=== PATIENT | female | born 1940 | race Caucasian/White ===

== ENCOUNTER 2020-01-18 08:50 | Outpatient (CLI) | payer MEDICARE, SELFPAY ==
--- NOTE | ~2020-01-18 | US_ITS ---
US arterial ankle brachial ind INDICATION: Hypertension. Atherosclerosis. TECHNIQUE: Segmental pressures and plethysmographic and Doppler waveforms of the brachial and lower e xtremity arteries were obtained. COMPARISON: None. FINDINGS: Right and left brachial artery pressures of 191 mm Hg and 184 mm Hg, respectively, are concordant (no rmal difference <= 30 mmHg). The right ankle-brachial index (MIGDALIA) is 1.1 (normal >= 0.9-1.0). The right great toe-brachial index ( TBI) is 0.61 (normal >= 0.60). The left MIGDALIA is 1.08. The left TBI is 0.6. IMPRESSION: 1. Normal bilateral ankle-brachial indices. Reviewed, dictated and finalized at location A.
== END 2020-01-18 08:51 | disposition home or self-care (01) ==
LOC: CHSIMG 08:53
PROVIDERS: PCP Internal Medicine; Visit Provider Internal Medicine
DX: I70.213 Atherosclerosis of native arteries of extremities with intermittent claudication, bilateral legs (principal)
CPT/HCPCS: 93922

== ENCOUNTER 2020-04-08 07:35 | Outpatient (CLI) | payer MEDICARE, SELFPAY ==
--- NOTE | ~2020-04-08 | MR_ITS ---
EXAMINATION: MR lumbar spine wo con DATE: 04/08/2020 08:26 INDICATION: Chronic low back pain TECHNIQUE: Magnetic resonance imaging (MRI) of the lumbar spine was performed without intravenous con trast. Sequences included sagittal T2-weighted FSE, sagittal T2-weighted FS FSE, sagittal T1-weighted FSE, and axial T2-weighted FSE. COMPARISON: 09/16/2015 FINDINGS: Mild lumbar levocurvature and compensatory dextrocurvature centered at the thoracolumbar junction. 2 mm retrolisthesis L2 on L3, 2 mm anterolisthesis L3 on L4 and 4 mm anterolisthesis L4 on L5. There ar e Schmorl's nodes at several levels in the lumbar and lower thoracic spine. Vertebral body heights ar e normal. Moderate to severe disc height loss at L2-L3 and L3-L4, moderate disc height loss at L4-L5 and mild disc height loss at L5-S1. The conus medullaris terminates at L2. There is normal signal in the caudal spinal cord. [place] disease with degenerative changes along the articulating cephalad and caudal margin of the L1-L5 spinous processes. Paravertebral soft tissues are unremarkable. The follo wing disc levels are specifically discussed: T12-L1: The disc does not extend beyond the endplate margin. There is mild bilateral facet joint oste oarthritis. There is no neural foraminal stenosis. There is no central canal stenosis. L1-L2: Disc is mildly bulging. There is mild left and mild to moderate right facet joint osteoarthrit is. There is mild bilateral neural foraminal stenosis. There is minimal central canal stenosis. L2-L3: Disc is bulging with annular fissure. There is hypertrophy of the ligamentum flavum. There is moderate to severe bilateral facet joint osteoarthritis. There is moderate to severe bilateral neura l foraminal stenosis. There is moderate to severe central canal stenosis with minimal CSF signal surr ounding the centrally clustered nerve roots. L3-L4: Disc is bulging with annular fissure. There is hypertrophy of the ligamentum flavum. There is severe bilateral facet joint osteoarthritis. There is moderate bilateral neural foraminal stenosis. There is moderate to severe central canal stenosis with minimal CSF signal surrounding the centrally clustered nerve roots. L4-L5: Disc is bulging with annular fissure There is severe bilateral facet joint osteoarthritis. The re is moderate left and moderate to severe right neural foraminal stenosis. There is severe central c anal stenosis. L5-S1: Annular fissure and small left foraminal zone disc protrusion There is severe bilateral facet joint osteoarthritis. There is mild to moderate right and mild left neural foraminal stenosis. There is no central canal stenosis. IMPRESSION: 1. Severe lumbar spondylosis. Reviewed, dictated and finalized at location A.
== END 2020-04-08 07:36 | disposition home or self-care (01) ==
LOC: CHSIMG 07:37
PROVIDERS: PCP Internal Medicine; Visit Provider Internal Medicine
DX: M54.5 Low back pain (principal); M54.10 Radiculopathy, site unspecified
CPT/HCPCS: 72148

== ENCOUNTER 2020-05-08 09:00 | Outpatient (CLI) | payer MEDICARE, SELFPAY ==
--- NOTE | ~2020-05-08 | US_ITS ---
US arterial ankle brachial ind INDICATION: Claudication. Atherosclerosis. TECHNIQUE: Segmental pressures and plethysmographic and Doppler waveforms of the brachial and lower e xtremity arteries were obtained. COMPARISON: None. FINDINGS: Right and left brachial artery pressures of 187 mm Hg and 196 mm Hg, respectively, are concordant (no rmal difference <= 30 mmHg). The right ankle-brachial index (MIGDALIA) is 1.14 (normal >= 0.9-1.0). The right great toe-brachial index (TBI) is normal (normal >= 0.60). The left MIGDALIA is 1.04. The left TBI is normal. IMPRESSION: 1. Normal bilateral ankle-brachial indices. Reviewed, dictated and finalized at location A.
== END 2020-05-08 09:01 | disposition home or self-care (01) ==
LOC: CHSIMG 09:01
PROVIDERS: PCP Internal Medicine; Visit Provider Neurological Surgery
DX: I70.213 Atherosclerosis of native arteries of extremities with intermittent claudication, bilateral legs (principal)
CPT/HCPCS: 93922

== ENCOUNTER 2020-08-17 14:01 | Emergency (ER) | payer MEDICARE, SELFPAY ==
--- NOTE | ~2020-08-17 | XR_ITS ---
EXAMINATION: XR ankle LT min 3V DATE: 08/17/2020 14:35 INDICATION: Left ankle pain TECHNIQUE: Anteroposterior, lateral, mortise, and additional oblique view of the ankle were obtained. COMPARISON: None. FINDINGS: There is a linear heterotopic ossification projecting dorsal to the navicular on the latera l view. There is soft tissue swelling of the dorsal foot and ankle. Bone alignment is normal. Advance d osteoarthritis is noted at the tarsometatarsal joints. Calcified atherosclerosis is noted. IMPRESSION: 1. 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 Reviewed, dictated and finalized at location A. Y MANAGER IMPRESSION: 1. Linear heterotopic ossification projecting dorsal to the navicular on the la teral view which could reflect avulsion injury.
--- NOTE | ~2020-08-17 | XR_ITS ---
EXAMINATION: XR foot LT min 3V DATE: 08/17/2020 14:35 INDICATION: Left foot pain TECHNIQUE: Dorsoplantar, lateral, and 2 oblique views of the left foot were obtained. COMPARISON: None. FINDINGS: The bones are osteopenic which limits sensitivity for fracture. There is a linear heterotop ic ossification projecting dorsal to the navicular on the lateral view. There is dorsal soft tissue s welling of the foot. Moderate osteoarthritis is noted in multiple interphalangeal joints. There is al so moderate osteoarthritis at the first metatarsophalangeal joint. Severe osteoarthritis is noted at the second through fifth tarsometatarsal joints. Calcified atherosclerosis is noted. IMPRESSION: 1. 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 Reviewed, dictated and finalized at location A. STANT PROJECT MANAGER IMPRESSION: 1. Linear heterotopic ossification projecting dorsal to the navicular on the la teral view which could reflect avulsion injury.
--- NOTE | 2020-08-17 14:14 | ED.LOWEXIN ---
HPI - Extremity Injury (Lower) General Chief Complaint: Fall Stated Complaint: fell a week ago pain and bruising in l foot Time Seen by Provider: 08/17/20 14:03 Source: patient Mode of arrival: ambulatory Limitations: no limitations History of Present Illness HPI Narrative: 80-year-old woman comes in today complaining of left ankle and foot pain that started approximately 1 week ago. Patient states that her daughter's dog knocked her over and she fell forward on her knees, injuring her knees and feet. She states that she no longer has pain in her right ankle or foot but her left ankle and foot continued to her and show swelling and bruising. She denies any numbness or tingling. She denies head injury or other injuries. She takes warfarin for factor 5 Leivinicio LAMA complaint: ankle injury and foot injury Onset (ago): day(s) (9) Injury: Left: ankle, foot and toes Type of Injury: hyperflexion Place: home Severity: moderate Relieving factors: rest Exacerbating factors: weight bearing, movement and palpation Context: fall Associated symptoms: swelling and ambulatory Other symptoms: none Related Data Home Medications Medication Instructions Recorded Confirmed hydrocodone-acetaminophen 1 tablet PO Q4H PRN 08/17/20 08/17/20 losartan 100 mg PO DAILY 08/17/20 08/17/20 warfarin 4 mg PO DAILY 08/17/20 08/17/20 Allergies Allergy/AdvReac Type Severity Reaction Status Date / Time No Known Allergies Allergy Unverified 08/17/20 14:28 Review of Systems Constitutional: Constitutional: Denies chills and Denies fever(s) ENT: Denies dysphagia, Denies nasal congestion and Denies sore throat Cardiovascular: Cardiovascular: Denies chest pain and Denies radiating jaw, neck or arm pain Respiratory: Respiratory: Denies cough and Denies dyspnea Gastrointestinal: Gastrointestinal: Denies abdominal pain, Denies nausea and Denies vomiting Neurologic: Denies vertigo, Denies dizziness, Denies syncope and Denies focal weakness Hematologic/Lymphatic: Hematologic/Lymphatic: Reports easy bleeding and Reports easy bruising Allergic/Immunologic: Allergic/Immunologic: Denies lip swelling and Denies tongue swelling PMFSH Past Medical History Medical History (Updated 08/17/20 @ 15:03 by Jhonny Rios MD) Factor 5 Leiden mutation, heterozygous Hypertension Family History Family History (Updated 07/30/17 @ 09:22 by DOCTOR UNKNOWN) Father Family history of emphysema, Onset Age: 87 Other Cerebrovascular accident Family history of arthritis Family history of lung cancer Family history of malignant neoplasm of ovary Family history of pancreatic cancer Hypertension Social History Social History Smoking status: Never smoker Alcohol intake: never Gender identity (if verbalized by the patient): Female Exam Const: General: no acute distress and alert Nutritional Appearance: obese Orientation/consciousness: patient oriented x3 Limitations: no limitations Eyes: Conjunctivae: conjunctivae normal Pupils: Equal, round and reactive pupils present EOM: EOMs intact bilaterally Resp: Effort & Inspection: normal respiratory effort and not labored Auscultation: clear to auscultation bilaterally, no rales, no rhonchi and no wheezes Cardio: Rate: regular rate Rhythm: regular rhythm Heart sounds: no murmurs Skin: General skin exam: normal color, no jaundice and no pallor Rashes: no rashes Neuro: General: patient oriented x3, moves all extremities, no focal motor deficits and CN's II-XI intact bilaterally Speech: normal speech Gait exam (Neuro): Normal gait present Extrem: General: normal to inspection and no clubbing, cyanosis or edema Other: contusions of her both anterior knees. Will show normal range of motion. Right foot and ankle show no tenderness and has normal range of motion. There is mild edematous swelling and bruising over left foot pa
[2020-08-17 14:19] VITALS: BP 203/89; PULSE 73; RESP 20; TEMP 36.7; O2SAT 97
[2020-08-17 15:25] VITALS: BP 168/64; PULSE 60; RESP 20; O2SAT 99
== END 2020-08-17 15:28 | disposition home or self-care (01) ==
PROVIDERS: Emergency Provider Emergency Medicine; PCP Internal Medicine
DX: S92.255A Nondisplaced fracture of navicular [scaphoid] of left foot, initial encounter for closed fracture (principal); W19.XXXA Unspecified fall, initial encounter
CPT/HCPCS: 73610; 73630; 99283; 99284; L2112

== ENCOUNTER 2020-12-11 16:34 | Outpatient (CLI) | payer MEDICARE, SELFPAY ==
--- NOTE | ~2020-12-11 | US_ITS ---
EXAMINATION: US venous doppler LE RT DATE: 12/11/2020 17:25 INDICATION: Right lower limb swelling TECHNIQUE: Grayscale ultrasound images without and with compression and Doppler ultrasound images of the right lower extremity veins were obtained. COMPARISON: None. FINDINGS: The visualized portions of right common femoral vein, profunda (deep) femoral vein, femoral vein, pop liteal vein, peroneal trunk, posterior tibial veins, peroneal veins, gastrocnemius vein and greater s aphenous vein outflow are patent. IMPRESSION: 1. No deep venous thrombosis in the right lower limb. Reviewed, dictated and finalized at location A.
[2020-12-11 17:56] LABS: Basophils Absolute Auto 0.1 K/mm3 (0.0-0.1); Basophils Percent Auto 0.7 % (0.2-1.2); Eosinophils Absolute Auto 0.2 K/mm3 (0-0.3); Eosinophils Percent Auto 3.3 % (0-4.4); Hematocrit 40.6 % (37.0-47.0); Hemoglobin 12.7 g/dL (12.0-15.0); Immature Granulocyte Absolute 0.01 K/mm3 (0.00-0.031); Immature Granulocyte Percent A 0.1 % (0-0.5); Lymphocytes Absolute Auto 1.21 K/mm3 (0.9-3.2); Lymphocytes Percent Auto 17.3 % (18.3-44.2); Mean Corpuscular HGB Conc 31.3 g/dl (32-36); Mean Corpuscular Volume 92.7 fl (80-100); Mean Platelet Volume 10.7 fl (7.4-10.4); Monocytes Absolute Auto 0.6 K/mm3 (0.1-0.6); Monocytes Percent Auto 8.4 % (2.6-8.5); Neutrophils Absolute Auto 4.9 K/mm3 (1.3-6.7); Neutrophils Percent Auto 70.2 % (45.5-73.1); Platelet Count Result 228 k/mm3 (150-375); Red Blood Count 4.38 M/mm3 (4.2-5.4); Red Cell Distribution Width 14.4 % (11.5-14.5)
[2020-12-11 18:08] LABS: Anion Gap 4 mmol/L (8-16); Blood Urea Nitrogen 24 mg/dL (7-17); CRP 0.7 mg/dL (<1.0); Calcium 9.3 mg/dL (8.4-10.2); Carbon Dioxide 31 mmol/L (22-30); Chloride 105 mmol/L (98-107); Estimated Glomerular Filt Rate > 60; Glucose 106 mg/dL (65-105); Potassium 4.1 mmol/L (3.4-5.0); Sodium 140 mmol/L (137-145)
[2020-12-11 18:23] LABS: Erythrocyte Sedimentation Rate 28 mm/hr (0-20)
== END 2020-12-11 16:35 | disposition home or self-care (01) ==
PROVIDERS: PCP Internal Medicine; Visit Provider Orthopaedic Surgery
DX: R60.0 Localized edema (principal); M25.561 Pain in right knee
CPT/HCPCS: 36415; 80048; 85025; 85652; 86140; 93971

== ENCOUNTER 2020-12-25 17:40 | Outpatient (NON) | payer MEDICARE, SELFPAY ==
[2020-12-25 19:09] LABS: Appearance Synovial Fluid Hazy (Clear); Color Synovial Fluid Yellow (Colorless); Crystals Synovial Fluid None Seen (None Seen); Source Synovial Fluid Synovial fluid
[2020-12-25 19:10] LABS: Lymphocytes Synovial Fluid 93 %; Monocytes Synovial Fluid 3 %; Neutrophils Synovial Fluid 4 % (0-25); Nucleated Cell Synovial Fluid 33847 /uL (0-200); RBC Synovial Fluid 11543 /uL (0-0)
== END 2020-12-25 17:41 | disposition home or self-care (01) ==
PROVIDERS: PCP Internal Medicine; Visit Provider Orthopaedic Surgery
DX: M25.561 Pain in right knee (principal); Z96.651 Presence of right artificial knee joint
CPT/HCPCS: 87070; 87075; 87205; 89051; 89060

== ENCOUNTER 2021-01-09 12:20 | Outpatient (CLI) | payer MEDICARE, SELFPAY ==
--- NOTE | 2021-01-09 12:34 | ECHO_ITS ---
Patient Info Name: Reva Pan Age: 80 years : 1940 Gender: Female Ht: 65 in Wt: 199 lbs BSA: 2.07 m2 HR: 55 bpm BP: 154 / 56 mmHg Heart Rhythm: Sinus Rhythm Technical Quality: Good Exam Date: 01/09/2021 12:24 PM Exam Location: [facility] Patient Status: Outpatient Admit Date: 01/09/2021 Staff Ordering Physician: Katerina Saenz MD Store Team Member: Jessie Bryan RDCS Attending Provider: Katerina Saenz MD Referring Physician: Dany MUNIZ; Exam Type: CA echo doppler color flow Study Info Indications I10 - Essential (primary) hypertension I44.7 - Left bundle-branch block, unspecified Complete two-dimensional, color flow and Doppler transthoracic echocardiogram is performed. Strain analysis performed. History/Risk Factors Hypertension: Yes Dyslipidemia: No Peripheral Arterial Disease (PAD): No Myocardial Infarction (DC): No Obesity: Yes Renal Disease: No Congestive Heart Failure (CHF): No Diabetes Mellitus: No Tobacco Use: Never Cerebrovascular Disease: No DVT Treatment: Warfarin Deep Vein Thrombosis (DVT): Acute Dialysis: None Frailty Scale (CSHA): 4: Vulnerable Summary 1. Complete two-dimensional, color flow and Doppler transthoracic echocardiogram is performed. 2. Left ventricular chamber dimension is normal. 3. Left ventricular systolic function is normal, estimated at 55-60%. 4. There is mildly increased left ventricular wall thickness. 5. Left ventricular septal wall motion is abnormal with septal motion related to bundle branch block. 6. The left ventricular diastolic function is grade I diastolic dysfunction. 7. E/e' 23 is elevated. 8. Global longitudinal strain is normal at -17.7%. 9. Left atrial chamber dimension is mildly enlarged. 10. There is trace aortic valve regurgitation. 11. The mitral valve has moderately calcified annulus. 12. There is mild mitral valve regurgitation. 13. There is mild tricuspid valve regurgitation. 14. Mild pulmonary hypertension, estimated pulmonary arterial systolic pressure is 43 mmHg. 15. There is trace pulmonic regurgitation. Left Ventricle E/e' 23 is elevated. Global longitudinal strain is normal at -17.7%. Left ventricular chamber dimension is normal. Left ventricular systolic function is normal, estimated at 55-60%. There is mildly increased left ventricular wall thickness. Left ventricular septal wall motion is abnormal with septal motion related to bundle branch block. The left ventricular diastolic function is grade I diastolic dysfunction. Right Ventricle Right ventricular systolic function is normal with normal TAPSE 1.7 cm.. Right ventricular chamber dimension is normal. Left Atria Left atrial chamber dimension is mildly enlarged. Right Atria Right atrial chamber dimension is normal. Aortic Valve The aortic valve is trileaflet. There is no aortic valve stenosis. There is trace aortic valve regurgitation. Pulmonic Valve There is trace pulmonic regurgitation. Mitral Valve The mitral valve has moderately calcified annulus. There is no mitral valve stenosis. There is mild mitral valve regurgitation. Tricuspid Valve There is mild tricuspid valve regurgitation. Mild pulmonary hypertension, estimated pulmonary arterial systolic pressure is 43 mmHg. Pericardium/Pleural There is no pericardial effusion. Inferior Vena Cava Normal inferior vena cava with >50% collapse upon inspirat
[2021-01-09 12:45] LABS: INR 1.6; Prothrombin Time 16.3 Seconds (9.50-12.10)
[2021-01-09 14:01] LABS: Rheumatoid Factor Screen Negative (Negative)
[2021-01-12 20:49] LABS: Anti Cyclic Citrullinated Pept <16 Units (<20)
== END 2021-01-09 12:21 | disposition home or self-care (01) ==
LOC: CHSIMG 12:23
PROVIDERS: PCP Internal Medicine; Visit Provider Internal Medicine Cardiovascular Disease
DX: I44.7 Left bundle-branch block, unspecified (principal); Z96.651 Presence of right artificial knee joint; Z79.01 Long term (current) use of anticoagulants
CPT/HCPCS: 36415; 85610; 86038; 86200; 86430; 93306

== ENCOUNTER 2021-01-11 11:37 | Outpatient (CLI) | payer MEDICARE, SELFPAY ==
[2021-01-11 13:31] LABS: Albumin Level 4.3 g/dL (3.5-5.1)
[2021-01-11 13:33] LABS: Hemoglobin A1C 5.3 % (<5.7)
[2021-01-11 13:42] LABS: INR 1.4; Prothrombin Time 17.7 Seconds (11.1-14.7)
[2021-01-11 13:43] LABS: Partial Thromboplastin Time 31.3 SECONDS (22.3-36.8)
[2021-01-11 14:52] LABS: Urine Cotinine NEGATIVE
== END 2021-01-11 11:38 | disposition home or self-care (01) ==
LOC: ANHSURGERY 11:41
PROVIDERS: PCP Internal Medicine; Visit Provider Orthopaedic Surgery
DX: Z01.812 Encounter for preprocedural laboratory examination (principal); M17.11 Unilateral primary osteoarthritis, right knee; Z51.81 Encounter for therapeutic drug level monitoring; Z79.899 Other long term (current) drug therapy
CPT/HCPCS: 80307; 82040; 83036; 85610; 85730; 87070

== ENCOUNTER 2021-01-17 18:02 | Outpatient (CLI) | payer MEDICARE, SELFPAY ==
--- NOTE | ~2021-01-17 | XR_ITS ---
XR chest 2V DATE: 01/17/2021 18:33 INDICATION: Shortness of breath, wheezing, hypertension TECHNIQUE: PA and lateral views COMPARISON: 07/29/2017 two-view chest 08/04/2017 CT chest high resolution scan FINDINGS: There is cardiomegaly. Is aortic calcification, ectasia and unfolding. There is mild promin ence of superior mediastinum, likely due to tortuous great vessels. No hilar or mediastinal enlargement is noted otherwise. The lungs are moderately hyperinflated but clear of infiltrate or consolidation. Diffuse osteopenia. Degenerative changes of the thoracic and lumbar spine. Diffuse osteopenia. Degenerative spurring of the thoracic spine. IMPRESSION: Cardiomegaly, aortic atherosclerosis Bilateral hyperinflation; no active pulmonary disease or significant change since 07/29/2017 Reviewed, dictated and finalized at location A. IMPRESSION: Cardiomegaly, aortic atherosclerosis Bilateral hyperinflation; no active pulmonary disease or significant change sin 07/29/2017
[2021-01-17 18:42] LABS: Add Urine Microscopic? NO; Appearance Urine Clear (Clear); Bilirubin Urine Negative (Negative); Blood Urine Negative (Negative); Color Urine Yellow (Yellow); Glucose Urine UA Negative (Negative); Ketones Urine Negative (Negative); Leukocyte Esterase Ur Negative (Negative); Nitrate Urine Negative (Negative); Protein Urine Negative (Negative); Specific Grav Ur >= 1.030 (1.010-1.020)
[2021-01-17 18:43] LABS: Basophils Absolute Auto 0.05 K/mm3 (0.00-0.10); Basophils Percent Auto 0.9 % (0.0-1.0); Eosinophils Absolute Auto 0.57 K/mm3 (0.02-0.50); Eosinophils Percent Auto 9.8 % (1.0-6.0); Hematocrit 37.8 % (35.0-42.0); Hemoglobin 12.1 g/dL (11.7-13.8); Immature Granulocyte Absolute 0.02 K/mm3 (0.00-0.00); Immature Granulocyte Percent A 0.3 % (0.0-0.0); Lymphocytes Absolute Auto 1.26 K/mm3 (1.10-4.50); Lymphocytes Percent Auto 21.8 % (18.0-42.0); Mean Corpuscular Hemoglobin 29.4 pg (27.0-31.0); Mean Corpuscular Volume 91.7 fL (78.0-102.0); Mean Platelet Volume 11.3 fl (9.2-11.8); Monocytes Absolute Auto 0.49 K/mm3 (0.10-0.90); Monocytes Percent Auto 8.5 % (2.0-11.0); Neutrophils Absolute Auto 3.4 K/mm3 (1.7-7.2); Neutrophils Percent Auto 58.7 % (50.0-70.0); Platelet Count Result 223 K/mm3 (150-420); Red Blood Count 4.12 M/mm3 (4.20-5.40); Red Cell Distribution Width 14.1 % (11.6-14.4); White Blood Count 5.8 K/mm3 (4.8-10.8)
[2021-01-17 19:45] LABS: Alanine Aminotransferase 17 U/L (14-59); Albumin Level 3.4 g/dL (3.4-5.0); Alkaline Phosphatase 116 U/L (46-116); Anion Gap 9 mmol/L (8-16); Aspartate Amino Transferase 17 U/L (15-37); Bilirubin,Total 0.2 mg/dL (0.00-1.00); Blood Urea Nitrogen 19 mg/dL (7-18); Calcium 8.7 mg/dL (8.5-10.1); Carbon Dioxide 27 mmol/L (21-32); Chloride 106 mmol/L (98-108); Creatine Kinase 43 U/L (26-192); Estimated Glomerular Filt Rate > 60; Free T3 2.79 pg/mL (2.18-3.98); Free T4 Free Thyroxine 0.98 ng/dL (0.76-1.46); Glucose 103 mg/dL (70-99); NT Pro B Type Natriuretic Pept 525 pg/mL (0-450); Osmolality Calculated 296 mOsm/kg (285-295); Potassium 4.6 mmol/L (3.5-5.1); Sodium 142 mmol/L (136-145); Thyroid Stimulating Hormone 0.16 uIU/mL (0.36-3.74); Total Protein 6.9 g/dL (6.4-8.2); Vitamin B12 543 pg/mL (193-986)
== END 2021-01-17 18:03 | disposition home or self-care (01) ==
LOC: CHSLAB 18:03
PROVIDERS: PCP Internal Medicine; Visit Provider Internal Medicine
DX: R06.2 Wheezing (principal); I11.0 Hypertensive heart disease with heart failure; I50.42 Chronic combined systolic (congestive) and diastolic (congestive) heart failure; E78.5 Hyperlipidemia, unspecified; G60.3 Idiopathic progressive neuropathy; E05.90 Thyrotoxicosis, unspecified without thyrotoxic crisis or storm
CPT/HCPCS: 36415; 71046; 80053; 81003; 82550; 82607; 83880; 84439; 84443; 84481; 85025

== ENCOUNTER → 2021-01-26 03:27 | Outpatient (CLI) | payer MEDICARE, SELFPAY ==
[2021-01-26 19:50] LABS: SARS-CoV-2 RNA PCR Negative
== END ==
PROVIDERS: PCP Internal Medicine; Visit Provider Orthopaedic Surgery
DX: Z01.812 Encounter for preprocedural laboratory examination (principal); Z20.822 Contact with and (suspected) exposure to COVID-19
CPT/HCPCS: C9803; U0003; U0005

== ENCOUNTER 2021-01-30 08:41 | Observation (INO) | payer MEDICARE, SELFPAY ==
[2021-01-11 12:00] VITALS: BMI 34.2
[2021-01-11 13:01] VITALS: BP 172/66; PULSE 54; RESP 16; TEMP 36.6; O2SAT 97
--- NOTE | 2021-01-26 09:09 | WPDANESEPPF ---
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 Patient Data Age: 80 Gender: F Height: 1.65 m Weight: 93.5 kg Last Vital Signs Temp 36.6 C 01/11/21 13:01 Pulse 54 L 01/11/21 13:01 Resp 16 01/11/21 13:01 BP 172/66 H 01/11/21 13:01 Pulse Ox 97 01/11/21 13:01 Allergies Allergy/AdvReac Type Severity Reaction Status Date / Time cyclobenzaprine AdvReac Hallucinati Verified 01/29/21 06:27 ng Home Medications Medication Instructions Recorded Confirmed Type hydrocodone-acetaminophen 1 tablet PO Q4H PRN 08/17/20 01/29/21 History warfarin 4 mg PO DAILY 08/17/20 01/29/21 History calcium carbonate-vitamin D2 1 tablet PO DAILY 01/11/21 01/29/21 History [Calcium + Vitamin D] cholecalciferol (vitamin D3) 100 mcg PO DAILY 01/11/21 01/29/21 History magnesium 250 mg PO DAILY 01/11/21 01/29/21 History acetaminophen 500 mg PO Q6H PRN 01/29/21 01/29/21 History carvedilol 12.5 mg PO BID 01/29/21 01/29/21 History Other Studies: Admit Date: 01/09/2021 Exam Type: CA echo doppler color flow Summary 1. Complete two-dimensional, color flow and Doppler transthoracic echocardiogram is performed. 2. Left ventricular chamber dimension is normal. 3. Left ventricular systolic function is normal, estimated at 55-60%. 4. There is mildly increased left ventricular wall thickness. 5. Left ventricular septal wall motion is abnormal with septal motion related to bundle branch block. 6. The left ventricular diastolic function is grade I diastolic dysfunction. 7. E/e' 23 is elevated. 8. Global longitudinal strain is normal at -17.7%. 9. Left atrial chamber dimension is mildly enlarged. 10. There is trace aortic valve regurgitation. 11. The mitral valve has moderately calcified annulus. 12. There is mild mitral valve regurgitation. 13. There is mild tricuspid valve regurgitation. 14. Mild pulmonary hypertension, estimated pulmonary arterial systolic pressure is 43 mmHg. 15. There is trace pulmonic regurgitation. Patient hx anesthesia problems: none Family hx anesthesia problems: none [facility] Past Medical History Medical History Arthritis DVT (deep venous thrombosis) Factor 5 Leiden mutation, heterozygous Hypertension Obesity Family History Family History Father Family history of emphysema, Onset Age: 87 Other Cerebrovascular accident Family history of arthritis Family history of lung cancer Family history of malignant neoplasm of ovary Family history of pancreatic cancer Hypertension Social History Social History Smoking status: Never smoker Additional smoking assessment comments: DENIES ANY FORM OF TOBACCO USE Alcohol intake: never Living arrangements: with family Gender identity (if verbalized by the patient): Female Spiritual care concerns: No Anes - Eval Final PreProcedure Day of Procedure 01/26/21 09:09 Patient weight: obese Heart: regular rate and rhythm Lungs: clear to auscultation and normal air movement Airway: Mallampati scale class II Neurological: alert and oriented Last oral intake: >/= 8 hours ASA classification: III Emergent: no Anesthetic plan: proceed Anesthesia type and monitoring: general ETT Informed Consent: The patient's anesthetic plan and its attendant risks and benefits were discussed with the patient/family/POA. Questions were solicited and answers provided to the satisfaction of the patient/family/POA.
--- NOTE | 2021-01-26 11:38 | PM.IMHP ---
H&P: HPI History of Present Illness Date/Time: 01/26/21 11:38 80-year-old female who presents today for revision of her left partial knee replacement to a total knee replacement. She had her initial surgery for the partial knee replacement in July 2017 was doing very well up until July of 2020. That time she fell on her knees. She had immediate pain in the knees and since that time she has had continued symptoms of pain in the knee. She has had her left knee replaced with a total knee arthroplasty in 2018 this is doing very well for her. She was initially evaluated in late November of this year. X-rays at that time show that unfortunately she has had progression of the lateral compartment arthritis in the knee to the point where she is [id number] on the PA flexion view. Patient is fairly miserable on a daily basis with the symptoms in her knee. She has not have any fracturing or loosening of the component. The left knee was evaluated for infection which the cultures were all negative. She is on Coumadin chronically and therefore unable take anti-inflammatories. Patient feels that she is having enough pain on a daily basis that she would rather proceed with revision of the partial knee to total knee arthroplasty rather continue with nonsurgical treatment. 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 Review of Systems Review of Systems: All systems reviewed & are unremarkable except as noted in HPI and below PMFSH Past Medical History Medical History Arthritis DVT (deep venous thrombosis) Factor 5 Leiden mutation, heterozygous Hypertension Obesity Family History Family History Father Family history of emphysema, Onset Age: 87 Other Cerebrovascular accident Family history of arthritis Family history of lung cancer Family history of malignant neoplasm of ovary Family history of pancreatic cancer Hypertension Social History Social History Smoking status: Never smoker Additional smoking assessment comments: DENIES ANY FORM OF TOBACCO USE Alcohol intake: never Gender identity (if verbalized by the patient): Female Spiritual care concerns: No Meds Home Medications and Allergies Home Medications Medication Instructions Recorded Confirmed Type hydrocodone-acetaminophen 1 tablet PO Q4H PRN 08/17/20 01/11/21 History losartan 100 mg PO DAILY 08/17/20 01/11/21 History warfarin 4 mg PO DAILY 08/17/20 01/11/21 History calcium carbonate-vitamin D2 1 tablet PO DAILY 01/11/21 01/11/21 History [Calcium + Vitamin D] cholecalciferol (vitamin D3) 100 mcg PO DAILY 01/11/21 01/11/21 History magnesium 250 mg PO DAILY 01/11/21 01/11/21 History Allergies Allergy/AdvReac Type Severity Reaction Status Date / Time cyclobenzaprine AdvReac Hallucinati Verified 01/11/21 12:03 ng Exam Narrative: Exam Narrative: 80-year-old female very alert pleasant. She is 5 ft 4 204 lb. She is using a walker full-time in limping due to pain in the right knee. Right knee range of motion is from 0-135 degrees. She has moderately severe tenderness over the mid lateral and anterior lateral joint lines. No instability in the knee. No effusion. Hip range of motion is full without discomfort. Negative Stinchfield maneuver. 2+ dorsalis pedis pulse. She does have prominent dependent rubor in her forefeet and toes bilaterally and 2+ pedal edema on the right 1+ pedal edema on left. He has normal sensation below lower extremities. Normal quad strength. Resp: Auscultation: clear to auscultation bilaterally Cardio: Rate: regular rate Rhythm: regular rhythm Assessment and Plan Additional Plan Patient is 4 and half years out from her right partial knee replacement. Unfortunately she has developed severe lateral compartment arthritis in t
[2021-01-29] VITALS (17 sets, daily range): BP systolic 102–177; BP diastolic 46–71; PULSE 53–81; RESP 14–20; TEMP 36.3–37.1; O2SAT 93–100
[2021-01-29] MEDS: LACTATED RINGERS 1,000 ML 30 ML IV CONT ×2 (06:55→13:12)
--- NOTE | 2021-01-29 07:09 | WPDHPUPDATE1 ---
History and Physical Update Update Date/Time: 01/29/21 07:09 History and Physical has been reviewed, including an updated exam of the patient. There are NO changes in the patient's condition. Risks, benefits, and alternatives have been discussed and questions answered. Patient agrees to proceed with procedure.
[2021-01-29] MEDS: ceFAZolin 2 GM/D5W 50 ML 2 GM/50 ML BAG IVPB (07:21)
[2021-01-29 07:27] LABS: INR 1.2; Prothrombin Time 15.3 Seconds (11.1-14.7)
[2021-01-29] MEDS: TRANEXAMIC ACID 1,000MG/ISO100 1,000 MG/100 ML BAG 200 MG IVPB (07:30)
[2021-01-29] MEDS: ceFAZolin SODIUM 1 GM VIAL 3 GM IRRIGATION (08:20)
[2021-01-29] MEDS: GENTAMICIN BONE CEMENT REFOBACIN 1 EACH TOPICAL (08:37)
[2021-01-29] MEDS: TRANEXAMIC ACID 1,000 MG/10 ML AMPUL 1000 MG TOPICAL (08:40)
[2021-01-29] MEDS: ceFAZolin SODIUM 1 GM VIAL IV PUSH (12:12)
--- NOTE | 2021-01-29 14:54 | SUR.PHASEI ---
1442 DR TINAJERO AT BEDSIDE- AWARE PT NOT AWAKE AFTER ANESTHESIA.
--- NOTE | 2021-01-29 15:20 | ADMGEN ---
This patient, Reva Pan, was admitted to Medical Room 250-01. Patient/family oriented to hospital policies and general routines including ID bracelet, bed and alarms, visiting hours, pain management, procedures, bathroom and other care routines, personal items, smoking policy, room service/diet, and visiting hours. Information on how to activate the Rapid Response Team has been discussed. Patient/Family are encouraged to report perceived risks to care and to ask questions if they do not understand what they are told or what they should do.
[2021-01-29] MEDS: MORPHINE SULFATE (*CRX) 2 MG/ML INJ IV PUSH (15:41)
[2021-01-29 16:24] LABS: Mean Platelet Volume 10.7 fl (7.4-10.4); Platelet Count Result 156 k/mm3 (150-375)
[2021-01-29] MEDS: oxyCODONE HCL (*CRX) 2.5 MG TAB IR PO ×2 (17:17→20:39)
[2021-01-29] MEDS: ACETAMINOPHEN 500 MG TABLET 1000 MG PO ×2 (17:17→23:49)
--- NOTE | 2021-01-29 17:56 | W.PM.PROC2 ---
Procedure Note - Detailed Date of Procedure 01/29/21 Pre-op Diagnosis failed partial right knee replacement Post-op Diagnosis same Procedure Performed A revision right or into place with to right total knee arthroplasty Surgeon Josue Vaca MD Assistant Inventory Manager Bubba Anesthesia general Indications development of [id number] lateral compartment osteoarthritis Findings same Description of Procedure patient was brought to the operating room and general anesthesia was administered. The right knee was prepped and draped in usual fashion. She had mild medial laxity to valgus stress. She received 2 g of Ancef and weight based vancomycin preoperatively. Unfortunately she also received 1 g of tranexamic acid IV preoperatively as it was on the standing orders and the fact that we wanted to use intra-articular injection at the end of the case instead of intravenous at the beginning was not sufficiently communicated. Limb was exsanguinated and tourniquet elevated to 250 mm of mercury. We saw that her blood pressure went up a little bit with this and we increased her tourniquet pressure to 300 mm of mercury. She a 7 in longitudinal midline incision was used utilizing the previous partial knee replacement incision. A standard parapatellar arthrotomy was utilized. There were mild arthritic changes on the patella. Infrapatellar and suprapatellar fat pads were partially excised and quadriceps synovectomy carried out. The fluid in the joint was clear and she did not have any significant inflammatory synovium her. I had planned on sending cultures but her preoperative cultures were negative with a normal C-reactive protein and we had no clinical signs of infection so I elected to wait until we looked under the implants and there was no abnormal material to send. The anteromedial tibial plateau was exposed. A guide donna was inserted down the femoral canal after aspiration of canal contents in using the 5 degree valgus cutting portion, 10 mm of bone removed the distal femur. This was referenced off the partial knee replacement femoral component. This removed about 7 mm laterally. We could not complete the medial cut of course because the cut intersecting with the femoral component.We then carefully removed the femoral component by using a micro reciprocating saw to develop the bone cement interface is an osteotome around the perimeter and we used a slap hammer on a vice cytotechnologist and we carefully removed this without any removal of bone only methylmethacrylate and the implant which came out as 1 unit. We then removed the tibial component the same fashion. This was removed successfully without removal of bone. The bone underneath this was quite osteopenic but there was an intact rim. The tibia was cut and we were not quite down to the level of the tibial plateau deficiency with the 1st cut so we removed an additional 2 mm which left some posteromedial deficiency but would leave the tibial component supported with bone except for the posteromedial corner. Flexion gap was assessed. It measured 14 mm laterally. White sides line had been drawn earlier on the femur and we set the femoral sizing guide to 6? external rotation in line the vertical pole with white sides line posterior foot plate resting on the lateral femoral condyle and elevated about 5 mm off the medial femoral condyle consistent with the thickness of the implant. Posterior events in pin holes were placed. The femur was cut to a size 65 which was a nice fit without notching. This hung over about a mm laterally with the trial. A smaller implant would certainly have notch and I did not wish to flex the component because I anticipated that we would need to use a donna because of the soft bone in the medial femoral condyle. We trialed at this time with an 11 mm 5 and 1 trial plastic it was very loose medially to valgus stress. In flexion it was more lose to valgus stress. The MCL was palpably intact I believe it wa
[2021-01-29] MEDS: carvediloL 12.5 MG TABLET PO (20:39)
[2021-01-29] MEDS: FAMOTIDINE 20 MG TABLET PO (20:39)
[2021-01-29] MEDS: ENOXAPARIN 30 MG/0.3 ML SYRINGE SUB-Q (20:39)
[2021-01-29] MEDS: SENNA/DOCUSATE SODIUM TABLET 2 TAB PO (20:40)
--- NOTE | 2021-01-29 21:00 | WPDCN ---
Assessment and Plan Assessment and plan (1) Arthritis of right knee: Code(s): M17.11 - Unilateral primary osteoarthritis, right knee Status: Acute Assessment and Plan: Postoperative day 0, status post right total knee arthroplasty. Wound care and pain control will be deferred to Dr. Vaca as well as DVT prophylaxis. Agree with early ambulation and physical therapy. Check baseline labs in a.m. (2) Hypertension: Code(s): I10 - Essential (primary) hypertension Status: Acute Assessment and Plan: Blood pressures were reviewed and they are stable postoperatively. Continue antihypertensives and monitor daily. (3) Chronic anticoagulation: Code(s): Z79.01 - senior living (current) use of anticoagulants Status: Chronic Assessment and Plan: I would resume warfarin with Lovenox bridge as soon as possible but will leave that to the discretion of Dr. Vaca. Additional Plan Thank you for allowing us to participate in this patient's care. Please do not hesitate to contact us with any questions. Supervising physician for this medical consultation is Dr. Yana Pearl. HPI Data of Consult Date/Time: 01/29/21 21:00 Requesting Physician: Josue Vaca MD Primary Care Provider: Sabas Moreira MD Consult Narrative Narrative: This is an 80-year-old female with osteoarthritis, factor 5 Leiden with history of venous thromboembolisms on long-term warfarin, and hypertension whom the hospitalist service has been consulted for management of her medical conditions postoperatively. She had a right partial knee replacement in July 2017 and did well up until sustaining a fall in July 2020 at which time she landed on her knees. She has continued to have ongoing pain in that knee, not amenable to conservative outpatient treatment, and thus she elected for total knee replacement today. Her surgery was performed under general anesthesia with no immediate complications documented an estimated blood loss of 400 cc. She reports having a difficult time waking up in the PACU, and got to the floor a bit late thus she was not able to get up and about with physical therapy. She was able to tolerate dinner without any issues. At the time my evaluation she has just received a pain pill for intermittent stabbing pain along the side of her right knee. She denies paresthesias, skin color, and temperature changes distal to the surgical site. She also denies postoperative fever, chills, chest pain, shortness of breath, nausea, and vomiting. Review of Systems Review of Systems: Narrative: Twelve systems were reviewed with pertinent positives and negatives as per HPI. She wears corrective lenses. Has upper and lower dentures. No recent cold or flu symptoms. No known exposure to those positive for COVID-19. 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 [facility] Past Medical History Medical History Arthritis Chronic anticoagulation 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 Deep venous thrombosis Factor 5 Leiden mutation, heterozygous Hypertension Stress incontinence Surgical History Surgical History History of bilateral cataract extraction History of hysterectomy (1978) History of left mastoidectomy History of lumbar laminectomy (06/05/20) L3-L4, at [facility]. History of partial thyroidectomy (1980) Thyroid goiter removed. 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
[2021-01-30] VITALS (13 sets, daily range): BP systolic 131–156; BP diastolic 47–56; PULSE 63–81; RESP 18–20; TEMP 36–36.7; O2SAT 93–98
--- NOTE | ~2021-01-30 | XR_ITS ---
EXAMINATION: XR knee RT 2V DATE: 01/29/2021 13:46 CDT INDICATION: Right total knee arthroplasty TECHNIQUE: 2 views right knee FINDINGS: There is a right total knee arthroplasty in expected position. Subcutaneous gas with fluid and air in the joint are consistent with recent surgery. No evidence of periprosthetic fracture. IMPRESSION: 1. Recent right total knee arthroplasty. Reviewed, dictated and finalized at location A.
[2021-01-30] MEDS: oxyCODONE HCL (*CRX) 2.5 MG TAB IR PO ×6 (00:14→20:21)
[2021-01-30 05:51] LABS: Basophils Percent Auto 0.4 % (0.2-1.2); Eosinophils Absolute Auto 0.4 K/mm3 (0-0.3); Eosinophils Percent Auto 3.8 % (0-4.4); Hemoglobin 9.9 g/dL (12.0-15.0); Immature Granulocyte Absolute 0.03 K/mm3 (0.00-0.031); Immature Granulocyte Percent A 0.3 % (0-0.5); Lymphocytes Absolute Auto 0.79 K/mm3 (0.9-3.2); Mean Corpuscular HGB Conc 31.9 g/dl (32-36); Mean Corpuscular Hemoglobin 29.1 pg (26-34); Mean Corpuscular Volume 91.2 fl (80-100); Mean Platelet Volume 11.5 fl (7.4-10.4); Monocytes Absolute Auto 1.1 K/mm3 (0.1-0.6); Monocytes Percent Auto 10.9 % (2.6-8.5); Neutrophils Absolute Auto 7.6 K/mm3 (1.3-6.7); Neutrophils Percent Auto 76.6 % (45.5-73.1); Platelet Count Result 143 k/mm3 (150-375); Red Cell Distribution Width 13.8 % (11.5-14.5); White Blood Count 9.9 K/mm3 (4.5-10.0)
[2021-01-30 05:54] LABS: INR 1.3; Prothrombin Time 16.8 Seconds (11.1-14.7)
[2021-01-30 06:01] LABS: Anion Gap 3 mmol/L (8-16); Blood Urea Nitrogen 18 mg/dL (7-17); Calcium 8.4 mg/dL (8.4-10.2); Carbon Dioxide 28 mmol/L (22-30); Chloride 106 mmol/L (98-107); Estimated CRCL calculation 60 ml/min; Estimated Glomerular Filt Rate > 60; Glucose 104 mg/dL (65-105); Magnesium 1.7 mg/dL (1.6-2.3); Sodium 137 mmol/L (137-145)
[2021-01-30] MEDS: ACETAMINOPHEN 500 MG TABLET 1000 MG PO ×3 (06:02→17:09)
--- NOTE | 2021-01-30 06:16 | PM.PNORT ---
Progress Note: A&P Additional Plan POD 1 alert avss, pt had difficult time waking from anesthesia yesterday-was under for extended period of time due to complexity of surg. very alert this am, pain is controlled, moser is out, pt has not been out of bed yet, dressing is dry NVI mild swelling to knee, due to pts advanced age-will plan to keep her for additional night to monitor and to have pt work with PT, will plan to send home tomorrow Subjective Subjective Date/Time Seen: 01/30/21 06:16 Objective Data Vital Signs Vital Signs: Vital Signs - 24 hr 01/29/21 06:42 01/29/21 13:12 01/29/21 13:25 Temperature 36.3 C L 37.1 C Pulse Rate 67 65 56 L Respiratory Rate 20 18 18 Blood Pressure 177/71 H 124/49 L 139/52 L Pulse Oximetry 97 97 99 01/29/21 13:40 01/29/21 13:55 01/29/21 14:10 Temperature Pulse Rate 55 L 59 L 57 L Respiratory Rate 16 16 16 Blood Pressure 139/52 L 146/52 H 140/46 L Pulse Oximetry 100 100 100 01/29/21 14:25 01/29/21 14:40 01/29/21 14:55 Temperature Pulse Rate 53 L 56 L 63 Respiratory Rate 14 14 16 Blood Pressure 148/53 H 159/55 H 167/68 H Pulse Oximetry 100 100 100 01/29/21 15:05 01/29/21 15:45 01/29/21 16:00 Temperature 36.4 C 36.6 C Pulse Rate 62 60 63 Respiratory Rate 14 18 18 Blood Pressure 167/68 H 152/46 H 152/46 H Pulse Oximetry 100 95 93 01/29/21 16:30 01/29/21 17:53 01/29/21 20:00 Temperature 36.6 C 36.3 C L Pulse Rate 60 72 72 Respiratory Rate 18 18 Blood Pressure 173/48 H 130/47 L Pulse Oximetry 94 97 01/29/21 20:39 01/29/21 22:00 01/30/21 00:00 Temperature 36.4 C Pulse Rate 81 55 L 67 Respiratory Rate 20 Blood Pressure 102/57 L Pulse Oximetry 98 01/30/21 00:57 01/30/21 04:00 Temperature 36.4 C L Pulse Rate 72 67 Respiratory Rate 18 Blood Pressure 131/48 L Pulse Oximetry 96 Intake/Output Intake/Output: Intake & Output 01/27/21 01/28/21 01/29/21 01/30/21 23:59 23:59 23:59 23:59 Intake Total 1340 50 Output Total 90 Balance 1250 50 Meds/Results Medications: Active Medications Generic Name Dose Route Start Last Admin Trade Name Freq PRN Reason Stop Dose Admin Acetaminophen 1,000 mg 01/29/21 18:00 01/30/21 06:02 Acetaminophen 500 Mg Tablet PO 1,000 mg Q6HR EMILY Administration Bisacodyl 10 mg 01/29/21 15:12 Bisacodyl 10 Mg Suppository RECTAL DAILY PRN Constipation Carvedilol 12.5 mg 01/29/21 21:00 01/29/21 20:39 Carvedilol 12.5 Mg Tablet PO 12.5 mg Q12HR EMILY Administration Cephalexin HCl 500 mg 01/30/21 12:00 Cephalexin 500 Mg Capsule PO Q6HR EMILY Diphenhydramine HCl 25 mg 01/29/21 15:12 Diphenhydramine Hcl Inj 50 Mg/Ml Vial IV PUSH Q6H PRN Itching Enoxaparin Sodium 30 mg 01/29/21 21:00 01/29/21 20:39 Enoxaparin 30 Mg/0.3 Ml Syringe SUB-Q 30 mg Q12HR EMILY Administration Famotidine 20 mg 01/29/21 21:00 01/29/21 20:39 Famotidine 20 Mg Tablet PO 20 mg Q12HR EMILY Administration Vancomycin HCl 1,000 mg in 250 mls @ 250 mls/hr 01/29/21 19:00 01/30/21 06:03 Vancomycin 1,000 Mg/D5w 250 Ml IVPB 01/30/21 07:59 250 mls/hr Q12H EMILY Administration Cefazolin Sodium 1 gm in 50 mls @ 100 mls/hr 01/29/21 16:00 01/30/21 00:19 Ancef 1 Gm/D5w 50 Ml Pm IVPB 01/30/21 08:29 Infused Q8H EMILY Infusion Magnesium Oxide 200 mg 01/30/21 09:00 Magnesium Oxide 200 Mg Tablet PO 03/01/21 09:01 DAILY EMILY Morphine Sulfate 2 mg 01/29/21 15:12 01/29/21 15:41 Morphine Sulfate (*Crx) 2 Mg/Ml Inj IV PUSH 2 mg Q4H PRN Administration Pain Rated 7-10 Naloxone HCl 0.1 mg 01/29/21 15:12 Naloxone Hcl 0.4 Mg/Ml Vial IV PUSH Q2M PRN Opiate Reversal Ondansetron HCl 4 mg 01/29/21 15:12 Ondansetron Inj 4 Mg/2 Ml Vial IV PUSH Q4H PRN Nausea And Vomiting Oxycodone HCl 2.5 mg 01/29/21 15:12 Oxycodone Hcl (*Crx) 2.5 Mg Tab Ir PO Q4H PRN Pain Rated 1-3 Oxycodone HCl 2.5 m
--- NOTE | 2021-01-30 07:34 | WPDANESPN ---
Anes - Prog Note Post-Op Date/Time: 01/30/21 07:34 Cardiovascular status: normal Respiratory status: normal Airway patency: baseline Mental status: baseline Post-Op hydration status: normal Vital Signs: Last Vital Signs Temp 36.4 C L 01/30/21 00:57 Pulse 67 01/30/21 04:00 Resp 18 01/30/21 00:57 BP 131/48 L 01/30/21 00:57 Pulse Ox 96 01/30/21 00:57 Pain Score (VAS): 0/10. Patient resting in bed at time of assessment, appears comfortable. I/O: Intake & Output 01/29/21 01/29/21 01/30/21 15:59 23:59 07:59 Intake Total 700 540 50 Output Total 90 400 Balance 610 540 -350 Laboratory Tests 01/30/21 05:26 01/30/21 05:26 01/29/21 01/29/21 01/30/21 06:56 16:18 05:26 WBC 9.9 RBC 3.40 L Hgb 9.9 L Hct 31.0 L MCV 91.2 MCH 29.1 MCHC 31.9 L RDW 13.8 Plt Count 156 143 L MPV 10.7 H 11.5 H Immature Gran % (Auto) 0.3 Neut % (Auto) 76.6 H Lymph % (Auto) 8.0 L [place] % (Auto) 10.9 H Eos % (Auto) 3.8 Baso % (Auto) 0.4 Lymph # (Auto) 0.79 L [place] # (Auto) 1.1 H Eos # (Auto) 0.4 H Baso # (Auto) 0.0 Abs Immat Gran (auto) 0.03 Absolute Neuts (auto) 7.6 H Absolute Nucleated RBC 0.0 Nucleated RBC % 0.0 PT INR Sodium Potassium Chloride Carbon Dioxide Anion Gap BUN Creatinine Estim Creat Clear Calc Estimated GFR Glucose Calcium Magnesium Blood Type A Positive Antibody Screen Negative 01/30/21 01/30/21 05:26 05:27 WBC RBC Hgb Hct MCV MCH MCHC RDW Plt Count MPV Immature Gran % (Auto) Neut % (Auto) Lymph % (Auto) [place] % (Auto) Eos % (Auto) Baso % (Auto) Lymph # (Auto) [place] # (Auto) Eos # (Auto) Baso # (Auto) Abs Immat Gran (auto) Absolute Neuts (auto) Absolute Nucleated RBC Nucleated RBC % PT 16.8 H INR 1.3 Sodium 137 Potassium 4.0 Chloride 106 Carbon Dioxide 28 Anion Gap 3 L BUN 18 H Creatinine 0.70 Estim Creat Clear Calc 60 Estimated GFR > 60 Glucose 104 Calcium 8.4 Magnesium 1.7 Blood Type Antibody Screen Post-procedural complaints: none Patient Feedback: Patient satisfied with anesthetic care.
[2021-01-30] MEDS: ONDANSETRON INJ 4 MG/2 ML VIAL IV PUSH (08:22)
[2021-01-30 08:28] LABS: Glucose Point of Care 113 mg/dl (65-105)
--- NOTE | 2021-01-30 08:48 | PCPTNOTE ---
Attempted PT eval. RN stated to hold therapy due to orthostatic hypotension while sitting in chair. Will try again at later time.
[2021-01-30] MEDS: SODIUM CHLORIDE 0.9% IV 250 ML 100 ML IV CONT (09:00)
[2021-01-30] MEDS: ENOXAPARIN 30 MG/0.3 ML SYRINGE SUB-Q ×2 (09:02→20:17)
[2021-01-30] MEDS: CHOLECALCIFEROL 1,000 UNITS TABLET 1000 UNITS PO (10:41)
[2021-01-30] MEDS: FAMOTIDINE 20 MG TABLET PO ×2 (10:41→20:17)
[2021-01-30] MEDS: SENNA/DOCUSATE SODIUM TABLET 2 TAB PO ×2 (10:41→20:17)
[2021-01-30] MEDS: MAGNESIUM OXIDE 200 MG TABLET PO (10:41)
[2021-01-30] MEDS: polyethylene glycoL 3350 17 GM POWD.PACK PO (10:41)
--- NOTE | 2021-01-30 11:17 | PCOTNOTE ---
Attempted OT evaluation. RN stated to hold therapy due to orthostatic hypotension while sitting in chair. Will follow and attempt at later time.
[2021-01-30] MEDS: DEXTROSE 5%/0.9% SOD CHL 1,000 ML 80 ML IV CONT (12:48)
[2021-01-30] MEDS: DEXAMETHASONE SOD PHOS INJ 4 MG/ML VIAL 8 MG IV PUSH (12:49)
[2021-01-30] MEDS: CEPHALEXIN 500 MG CAPSULE PO ×2 (12:55→17:09)
--- NOTE | 2021-01-30 15:27 | PM.IMPN ---
Progress Note: A&P Assessment and Plan (1) Pre-syncope: Code(s): R55 - Syncope and collapse Status: Acute Assessment and Plan: Patietn with pre-syncopal symptoms when being up. Could be a transient drop in BP. Symptoms resolved with fluids and returning to bed. Monitor closely when she is up with therapy. (2) Rash: Code(s): R21 - Rash and other nonspecific skin eruption Status: Acute Assessment and Plan: Very faint rash now. Possibly a drug reaction. Decadron x1 given. Vanco completed. Follow for now. (3) Arthritis of right knee: Code(s): M17.11 - Unilateral primary osteoarthritis, right knee Status: Acute Assessment and Plan: Rt knee arthritis now postoperative day 1 from a right total knee arthroplasty. Continue wound care, pain control and DVT prophylaxis per orthopedics. Continue PT/OT. (4) Hypertension: Code(s): I10 - Essential (primary) hypertension Status: Acute Assessment and Plan: Patient's blood pressure was reviewed on 01/30. BP soft when up to the chair and may have be symtomatic from this. Treated with IV fluids. Coreg held this morning but will resume tonight. (5) Chronic anticoagulation: Code(s): Z79.01 - [facility] (current) use of anticoagulants Status: Chronic Assessment and Plan: Patient on prophylactic Lovenox bridging to Coumadin. Daily INR. (6) Factor 5 Leiden mutation, heterozygous: Code(s): D68.51 - Activated protein C resistance Status: Acute Assessment and Plan: On intermediate manager anticoagulation. 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 Patient up to the chair this morning and became tired, lightheaded and weak. No syncopal episode. No confusion. BP 108/42. She was put back to bed with repeat BP 134/42. Fluid bolus ordered. No CP or SOB. No n/v. Later, she was noted to have a rash in the pelvic region. She was given Decadron and started on scheduled fluids. She had received Vanco earlier. Exam Narrative: Exam Narrative: AF 97.9 156/56 74 18 93% ra Gen - NARD lying semi-recumbent in bed Chest - CTA bilaterally, nml RR CV - RRR S1/S2 with a 2/6 systolic murmur at the USB and apex; 2+ carotid upstrokes without bruits. Abd - Soft, NT/ND, Positive BS Ext - riht knee dressing dry and intact. 1+ bilateral R>L pedal edema Neuro - Alert and oriented. Nonfocal exam. Psych - Nml mood and affect Skin - Warm and dry; faint pink rash proximal thighs and lower back/buttock region Objective Data Vital Signs Vital Signs: Vital Signs - 24 hr 01/29/21 15:45 01/29/21 16:00 01/29/21 16:30 Temperature 97.6 F 97.8 F 97.8 F Pulse Rate 60 63 60 Respiratory Rate 18 18 18 Blood Pressure 152/46 H 152/46 H 173/48 H Pulse Oximetry 95 93 94 01/29/21 17:53 01/29/21 20:00 01/29/21 20:39 Temperature 97.3 F L Pulse Rate 72 72 81 Respiratory Rate 18 Blood Pressure 130/47 L Pulse Oximetry 97 01/29/21 22:00 01/30/21 00:00 01/30/21 00:57 Temperature 97.6 F 97.5 F L Pulse Rate 55 L 67 72 Respiratory Rate 20 18 Blood Pressure 102/57 L 131/48 L Pulse Oximetry 98 96 01/30/21 04:00 01/30/21 04:57 01/30/21 08:00 Temperature 97.1 F L Pulse Rate 67 71 65 Respiratory Rate 20 Blood Pressure 145/47 H Pulse Oximetry 98 01/30/21 10:00 01/30/21 14:00 Temperature 98.0 F 97.9 F Pulse Rate 63 74 Respiratory Rate 18 18 Blood Pressure 142/48 H 156/56 H Pulse Oximetry 97 93 Intake/Output Intake/Output: Intake & Output 01/27/21 01/28/21 01/29/21 01/30/21 23:59 23:59 23:59 23:59 Intake Total 1340 50 Output Total 90 800 Balance 1250 -750 Meds/Results Medications: Active Medications Generic Name Dose Route Start Last Admin
[2021-01-30] MEDS: WARFARIN (*PBKC) 3 MG TABLET 6 MG PO (17:10)
[2021-01-30 17:11] LABS: Hematocrit 34.5 % (37.0-47.0)
[2021-01-30] MEDS: CELECOXIB 100 MG CAPSULE PO (18:24)
[2021-01-30] MEDS: carvediloL 12.5 MG TABLET PO (20:17)
[2021-01-31] VITALS (13 sets, daily range): BP systolic 118–150; BP diastolic 48–57; PULSE 51–82; RESP 14–18; TEMP 35.9–36.5; O2SAT 96–100
[2021-01-31] MEDS: ACETAMINOPHEN 500 MG TABLET 1000 MG PO ×4 (00:25→17:26)
[2021-01-31] MEDS: CEPHALEXIN 500 MG CAPSULE PO ×4 (00:25→17:27)
[2021-01-31] MEDS: oxyCODONE HCL (*CRX) 2.5 MG TAB IR PO ×6 (00:26→21:00)
[2021-01-31] MEDS: DEXTROSE 5%/0.9% SOD CHL 1,000 ML 80 ML IV CONT (00:29)
[2021-01-31 06:27] LABS: Hematocrit 33.4 % (37.0-47.0); Hemoglobin 10.4 g/dL (12.0-15.0); Mean Corpuscular HGB Conc 31.1 g/dl (32-36); Mean Corpuscular Hemoglobin 29.4 pg (26-34); Mean Corpuscular Volume 94.4 fl (80-100); Mean Platelet Volume 11.6 fl (7.4-10.4); Platelet Count Result 141 k/mm3 (150-375); Red Blood Count 3.54 M/mm3 (4.2-5.4); White Blood Count 14.9 K/mm3 (4.5-10.0)
[2021-01-31 06:35] LABS: INR 1.2; Prothrombin Time 16.2 Seconds (11.1-14.7)
[2021-01-31 06:36] LABS: Alanine Aminotransferase 7 U/L (4-35); Albumin Level 3.2 g/dL (3.5-5.1); Alkaline Phosphatase 76 U/L (38-126); Anion Gap 6 mmol/L (8-16); Aspartate Amino Transferase 18 U/L (14-36); Bilirubin,Total 0.4 mg/dL (0.2-1.3); Blood Urea Nitrogen 18 mg/dL (7-17); Calcium 8.6 mg/dL (8.4-10.2); Carbon Dioxide 25 mmol/L (22-30); Chloride 109 mmol/L (98-107); Estimated CRCL calculation 69 ml/min; Estimated Glomerular Filt Rate > 60; Glucose 136 mg/dL (65-105); Potassium 4.3 mmol/L (3.4-5.0); Sodium 140 mmol/L (137-145)
--- NOTE | 2021-01-31 08:10 | PM.PNORT ---
Progress Note: A&P Additional Plan Up in chair. Feels great this am. Feels great today. Did not have PT yesterday due to malaise. Hg 11 yesterday afternoon. AM hb of 9.9 makes no sense. Pt had IV bolus and IVFs after and hg went UP to 11. Hg 10.4 this am. iNR 1,2 this am. On Coumadin and bridging lovenox. No calf swellling or tenderness today. Dressing dry. SM-I right foot/ankle. CR 0.6. Will mobilize today and if doing well, Home tomorrow with [facility]. Subjective Subjective Date/Time Seen: 01/31/21 08:10 Objective Data Vital Signs Vital Signs: Vital Signs - 24 hr 01/30/21 10:00 01/30/21 12:00 01/30/21 14:00 Temperature 36.7 C 36.6 C Pulse Rate 63 68 74 Respiratory Rate 18 18 Blood Pressure 142/48 H 156/56 H Pulse Oximetry 97 93 01/30/21 16:00 01/30/21 20:00 01/30/21 20:17 Temperature Pulse Rate 72 81 78 Respiratory Rate Blood Pressure Pulse Oximetry 01/30/21 20:35 01/30/21 20:38 01/31/21 00:00 Temperature 36.0 C L Pulse Rate 77 66 Respiratory Rate 18 Blood Pressure 133/51 L Pulse Oximetry 95 93 01/31/21 00:02 01/31/21 04:00 01/31/21 04:36 Temperature 35.9 C L 36.5 C Pulse Rate 66 51 L 63 Respiratory Rate 16 16 Blood Pressure 140/48 L 143/57 H Pulse Oximetry 96 97 Intake/Output Intake/Output: Intake & Output 01/28/21 01/29/21 01/30/21 01/31/21 23:59 23:59 23:59 23:59 Intake Total 0458 378 5523 Output Total 90 800 550 Balance 1250 -510 550 Meds/Results Medications: Active Medications Generic Name Dose Route Start Last Admin Trade Name Freq PRN Reason Stop Dose Admin Acetaminophen 1,000 mg 01/29/21 18:00 01/31/21 05:44 Acetaminophen 500 Mg Tablet PO 1,000 mg Q6HR EMILY Administration Bisacodyl 10 mg 01/29/21 15:12 Bisacodyl 10 Mg Suppository RECTAL DAILY PRN Constipation Carvedilol 12.5 mg 01/29/21 21:00 01/30/21 20:17 Carvedilol 12.5 Mg Tablet PO 12.5 mg Q12HR EMILY Administration Celecoxib 100 mg 01/30/21 17:22 01/30/21 18:24 Celecoxib 100 Mg Capsule PO 100 mg DAILY@0800 EMILY Administration Cephalexin HCl 500 mg 01/30/21 12:00 01/31/21 05:45 Cephalexin 500 Mg Capsule PO 500 mg Q6HR EMILY Administration Diphenhydramine HCl 25 mg 01/29/21 15:12 Diphenhydramine Hcl Inj 50 Mg/Ml Vial IV PUSH Q6H PRN Itching Enoxaparin Sodium 30 mg 01/29/21 21:00 01/30/21 20:17 Enoxaparin 30 Mg/0.3 Ml Syringe SUB-Q 30 mg Q12HR EMILY Administration Famotidine 20 mg 01/29/21 21:00 01/30/21 20:17 Famotidine 20 Mg Tablet PO 20 mg Q12HR EMILY Administration Dextrose/Sodium Chloride 1,000 mls @ 80 mls/hr 01/30/21 11:55 01/31/21 00:29 Dextrose 5% Sodium Chloride 0.9% IV CONT 80 mls/hr .[id number] EMILY Administration Magnesium Oxide 200 mg 01/30/21 09:00 01/30/21 10:41 Magnesium Oxide 200 Mg Tablet PO 03/01/21 09:01 200 mg DAILY EMILY Administration Naloxone HCl 0.1 mg 01/29/21 15:12 Naloxone Hcl 0.4 Mg/Ml Vial IV PUSH Q2M PRN Opiate Reversal Ondansetron HCl 4 mg 01/29/21 15:12 01/30/21 08:22 Ondansetron Inj 4 Mg/2 Ml Vial IV PUSH 4 mg Q4H PRN Administration Nausea And Vomiting Oxycodone HCl 2.5 mg 01/30/21 11:53 01/30/21 17:10 Oxycodone Hcl (*Crx) 2.5 Mg Tab Ir PO 2.5 mg Q4H PRN Administration Pain Oxycodone HCl 2.5 mg 01/30/21 17:25 01/31/21 05:44 Oxycodone Hcl (*Crx) 2.5 Mg Tab Ir PO 2.5 mg Q4HR EMILY Administration Polyethylene Glycol 17 gm 01/30/21 09:00 01/30/21 10:41 Polyethylene Glycol 3350 17 Gm Powd.Pack PO 17 gm QAM EMILY Administration Senna/Docusate Sodium 2 tab 01/29/21 21:00 01/30/21 20:17 Senna/Docusate Sodium Tablet PO 2 tab Q12HR EMILY Administration Vitamin D 1,000 units 01/30/21 09:00 01/30/21 10:41 Cholecalciferol 1,000 Units Tablet PO 1,000 units DAILY EMILY Administration Warfarin Sodium 6 mg 01/30/21 17:00 01/30/21 17:10 Warfarin (*Pbkc) 3 Mg Tablet PO
[2021-01-31] MEDS: ENOXAPARIN 30 MG/0.3 ML SYRINGE SUB-Q ×2 (08:29→21:00)
[2021-01-31] MEDS: FAMOTIDINE 20 MG TABLET PO ×2 (08:30→21:00)
[2021-01-31] MEDS: CHOLECALCIFEROL 1,000 UNITS TABLET 1000 UNITS PO (08:30)
[2021-01-31] MEDS: CELECOXIB 100 MG CAPSULE PO (08:30)
[2021-01-31] MEDS: carvediloL 12.5 MG TABLET PO ×2 (08:31→21:00)
[2021-01-31] MEDS: polyethylene glycoL 3350 17 GM POWD.PACK PO (08:40)
[2021-01-31] MEDS: MAGNESIUM OXIDE 200 MG TABLET PO (08:45)
[2021-01-31] MEDS: SENNA/DOCUSATE SODIUM TABLET 2 TAB PO ×2 (08:46→21:00)
--- NOTE | 2021-01-31 15:34 | PM.IMPN ---
Progress Note: A&P Assessment and Plan (1) Pre-syncope: Code(s): R55 - Syncope and collapse Status: Acute Assessment and Plan: Patietn with pre-syncopal symptoms when being up yesterday. Could be a transient drop in BP. Symptoms resolved with fluids and returning to bed. [place] related to narcotics/recent surgery/anaesthesia. Symptoms resolved. (2) Rash: Code(s): R21 - Rash and other nonspecific skin eruption Status: Acute Assessment and Plan: Rash essentially resolved. Possibly a drug reaction. Decadron x1 given 01/30. Vanco completed. WBC elevated today but felt related to steroids. Continue to follow (3) Arthritis of right knee: Code(s): M17.11 - Unilateral primary osteoarthritis, right knee Status: Acute Assessment and Plan: Rt knee arthritis now postoperative day 2 from a right total knee arthroplasty. Continue wound care, pain control and DVT prophylaxis per orthopedics. Continue PT/OT. (4) Hypertension: Code(s): I10 - Essential (primary) hypertension Status: Acute Assessment and Plan: Patient's blood pressure was reviewed on 01/31. BP stable. Continue Coreg. (5) Chronic anticoagulation: Code(s): Z79.01 - manager intermediate (current) use of anticoagulants Status: Chronic Assessment and Plan: Patient on prophylactic Lovenox bridging to Coumadin. INR 1.2. Continue daily INR. (6) Factor 5 Leiden mutation, heterozygous: Code(s): D68.51 - Activated protein C resistance Status: Acute Assessment and Plan: On half-way anticoagulation. 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 No further dizziness. No CP or SOB. She has been up walking in the halls with therapy. She is eating well without n/v. Pain better controlled and no higher than 01/25. Exam Narrative: Exam Narrative: AF 97.6 150/52 63 14 97% ra Gen - NARD lying semi-recumbent in bed Chest - CTA bilaterally, nml RR CV - RRR S1/S2. Tele showing no significant dysrhythmias Abd - Soft, NT/ND, Positive BS Ext - right knee dressing is clean, dry and intact. trace pedal edema Neuro - Alert and oriented. Nonfocal exam. Psych - Nml mood and affect Skin - Warm and dry, rash resolved Objective Data Vital Signs Vital Signs: Vital Signs - 24 hr 01/30/21 16:00 01/30/21 20:00 01/30/21 20:17 Temperature Pulse Rate 72 81 78 Respiratory Rate Blood Pressure Pulse Oximetry 01/30/21 20:35 01/30/21 20:38 01/31/21 00:00 Temperature 96.8 F L Pulse Rate 77 66 Respiratory Rate 18 Blood Pressure 133/51 L Pulse Oximetry 95 93 01/31/21 00:02 01/31/21 04:00 01/31/21 04:36 Temperature 96.7 F L 97.7 F Pulse Rate 66 51 L 63 Respiratory Rate 16 16 Blood Pressure 140/48 L 143/57 H Pulse Oximetry 96 97 01/31/21 08:00 01/31/21 08:31 01/31/21 14:00 Temperature 97.6 F Pulse Rate 64 62 63 Respiratory Rate 14 Blood Pressure 150/52 H Pulse Oximetry 97 Intake/Output Intake/Output: Intake & Output 01/28/21 01/29/21 01/30/21 01/31/21 23:59 23:59 23:59 23:59 Intake Total 8783 276 5525 Output Total 90 800 550 Balance 1250 40 2030 Meds/Results Medications: Active Medications Generic Name Dose Route Start Last Admin Trade Name Freq PRN Reason Stop Dose Admin Acetaminophen 1,000 mg 01/29/21 18:00 01/31/21 13:34 Acetaminophen 500 Mg Tablet PO 1,000 mg Q6HR EMILY Administration Bisacodyl 10 mg 01/29/21 15:12 Bisacodyl 10 Mg Suppository RECTAL DAILY PRN Constipation Carvedilol 12.5 mg 01/29/21 21:00 01/31/21 08:31 Carvedilol 12.5 Mg Tablet PO 12.5 mg Q12HR EMILY Administration Celecoxib 100 mg 01/30/21 17:22 01/31/21 08:30 Celecoxib 100 Mg Cap
[2021-01-31] MEDS: WARFARIN (*PBKC) 3 MG TABLET 6 MG PO (17:27)
[2021-02-01] VITALS: PULSE 56
[2021-02-01] MEDS: oxyCODONE HCL (*CRX) 2.5 MG TAB IR PO ×4 (00:30→13:58)
[2021-02-01] MEDS: CEPHALEXIN 500 MG CAPSULE PO ×3 (00:30→13:58)
[2021-02-01] MEDS: ACETAMINOPHEN 500 MG TABLET 1000 MG PO ×3 (00:30→13:58)
[2021-02-01 04:00] VITALS: PULSE 60
[2021-02-01 04:46] VITALS: BP 147/45; PULSE 68; RESP 18; TEMP 36.7; O2SAT 96
[2021-02-01 05:33] LABS: Hematocrit 27.2 % (37.0-47.0); Hemoglobin 8.8 g/dL (12.0-15.0); Mean Corpuscular HGB Conc 32.4 g/dl (32-36); Mean Corpuscular Hemoglobin 29.6 pg (26-34); Mean Corpuscular Volume 91.6 fl (80-100); Platelet Count Result 134 k/mm3 (150-375); Red Blood Count 2.97 M/mm3 (4.2-5.4); Red Cell Distribution Width 14.2 % (11.5-14.5); White Blood Count 8.7 K/mm3 (4.5-10.0)
[2021-02-01 05:59] LABS: INR 1.5
--- NOTE | 2021-02-01 06:59 | PM.PNORT ---
Progress Note: A&P Additional Plan Patient is postoperative day 3. After revision right total knee arthroplasty. Yesterday she walked the halls in morning and afternoon therapy and did very well. She feels well. She denies any lightheadedness. Her pain is very well controlled and she is weight-bearing as tolerated on the right knee and it feels trustworthy to her period she had had some redness on her lower back while she was getting the vancomycin 2 days ago. She has no sign of any rash anywhere in her body at this time. I suspect that was due to her lying on her back for long. The time possibly with a contribution of the vancomycin but there is no evidence that she has had any sort of allergic reaction to any antibiotics and she has no rash whatsoever at this time. We are using Keflex for 12 days for prophylaxis because she is a revision. Her hemoglobin today is 8.8. This represents acute blood loss anemia. This would be what I would expect her to be based on her intraoperative and expected postoperative blood loss. I think she is you euvolemic at this time. Her pressure this morning was 147 systolic heart rate 68. She denies feeling woozy or lightheaded. Her albumin is a little bit low and I have ordered protein supplement for her. Her INR is 1.5 insert is starting to go up and we will put her on the 4 mg nightly home dose that she is used to being on. She will continue to be on the Lovenox until her INR is 1.8 or above. She was subtherapeutic on the 4 mg preoperatively but now that she will be on the Tylenol around the clock, the 4 mg may be appropriate for a therapeutic dose. She is not really having any discomfort now so we will discontinue the Celebrex. She will have home health go out tomorrow and draw an INR in the will call that to us and we will obtain INRs as needed until she is therapeutic. And a couple of weeks we should be able to start outpatient physical therapy but will have home health therapy for now. She will also need a CBC checked to make sure she does not develop thrombocytopenia due to the Lovenox. This will also allow acid opportunity to make sure that her hemoglobin is stable. Subjective Subjective Date/Time Seen: 02/01/21 06:59 Objective Data Vital Signs Vital Signs: Vital Signs - 24 hr 01/31/21 08:00 06/16/21 08:31 01/31/21 12:00 Temperature Pulse Rate 64 62 63 Respiratory Rate Blood Pressure Pulse Oximetry 01/31/21 14:00 01/31/21 16:00 01/31/21 20:00 Temperature 36.4 C Pulse Rate 63 62 82 Respiratory Rate 14 Blood Pressure 150/52 H Pulse Oximetry 97 01/31/21 21:00 01/31/21 21:36 01/31/21 21:47 Temperature 36.4 C L Pulse Rate 66 61 Respiratory Rate 18 Blood Pressure 118/51 L Pulse Oximetry 100 96 02/01/21 00:00 02/01/21 04:00 02/01/21 04:46 Temperature 36.7 C Pulse Rate 56 L 60 68 Respiratory Rate 18 Blood Pressure 147/45 H Pulse Oximetry 96 Intake/Output Intake/Output: Intake & Output 01/29/21 01/30/21 01/31/21 02/01/21 23:59 23:59 23:59 23:59 Intake Total 1084 899 2538 150 Output Total 90 800 1350 250 Balance 1250 40 1970 -100 Meds/Results Medications: Active Medications Generic Name Dose Route Start Last Admin Trade Name Freq PRN Reason Stop Dose Admin Acetaminophen 1,000 mg 01/29/21 18:00 02/01/21 06:01 Acetaminophen 500 Mg Tablet PO 1,000 mg Q6HR EMILY Administration Bisacodyl 10 mg 01/29/21 15:12 Bisacodyl 10 Mg Suppository RECTAL DAILY PRN Constipation Carvedilol 12.5 mg 01/29/21 21:00 01/31/21 21:00 Carvedilol 12.5 Mg Tablet PO 12.5 mg Q12HR EMILY Administration Cephalexin HCl 500 mg 01/30/21 12:00 02/01/21 06:01 Cephalexin 500 Mg Capsule PO 500 mg Q6HR EMILY Administration Diphenhydramine HCl 25 mg 01/29/21 15:12 Diphenhydramine Hcl Inj 50 Mg/Ml Vial IV PUSH Q6H PRN Itching Enoxaparin Sodium 30 mg 01/29/21 21:00 01/31/21 21:00 Enoxa
--- NOTE | 2021-02-01 07:29 | PM.PNORT ---
Progress Note: A&P Additional Plan POD 3 alert pain is well controlled hgb-stable, pt is feeling much better, INR -1.5 today ,she is on home dose of coumadin,still on bridging lovenox, wd-dry NVI, doing well with PT, no issues with BP with standing or ambulation, plan to set up home health to monitor INRs , will have C also work with her PT. plan to send home today Subjective Subjective Date/Time Seen: 02/01/21 07:29 Objective Data Vital Signs Vital Signs: Vital Signs - 24 hr 01/31/21 08:00 01/31/21 08:31 01/31/21 12:00 Temperature Pulse Rate 64 62 63 Respiratory Rate Blood Pressure Pulse Oximetry 01/31/21 14:00 01/31/21 16:00 01/31/21 20:00 Temperature 36.4 C Pulse Rate 63 62 82 Respiratory Rate 14 Blood Pressure 150/52 H Pulse Oximetry 97 01/31/21 21:00 01/31/21 21:36 01/31/21 21:47 Temperature 36.4 C L Pulse Rate 66 61 Respiratory Rate 18 Blood Pressure 118/51 L Pulse Oximetry 100 96 02/01/21 00:00 02/01/21 04:00 02/01/21 04:46 Temperature 36.7 C Pulse Rate 56 L 60 68 Respiratory Rate 18 Blood Pressure 147/45 H Pulse Oximetry 96 Intake/Output Intake/Output: Intake & Output 01/29/21 01/30/21 01/31/21 02/01/21 23:59 23:59 23:59 23:59 Intake Total 4164 335 0440 150 Output Total 90 800 1350 250 Balance 1250 40 1970 -100 Meds/Results Medications: Active Medications Generic Name Dose Route Start Last Admin Trade Name Freq PRN Reason Stop Dose Admin Acetaminophen 1,000 mg 01/29/21 18:00 02/01/21 06:01 Acetaminophen 500 Mg Tablet PO 1,000 mg Q6HR EMILY Administration Bisacodyl 10 mg 01/29/21 15:12 Bisacodyl 10 Mg Suppository RECTAL DAILY PRN Constipation Carvedilol 12.5 mg 01/29/21 21:00 01/31/21 21:00 Carvedilol 12.5 Mg Tablet PO 12.5 mg Q12HR EMILY Administration Cephalexin HCl 500 mg 01/30/21 12:00 02/01/21 06:01 Cephalexin 500 Mg Capsule PO 500 mg Q6HR EMILY Administration Diphenhydramine HCl 25 mg 01/29/21 15:12 Diphenhydramine Hcl Inj 50 Mg/Ml Vial IV PUSH Q6H PRN Itching Enoxaparin Sodium 30 mg 01/29/21 21:00 01/31/21 21:00 Enoxaparin 30 Mg/0.3 Ml Syringe SUB-Q 30 mg Q12HR EMILY Administration Famotidine 20 mg 01/29/21 21:00 01/31/21 21:00 Famotidine 20 Mg Tablet PO 20 mg Q12HR EMILY Administration Magnesium Oxide 200 mg 01/30/21 09:00 01/31/21 08:45 Magnesium Oxide 200 Mg Tablet PO 03/01/21 09:01 200 mg DAILY EMILY Administration Naloxone HCl 0.1 mg 01/29/21 15:12 Naloxone Hcl 0.4 Mg/Ml Vial IV PUSH Q2M PRN Opiate Reversal Ondansetron HCl 4 mg 01/29/21 15:12 01/30/21 08:22 Ondansetron Inj 4 Mg/2 Ml Vial IV PUSH 4 mg Q4H PRN Administration Nausea And Vomiting Oxycodone HCl 2.5 mg 01/30/21 11:53 01/30/21 17:10 Oxycodone Hcl (*Crx) 2.5 Mg Tab Ir PO 2.5 mg Q4H PRN Administration Pain Oxycodone HCl 2.5 mg 01/30/21 17:25 02/01/21 06:01 Oxycodone Hcl (*Crx) 2.5 Mg Tab Ir PO 2.5 mg Q4HR EMILY Administration Polyethylene Glycol 17 gm 01/30/21 09:00 01/31/21 08:40 Polyethylene Glycol 3350 17 Gm Powd.Pack PO 17 gm QAM EMILY Administration Senna/Docusate Sodium 2 tab 01/29/21 21:00 01/31/21 21:00 Senna/Docusate Sodium Tablet PO 2 tab Q12HR EMILY Administration Vitamin D 1,000 units 01/30/21 09:00 01/31/21 08:30 Cholecalciferol 1,000 Units Tablet PO 1,000 units DAILY EMILY Administration Warfarin Sodium 4 mg 02/01/21 17:00 Warfarin (*Pbkc) 4 Mg Tablet PO DAILY@1700 [facility] Radiology Results: ITS Impressions Knee X-Ray 01/29/21 13:46 IMPRESSION: 1. Recent right total knee arthroplasty. Labs Labs: Laboratory Results - last 24 hr 02/01/21 02/01/21 05:15 05:15 WBC 8.7 RBC 2.97 L Hgb 8.8 L Hct 27.2 L MCV 91.6 MCH 29.6 MCHC 32.4 RDW 14.2 Plt Count 134 L MPV 12.0 H PT 19.0 H INR 1.5
--- NOTE | 2021-02-01 07:42 | PM.DS ---
DS: Admitting Diagnosis Admitting Diagnosis Admitting Diagnosis: right knee DJD DS: Summary Hospital Course Hospital Course: episode of orthosatic hypotension POD 1, otherwise stable, Time Spent with Patient Time attestation: Total time spent providing and/or coordinating discharge services: 80-year-old female who underwent total knee arthroplasty on 01/29/2021. Underwent the procedure without any complications postop day 1 patient was having some orthostatic hypotension. She was treated with a bolus of fluid. She did have some improvement. She also started developing an increased amount of pain on postop day 1 which was not well controlled therefore she was kept overnight. She was started Celebrex and continued on her pain regimen of scheduled Tylenol as well as oxycodone 2.5 mg pain slowly improved to the point where it is tolerable. Postop day 2 she was still very slow with physical therapy and was not getting around well. Therefore determined to provide more day. She has gradually improved where she is getting up around moving well with therapy. Her pain is well controlled. Celebrex was stopped. She is on Lovenox bridging to her Coumadin, on date of discharge which is 02/01, her INR is 1.5. We will set up home therapy as well as home nursing to check on her INRs daily until she is therapeutic. Once she is therapeutic. Lovenox. She is also on 10 day course of p.o. Keflex postoperatively as well. Pain is well controlled with scheduled Tylenol as well as oxycodone 5.5 mg. She is also on Senokot MiraLax. On date of discharge her hemoglobin was 8.8 which has been stable, she is also a symptomatic from the anemia. Platelets are 134. Will also set up home health care to do physical therapy for her at home for the 1st 2 weeks and then hopefully will be able to outpatient therapy at that point. Patient was advised to keep leg elevated at home to prevent swelling. She does have a Mepilex dressing over the incision. Patient was advised any questions or concerns when she goes home she should call the office otherwise will see her appointment date. DS: Data Data Completed and Pending Labs on day of discharge: Labs from last 24 hours 02/01/21 02/01/21 05:15 05:15 WBC 8.7 RBC 2.97 L Hgb 8.8 L Hct 27.2 L MCV 91.6 MCH 29.6 MCHC 32.4 RDW 14.2 Plt Count 134 L MPV 12.0 H PT 19.0 H INR 1.5 Discharge Plan Discharge Attending physician on discharge: Josue Vaca Consulting providers: Yana Pearl Discharging Clinician: David Mac Anticipated Discharge Date/Time: 02/01/21 07:33 Patient Disposition: Home, Self-Care Activity: may shower Diet: as tolerated Wound Care Instructions: follow printed instructions Discharge Instructions: Take a protein supplement with meals as your protein level interbody is a little bit low. You can choose any boost or Ensure product that has extra protein according to your taste. Remember to avoid sitting in the chair except to eat and go to the bathroom during the next 2 weeks. Sitting in the chair will can have her leg below her heart and will cause swelling in her leg which will be concerning for blood clot and if swelling occurs she will have to go to the emergency room for a venous duplex ultrasound to rule out blood clot. Make sure that if the home health nurse draws an INR level, that shoe obtained instructions on whether to take the Coumadin that night and what exact dose to take as adjustments will likely be necessary during these next 2 weeks. Do not assume or guess what Coumadin dose to take. Change the dressing on the knee wound on Friday. You may shower and water can run off the dressing. JOSUE VACA M.D [facility] [address] [place] [id number] POST-OPERATIVE DISCHARGE INSTRUCTIONS TOTAL KNEE ARTHROPLASTY 1. When resting, lie on back with leg elevated above hear
[2021-02-01 08:00] VITALS: PULSE 71
[2021-02-01] MEDS: CHOLECALCIFEROL 1,000 UNITS TABLET 1000 UNITS PO (08:52)
[2021-02-01] MEDS: polyethylene glycoL 3350 17 GM POWD.PACK PO (08:52)
[2021-02-01] MEDS: SENNA/DOCUSATE SODIUM TABLET 2 TAB PO (08:52)
[2021-02-01] MEDS: MAGNESIUM OXIDE 200 MG TABLET PO (08:52)
[2021-02-01] MEDS: FAMOTIDINE 20 MG TABLET PO (08:52)
[2021-02-01 08:53] VITALS: PULSE 74
[2021-02-01] MEDS: carvediloL 12.5 MG TABLET PO (08:53)
[2021-02-01] MEDS: ENOXAPARIN 30 MG/0.3 ML SYRINGE SUB-Q (08:53)
[2021-02-01 12:00] VITALS: PULSE 86
--- NOTE | 2021-02-01 12:24 | PM.IMPN ---
Progress Note: A&P Assessment and Plan (1) Pre-syncope: Code(s): R55 - Syncope and collapse Status: Acute Assessment and Plan: Patietn with pre-syncopal symptoms when getting her up on POD#1. Could be a transient drop in BP. Symptoms resolved with fluids and returning to bed. [place] related to narcotics/recent surgery/anaesthesia. Symptoms resolved. (2) Rash: Code(s): R21 - Rash and other nonspecific skin eruption Status: Acute Assessment and Plan: Rash essentially resolved. Possibly a drug reaction. Decadron x1 given 01/30. Vanco completed. WBC was elevated today related to steroids. WBC normal now. Continue to follow (3) Arthritis of right knee: Code(s): M17.11 - Unilateral primary osteoarthritis, right knee Status: Acute Assessment and Plan: Rt knee arthritis now postoperative day 3 from a right total knee arthroplasty. Patietn recovering well from the surgery. Continue wound care, pain control and DVT prophylaxis per orthopedics. Continue PT/OT. (4) Hypertension: Code(s): I10 - Essential (primary) hypertension Status: Acute Assessment and Plan: Patient's blood pressure was reviewed on 02/01. BP stable. Continue Coreg. (5) Chronic anticoagulation: Code(s): Z79.01 - regional intermodal truck driver (current) use of anticoagulants Status: Chronic Assessment and Plan: Patient on prophylactic Lovenox bridging to Coumadin. INR 1.5 today. Continue daily INR while hospitalized. (6) Factor 5 Leiden mutation, heterozygous: Code(s): D68.51 - Activated protein C resistance Status: Acute Assessment and Plan: On watermelon inspector anticoagulation. As above Subjective Date/time seen: 02/01/21 12:24 Interval history: 80yo female with HTN and hx of DVT/PE on watermelon inspector Coumadin therapy due to Factor V Lieden deficiency here for elective right TKA that was performed on 01/29. Feels well. Walking in he halls. ain at most is 4/10. No CP, SOB or significnat cough. No problems overnight. Eating sorin. No further dizziness. Exam Narrative: Exam Narrative: AF 98.1 147/45 86 18 96% ra Gen - NARD lying semi-recumbent in bed Chest - few left basilar rhonchi o/w clear CV - RRR S1/S2. Tele showing PVCs and one episode of 3b run NSVT Abd - Soft, NT/ND, Positive BS Ext - right knee dressing is clean, dry and intact Psych - Nml mood and affect Skin - Warm and dry Objective Data Vital Signs Vital Signs: Vital Signs - 24 hr 01/31/21 14:00 01/31/21 16:00 01/31/21 20:00 Temperature 97.6 F Pulse Rate 63 62 82 Respiratory Rate 14 Blood Pressure 150/52 H Pulse Oximetry 97 01/31/21 21:00 01/31/21 21:36 01/31/21 21:47 Temperature 97.5 F L Pulse Rate 66 61 Respiratory Rate 18 Blood Pressure 118/51 L Pulse Oximetry 100 96 02/01/21 00:00 02/01/21 04:00 02/01/21 04:46 Temperature 98.1 F Pulse Rate 56 L 60 68 Respiratory Rate 18 Blood Pressure 147/45 H Pulse Oximetry 96 02/01/21 08:00 02/01/21 08:53 02/01/21 12:00 Temperature Pulse Rate 71 74 86 Respiratory Rate Blood Pressure Pulse Oximetry Intake/Output Intake/Output: Intake & Output 01/29/21 01/30/21 01/31/21 02/01/21 23:59 23:59 23:59 23:59 Intake Total 1354 405 9032 390 Output Total 90 800 1350 250 Balance 1250 40 1970 140 Meds/Results Medications: Active Medications Generic Name Dose Route Start Last Admin Trade Name Freq PRN Reason Stop Dose Admin Acetaminophen 1,000 mg 01/29/21 18:00 02/01/21 06:01 Acetaminophen 500 Mg Tablet PO 1,000 mg Q6HR EMILY Administration Bisacodyl 10 mg 01/29/21 15:12 Bisacodyl 10 Mg Suppository RECTAL DAILY PRN Constipation Carvedilol 12.5 mg 01/29/21 21:00 02/01/21 08:53 Carvedilol 12.5 Mg Tablet PO 12.5 mg Q12HR EMILY Administration Cephalexin HCl 500 mg 01/30/21 12:00 02/01/21 06:01 Cephalexin 500 Mg Capsu
== END 2021-02-01 14:24 | disposition home or self-care (01) ==
LOC: ANHSURGERY 02-13 14:07
PROVIDERS: Anesthesiology; Internal Medicine; Physician Assistant Surgical; Admitting Provider Orthopaedic Surgery; PCP Internal Medicine; Visit Provider Orthopaedic Surgery
PROC: (CPT 27487; principal; 2021-01-29 07:30)
DX: M17.11 Unilateral primary osteoarthritis, right knee (principal); T84.092A Other mechanical complication of internal right knee prosthesis, initial encounter; Z96.653 Presence of artificial knee joint, bilateral; D68.2 Hereditary deficiency of other clotting factors; E78.5 Hyperlipidemia, unspecified; E66.9 Obesity, unspecified; I95.81 Postprocedural hypotension; I10 Essential (primary) hypertension; Z68.34 Body mass index [BMI] 34.0-34.9, adult; Z79.01 Long term (current) use of anticoagulants; Z86.718 Personal history of other venous thrombosis and embolism
CPT/HCPCS: 27487; 36415; 73560; 80048; 80053; 80307; 82040; 82948; 83036; 83735; 85014; 85018; 85025; 85027; 85049; 85610; 85730; 86850; 86900; 86901; 87070; 97110; 97116; 97161; 97165; 97530; A9270; C1713; C1776; C9803; G0378; J0171; J0690; J1100; J1170; J1650; J2270; J2405; J2704; J2795; J3010; J3370; J7042; J7050; J7120; U0003; U0005

== ENCOUNTER 2021-02-02 11:01 | Outpatient (RCR) | payer MEDICARE, SELFPAY ==
--- NOTE | 2021-02-02 12:45 | PTOPEVAL ---
Thank you for referring Reva Pan to [facility].? The patient is scheduled to be seen for therapy? ____x/week for ___ weeks. Please review, sign, date and return this plan of care JULIÁN. I agree with and certify that the following plan of care is medically necessary. Referring Physician Date Admitting Provider: Attending Provider: Josue Vaca MD Referring Provider: *PT Outpatient Evaluation Start: 02/02/21 11:05 Freq: Status: Active Protocol: Document 02/02/21 11:00 [facility] (Rec: 02/02/21 12:03 [facility] [id number]) Therapy Assessment Status Assessment Status Assessment Status Evaluation Outpatient Past Medical History Neurological History Hx Other Neurological Disorders Yes: BRAINSTEM DECOMPRESSION MANY YEARS AGO Cardiovascular History Hx Deep Vein Thrombosis Yes: DVT RT LOWER LEG X 2 2000 Hx Other Cardiac Disorders Yes: DR JAYASHREE KRUEGER DONE ON [employer]ART[employer] [employer] 3XWK AGE 1 Respiratory History Hx Respiratory Disorders No Significant History Gastrointestinal History Hx Gastrointestinal Disorders No Significant History Genitourinary History Hx Other Genitourinary Disorders Yes: URINARY STRESS INCONTINENCE Musculoskeletal History Hx Arthritis Yes: GENERALIZED Hx Crutches or Walker Use Yes: WALKER Query Text:If Yes, Enter Crutches, Walker, or Both in the Comment Hx Joint Replacement Yes: 11/17/17 [facility], RT PARTIAL KNEE REPLACED Hx Spinal Surgery Yes: LAMINECTOMY L3-L4 2019 [facility] Hx Other Musculoskeletal Disorders Yes: OA RT KNEE Hematological History Hx Other Hematological Disorders Yes: FACTOR 5 LEIDEN Endocrine History Hx Other Endocrine Disorders Yes: GOITER REMOVED HEENT History Hx Cataracts Yes: BILAT REMOVED Hx Tonsillectomy Yes: A CHILD Hx Dental Problems Yes: UPPER AND LOWER DENTURES Hx Other HEENT Disorders Yes: WEARS GLASSES Integumentary History Hx Skin Disorders No Significant History Reproductive History Hx Hysterectomy Yes Psychosocial History Hx Other Psychiatric Disorders Yes: SEVERE CLAUSTROPHOBIC Pain History Has Past Pain Affected Your Daily Life Yes: RT KNEE Anesthesia History Hx Anesthesia Reactions No Significant History Evaluation Information Problem Diagnosis R TKA revision Onset 01/29/21 Additional Evaluation Detail LEFS= 86% functional disability Subjective Information Reva Viviane is an 80 Query Text:As Reported By Patient/ year female who reports to the Family c
--- NOTE | 2021-02-07 10:30 | PCPTNOTE ---
Mrs. Pan has attended a total of 2 outpatient treatment sessions. Thus far treatment has consisted of: -quad sets x15 -SLR x 10 (requires assistance at LE to raise leg; ext lag noted -SAQ x 15 -heel slide -heel prop x 10 min -knee flex PROM x5min -ambulation x200ft using wheeled walker cga x 1 -Sit to stand transfer x3 min-mod A Treatment ends with vasopneumatic compression x 15 min post treatment. Patient presents with 2-114 degrees of AAROM right knee this date. Thank you for the referral of this patient and please contact me if there are any questions or concerns regarding the patient's rehab. Pamela Guerrier POSTPARTUM NURSE
--- NOTE | 2021-04-23 16:05 | PCPTNOTE ---
patient has not been to therapy in over 2 months. as of this date, she will be dc'd from skilled PT services and all progress towards goals will be taken from her most recent evaluation/note. YADIRA
== END 2021-02-14 09:02 | disposition home or self-care (01) ==
LOC: CHSPT 11:01
PROVIDERS: PCP Internal Medicine; Visit Provider Orthopaedic Surgery
DX: Z96.651 Presence of right artificial knee joint (principal)
CPT/HCPCS: 29581; 97016; 97110; 97161

== ENCOUNTER 2021-03-12 15:14 | Outpatient (CLI) | payer MEDICARE, SELFPAY ==
--- NOTE | ~2021-03-12 | US_ITS ---
EXAMINATION: US venous doppler LE RT DATE: 03/12/2021 16:14 INDICATION: Right lower limb swelling TECHNIQUE: Page scale images without and with compression and Doppler images of the right lower extre mity veins were obtained. COMPARISON: 12/11/2020 FINDINGS: The posterior tibial and peroneal veins are not well demonstrated. The right common femoral vein, profunda femoral vein, femoral vein, popliteal vein, and greater saphenous vein are patent. IMPRESSION: 1. Visualized lower extremity veins are patent. No evidence of deep venous thrombosis. Posterior tibi al and peroneal veins not well demonstrated. Reviewed, dictated and finalized at location A. IMPRESSION: 1. Visualized lower extremity veins are patent. No evidence of deep venous thro mbosis. Posterior tibial and peroneal veins not well demonstrated.
== END 2021-03-12 15:15 | disposition home or self-care (01) ==
PROVIDERS: PCP Internal Medicine; Visit Provider Orthopaedic Surgery
DX: M79.89 Other specified soft tissue disorders (principal)
CPT/HCPCS: 93971

== ENCOUNTER 2021-05-15 11:22 | Outpatient (CLI) | payer MEDICARE, SELFPAY ==
--- NOTE | 2021-05-15 11:45 | ECG_ITS ---
Measurements Intervals [place] Rate: 55 P: -10 GA: 160 QRS: 89 QRSD: 139 T: -80 QT: 459 QTc: 443 Interpretive Statements SINUS BRADYCARDIA LEFT BUNDLE BRANCH BLOCK BASELINE ARTIFACT- II, III, AVF ABNORMAL ECG Electronically Signed On 05-15-2021 12:19:26 CDT by Soy Brown D.O.
== END 2021-05-15 11:23 | disposition home or self-care (01) ==
LOC: CHSCARD 11:25
PROVIDERS: PCP Internal Medicine; Visit Provider Neurological Surgery
DX: Z01.818 Encounter for other preprocedural examination (principal)
CPT/HCPCS: 93005

== ENCOUNTER 2021-05-19 07:16 | Outpatient (CLI) | payer MEDICARE, SELFPAY ==
[2021-05-19 08:53] LABS: SARS-CoV-2 RNA PCR Negative (Negative)
== END 2021-05-19 07:17 | disposition home or self-care (01) ==
LOC: CHSLAB 07:19
PROVIDERS: PCP Internal Medicine; Visit Provider Neurological Surgery
DX: Z01.818 Encounter for other preprocedural examination (principal); Z20.822 Contact with and (suspected) exposure to COVID-19
CPT/HCPCS: C9803; U0003; U0005

== ENCOUNTER 2022-02-06 12:27 | Outpatient (CLI) | payer MEDICARE, SELFPAY ==
[2022-02-06 13:00] LABS: CRP < 0.5 mg/dL (0.0-0.9)
[2022-02-06 13:49] LABS: Erythrocyte Sedimentation Rate 35 mm/hr (0-20)
== END 2022-02-06 12:28 | disposition home or self-care (01) ==
LOC: CHSLAB 12:30
PROVIDERS: PCP Internal Medicine; Visit Provider Orthopaedic Surgery
DX: M25.561 Pain in right knee (principal)
CPT/HCPCS: 36415; 85652; 86140

== ENCOUNTER 2022-02-13 12:16 | Outpatient (NON) | payer MEDICARE, SELFPAY ==
[2022-02-13 13:25] LABS: Source Synovial Fluid Synovial fluid
[2022-02-13 13:26] LABS: Appearance Synovial Fluid Hazy (Clear); Color Synovial Fluid Yellow (Colorless); Nucleated Cell Synovial Fluid 209 /uL (0-200); RBC Synovial Fluid 1828 /uL (0-0)
[2022-02-13 13:31] LABS: Lymphocytes Synovial Fluid 93 %; Monocytes Synovial Fluid 7 %
[2022-02-13 13:37] LABS: Crystals Synovial Fluid None Seen (None Seen)
== END 2022-02-13 12:17 | disposition home or self-care (01) ==
PROVIDERS: PCP Internal Medicine; Visit Provider Orthopaedic Surgery
DX: M25.561 Pain in right knee (principal); Z96.651 Presence of right artificial knee joint
CPT/HCPCS: 87070; 87075; 87205; 89051; 89060

== ENCOUNTER 2022-02-27 07:54 | Outpatient (CLI) | payer MEDICARE, SELFPAY ==
[2022-02-27 08:44] LABS: INR 1.9; Prothrombin Time 20.8 Seconds (11.1-14.7)
[2022-02-27 08:45] LABS: Partial Thromboplastin Time 33.2 SECONDS (22.3-36.8)
== END 2022-02-27 07:55 | disposition home or self-care (01) ==
LOC: ANHSURGERY 08:00
PROVIDERS: Anesthesiology; PCP Internal Medicine; Visit Provider Orthopaedic Surgery
DX: Z01.812 Encounter for preprocedural laboratory examination (principal); Z51.81 Encounter for therapeutic drug level monitoring; Z79.01 Long term (current) use of anticoagulants
CPT/HCPCS: 36415; 85610; 85730; 87070; 87147; 87181; 87186

== ENCOUNTER 2022-03-01 00:47 | Day surgery (SDC) | payer MEDICARE, SELFPAY ==
[2022-02-26 09:52] VITALS: BMI 30.5
--- NOTE | 2022-02-26 10:11 | PC.NURSE ---
Report to the Outpatient Waiting Room, entrance under the green pavilion located off [facility], at time _1000_ on date _03/01/22_. OR Time: _1200_. - You and your visitor will be asked a series of questions to screen for COVID 19 for your protection. - Only one visitor is allowed at this time. - The patient visitor is requested to leave or wait in car when not with patient. - A mask is required within the hospital. Patients may have clear liquids (water, carbonated beverages, clear teas, apple juice) until 3 hours prior to surgery (0900 AM) with a maximum of 20 ounces. - No food from midnight until time of surgery Take the following medications with a SIP of water the morning of surgery: _CARVEDILOL, PAIN PILL IF NEEDED_ Medications to discontinue per physician _PT STATES LAST DOSE OF WARFARIN, VITAMINS WAS 02/24/22_ Please no make-up, nail amharic, hairspray, perfume, deodorant, or body powder the day of surgery. No jewelry (including any body piercings) or valuables the day of surgery, leave them at home. Please take a shower or bath the night before, or the morning of, surgery with an antibacterial soap. Wear comfortable, loose fitting clothing. - Jewelry must be removed prior to entering the operating room. Rings and piercings that are not removed may be cut off. - The hospital will not accept responsibility for valuables. - Please leave all valuables, including medications, at home the day of surgery. If you are going home after surgery, a licensed company driver must drive you home. - NO public transportation without another adult. - We recommend that an adult stay with you for 24 hours following discharge. - We also recommend that you do not drive, make important decision, drink alcoholic beverages, or take any drugs that were not prescribed by your health care provider for at least 24 hours after your discharge time. Follow any additional instructions given to you from your surgeon. If you or anyone in your household have experienced Covid symptoms in the past week, please notify your surgeon or the nurse liaison at the phone number below for possible testing. Telephone instructions given to ___PT and asked if any additional questions and then verbalized understanding. Patient advised to call surgeon office or pre surgery nurse liaison [phone] if any additional questions.
--- NOTE | 2022-02-27 12:02 | PM.IMHP ---
H&P: HPI History of Present Illness Date/Time: 02/27/22 12:02 Chief Complaint: Loose screw status post revision right total knee arthroplasty. Narrative: 81-year-old female presents today for removal of the screw that is in right knee. She underwent revision right total knee arthroplasty from failed partial knee replacement to constrained total knee replacement approximately 1 year ago. She did well with recovery. She has been having some symptoms in the knee pain mostly in the anterior inferior aspect of the knee. She was seen in the office at her 1 year anniversary on 02/06. X-rays at that time showed a screw that is used to hold the stem to the femoral component was inside the joint. The femoral stem as well as the femoral component both appear to be well fixated and no lucencies in cement. It was determined from [employer] that this screw is not needed at this point as long as there is no lucencies around the femoral component and the donna. She presents today for removal of the screw. 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 Deep venous thrombosis Factor 5 Leiden mutation, heterozygous Hypertension Stress incontinence Surgical History Surgical History History of bilateral cataract extraction History of hysterectomy (1978) History of left mastoidectomy History of lumbar laminectomy (06/05/20) L3-L4, at [facility]. History of partial thyroidectomy (1980) Thyroid goiter removed. 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 Her daughter lives at home with her. They have some cats and dogs in her daughter runs a bird rescue and they have several parrots and cockatiels at this time. 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 She is a lifelong nonsmoker. No alcohol or illicit substance use. She designates her Adrianne Perear as her surrogate decision maker and she wishes to be a full code. Smoking status: Never smoker Second hand tobacco smoke exposure: No Alcohol intake: never Substance use: never Substance use type: does not use Additional living arrangements comments: PT CURRENTLY DAUGHTER (ADRIANNE) DAUGHTER LIVING WITH PT, BUT MOVEING 2 HOUSES DOWN IN A COUPLE OF DAYS Sexual Orientation (if Verbalized by the Patient): . Spiritual care concerns: No Meds Home Medications and Allergies Home Medications Medication Instructions Recorded Confirmed Type warfarin 4 mg tablet 4 mg PO DAILY 08/17/20 02/26/22 History calcium carb-ergocalciferol (vit 1 tablet PO DAILY 01/11/21 02/26/22 History D2) 600 mg calcium-200 unit tablet cholecalciferol (vitamin D3) 100 100 mcg PO DAILY 01/11/21 02/26/22 History mcg (4,000 unit) capsule carvedilol 6.25 mg tablet 12.5 mg PO BID 01/29/21 02/26/22 History hydrocodone 5 mg-acetaminophen 325 1 tablet Q4H PRN Pain 02/26/22 02/26/22 History mg tablet Allergies Allergy/AdvReac Type Severity Reaction Status Date / Time cyclobenzaprine AdvReac Hallucinati Verified 02/26/22 09:47 ng Exam Narrative: 81-year-old female alert pleasant. Her right knee has range of motion from 0
--- NOTE | 2022-02-28 08:26 | WPDANESEPPF ---
Anes - Initial Pre Proc Eval Procedure: Operation Date: 03/01/22 12:00 Proposed Procedures p Removal Screw Right Knee - Josue Vaca MD Date/Time: 02/28/22 08:26 Surgeon: Josue Vaca MD Pre Op Diagnosis: Loose Screw Right Knee & Patient Data Age: 81 Gender: F Height: 1.65 m Weight: 83.18 kg Allergies Allergy/AdvReac Type Severity Reaction Status Date / Time cyclobenzaprine AdvReac Mild Hallucinati Verified 03/01/22 10:46 ng Home Medications Medication Instructions Recorded Confirmed Type warfarin 4 mg tablet 4 mg PO DAILY 08/17/20 02/26/22 History calcium carb-ergocalciferol (vit 1 tablet PO DAILY 01/11/21 02/26/22 History D2) 600 mg calcium-200 unit tablet cholecalciferol (vitamin D3) 100 100 mcg PO DAILY 01/11/21 02/26/22 History mcg (4,000 unit) capsule carvedilol 6.25 mg tablet 12.5 mg PO BID 01/29/21 02/26/22 History hydrocodone 5 mg-acetaminophen 325 1 tablet Q4H PRN Pain 02/26/22 03/01/22 History mg tablet Other studies: Admit Date: ? ? 01/09/2021 Summary ? 1. Complete two-dimensional, color flow and Doppler transthoracic echocardiogram is performed. ? 2. Left ventricular chamber dimension is normal. ? 3. Left ventricular systolic function is normal, estimated at 55-60%. ? 4. There is mildly increased left ventricular wall thickness. ? 5. Left ventricular septal wall motion is abnormal with septal motion related to bundle branch block. ? 6. The left ventricular diastolic function is grade I diastolic dysfunction. ? 7. E/e' 23 is elevated. ? 8. Global longitudinal strain is normal at -17.7%. ? 9. Left atrial chamber dimension is mildly enlarged. ? 10. There is trace aortic valve regurgitation. ? 11. The mitral valve has moderately calcified annulus. ? 12. There is mild mitral valve regurgitation. ? 13. There is mild tricuspid valve regurgitation. ? 14. Mild pulmonary hypertension, estimated pulmonary arterial systolic pressure is 43 mmHg. ? 15. There is trace pulmonic regurgitation. Patient hx anesthesia problems: none Family hx anesthesia problems: none Results Review: All pre-operative results and documents have been reviewed as part of the pre-operative evaluation. 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 Deep venous thrombosis Factor 5 Leiden mutation, heterozygous Hypertension Stress incontinence Surgical History Surgical History History of bilateral cataract extraction History of hysterectomy (1978) History of left mastoidectomy History of lumbar laminectomy (06/05/20) L3-L4, at [facility]. History of partial thyroidectomy (1980) Thyroid goiter removed. 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 Her daughter lives at home with her. They have some cats and dogs in her daughter runs a bird rescue and they have several parrots and cockatiels at this time. 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 She is a lifelong nonsmoker. No alcohol or illicit substance use. She designates her Destinee Perear as her surrogate decision maker and she wishes to be a full code. Smoking status: Never smoker Second hand tobacco smoke exposure: No Alcohol intake: never Substance use: never Substan
[2022-03-01] VITALS (12 sets, daily range): BP systolic 128–191; BP diastolic 58–90; PULSE 56–90; RESP 12–21; TEMP 36.1–36.4; O2SAT 91–100
--- NOTE | ~2022-03-01 | XR_ITS ---
XR knee RT 2V DATE: 03/01/2022 15:38 INDICATION: Postoperative examination TECHNIQUE: Postoperative AP and lateral views COMPARISON: 03/01/2022 right knee FINDINGS: Status post right knee arthroplasty with patellar resurfacing. The screw projecting anterior to the right femoral articular prosthesis earlier today is no longer ev ident. There is diffuse prominent osteopenia. No fracture or dislocation, periosteal reaction or bone destru ction. IMPRESSION: Resolution of screw projecting anteriorly from distal femoral prosthesis since earlier to day Reviewed, dictated and finalized at location A. IMPRESSION: Resolution of screw projecting anteriorly from distal femoral prost hesis since earlier today
--- NOTE | ~2022-03-01 | XR_ITS ---
EXAMINATION: XR surgery orthopedic DATE: 03/01/2022 13:41 INDICATION: Screw removal at the right knee TECHNIQUE: 2 fluoroscopic images of the right knee were obtained during procedure performed by Dr. Anthony galvan. Radiologist was not present for the imaging or procedure. The amount of fluoroscopy time used during this procedure was 0.1 minutes. COMPARISON: Right knee radiographs dated 03/01/2022 FINDINGS: Right total knee arthroplasty. The screw previously partially visualized on the lateral projection is no evident in the frontal plane projecting over the intercondylar notch. This is not visualized on t he subsequent image and has likely been removed. No fracture or evident osteolysis in the visualized bones. IMPRESSION: 1. Fluoroscopy utilized for removal of a screw projecting over the region of the intercondylar notch with change of prior total knee arthroplasty. See procedure note for further detail. Reviewed, dictated and finalized at location B. IMPRESSION: 1. Fluoroscopy utilized for removal of a screw projecting over the region of th e intercondylar notch with change of prior total knee arthroplasty. See procedu re note for further detail.
--- NOTE | ~2022-03-01 | XR_ITS ---
EXAMINATION: XR knee RT 2V DATE: 03/01/2022 11:06 INDICATION: Preoperative evaluation for instrumentation removal at the right knee. TECHNIQUE: AP and crosstable lateral views of the right knee were obtained COMPARISON: 01/29/2021 FINDINGS: Again seen is a cemented revision right total knee arthroplasty which is in near-anatomic alignment. There is been prior patellar resurfacing. There is a new metallic screw projecting anterior to the ce ntral condylar portion of the femoral component. No fracture. Small enthesophyte at the proximal pole of the patella. Soft tissues are unremarkable. No right knee joint effusion. IMPRESSION: 1. New metallic screw seen on the lateral projection projecting anteriorly from the central condylar portion of the right total knee arthroplasty. Reviewed, dictated and finalized at location B.
[2022-03-01] MEDS: ACETAMINOPHEN 500 MG TABLET 1000 MG PO ×2 (10:51→17:35)
[2022-03-01] MEDS: LACTATED RINGERS 1,000 ML 30 ML IV CONT (11:19)
[2022-03-01] MEDS: KETOROLAC 15 MG/ML VIAL (*BKC) IV PUSH (11:22)
[2022-03-01 11:58] LABS: INR 1.3; Prothrombin Time 15.9 Seconds (11.1-14.7)
--- NOTE | 2022-03-01 12:09 | WPDHPUPDATE1 ---
History and Physical Update Update Date/Time: 03/01/22 12:09 History and Physical has been reviewed, including an updated exam of the patient. There are NO changes in the patient's condition.Xrays show screw unchanged in position. Risks, benefits, and alternatives have been discussed and questions answered. Patient agrees to proceed with procedure.
--- NOTE | 2022-03-01 12:20 | SUR.PREOP ---
1100 xrays right knee done
[2022-03-01] MEDS: ceFAZolin 2 GM/D5W 50 ML 2 GM/50 ML BAG IVPB (12:25)
[2022-03-01] MEDS: ceFAZolin SODIUM 1 GM VIAL IRRIGATION (13:05)
[2022-03-01] MEDS: fentaNYL CITRATE INJ (*CRX) 100 MCG/2 ML VIAL 25 MCG IV PUSH ×2 (14:01→14:15)
--- NOTE | 2022-03-01 14:01 | P.OP_ITS ---
Procedure Note - Detailed Date of Procedure 03/01/22 Pre-op Diagnosis Loose Screw Right Knee & Post-op Diagnosis Same Procedure Performed Percutaneous removal of femoral intramedullary donna set screw right knee Surgeon Josue Vaca MD French Edge Operator Aaliyah Larsen Anesthesia General Description of Procedure Patient was brought to the operating room and general LMA anesthesia administered and the right knee prepped draped usual fashion. She received weight based vancomycin 2 g of Ancef preoperatively. She did not receive TXA. SCDs were placed on the left leg. Limb was exsanguinated and tourniquet elevated to 300 mmHg. Fluoro was brought in and we localized the screw under fluoro which was directly posterior to the inferior pole of the patella. A 1 in longitudinal incision was made at the appropriate location of the previous incision. Arthrotomy was made at that location and a curved P on was inserted which was able to grab the head of the screw but could not successfully retrieve the screw. It rotated the screw to the degree that the threaded portion of the screw was directly under the incision which we could grab easily removing the screw without difficulty. The screw threads were inspected and there were worn on 2 sides. There was a little bit of metal oasis on the synovium in that area which was debrided with a needle-nose rongeur. I did not see any abnormality in the trochlea but there was some indentation type wear in about 4 mm diameter area in the center of the tibial polyethylene just anterior to the post. There was no wear in the post itself. The wound was thoroughly irrigated with Ancef solution. Tourniquet was released. Hemostasis was achieved. Bleeding was minimal. The 2 cm arthrotomy was closed with running 0 Vicryl on the small needle. Skin closed with 2 subcutaneous Vicryl 3-0 subcuticular Monocryl and glue EBL negligible. She was transferred postop recovery room in stable condition. The screw was sent to [facility] for cleaning and will be provided to the patient per her request.
[2022-03-01] MEDS: hydrALAZINE HCL 20 MG/ML VIAL 10 MG IV PUSH (14:30)
--- NOTE | 2022-03-01 15:32 | SUR.PHASEI ---
xray here for 2 view.
--- NOTE | 2022-03-01 15:49 | PC.NURSE ---
This patient, Reva Pan, was admitted to Medical Room 245-. Patient/family oriented to hospital policies and general routines including ID bracelet, bed and alarms, visiting hours, pain management, procedures, bathroom and other care routines, personal items, smoking policy, room service/diet, and visiting hours. Information on how to activate the Rapid Response Team has been discussed. Patient/Family are encouraged to report perceived risks to care and to ask questions if they do not understand what they are told or what they should do.
--- NOTE | 2022-03-01 16:31 | PM.IMCN ---
Assessment and Plan Assessment and plan (1) S/P right knee surgery: Code(s): Z98.890 - Other specified postprocedural states Status: Acute Assessment and Plan: - Management with pain control, antibiotics, ordering of PT and further needs regarding the knee per Orthopedics. (2) Factor 5 Leiden mutation, heterozygous: Code(s): D68.51 - Activated protein C resistance Status: Acute Assessment and Plan: - With significant hx of DVT. Will require anticoagulation. - Coumadin currently on hold by Ortho. - Agree with Ortho plans of Lovenox 30 mg SC BID currently as her risk is elevated. - Agree with concurrent SCD's in the post-operative setting. - Monitor for any bleeding and/or s/s of DVT especially in operative extremity. (3) Chronic anticoagulation: Code(s): Z79.01 - superintendent terminal (current) use of anticoagulants Status: Chronic Assessment and Plan: - Agree with Lovenox for current Anticoagulation as it is more easily reversed in the post-operative setting than Warfarin. - INR this AM is 1.3. She will need her Warfarin dose re-initiated prior to discharge with goal INR of 2-3. (4) Hypertension: Code(s): I10 - Essential (primary) hypertension Status: Acute Assessment and Plan: - BP is running on the higher side. - Agree with Re-initiatiation of her home dose of Carvedilol 12.5 mg po BID. - Monitor labs and VS. - PRN Hydralazine ordered with parameters of SBP>180 and DBP>90. HPI Data of Consult Consult date: 03/01/22 Requesting Physician: Josue Vaca MD Primary Care Provider: Sabas Moreira MD Consult Narrative Narrative: Reva Pan is a 81 year old female with significant past medical history of factor 5 laden deficiency, previous DVT, hypertension, stress incontinence, arthritis and chronic anti coagulopathy who hospitalist Service is signing on for medical management status post removal of right knee screw by Orthopedics today. One year ago patient had revision of a right total knee replacement it over time she began having increased knee pain prompting further evaluation that showed a screw that is normally used to hold the stem to the femoral component was now inside the joint. She was taken to the operating room today for removal of that screw. Surgical intervention was without complication according to operative notes and hospitalist Service is consulted again for management of chronic medical conditions. Patient has no acute complaints at this time. She reports that her pain is well controlled. There are no signs of acute bleeding. Labs prior to operating room today significant for INR 1.3 in the setting of her having factor 5 laden deficiency chronically managed with Coumadin. She has been ordered Lovenox 30 mg subQ q.12 hours for anticoagulation postoperatively. Prior to discharge she will need to have her Coumadin re-initiated with at least close to therapeutic INR. In addition we are consulted for patient's hypertension management. her home regimen consists of carvedilol 12.5 mg p.o. b.i.d. and as her BP is currently running on the higher end of the spectrum, we will continue this dose and monitor. Further management per Orthopedics. Hospitalist Medicine Service does appreciate you allowing us to participate in patient's care. 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 Deep venous thrombosis Factor 5 Leiden mutation, heterozygous Hypertension Stress incontinence Surgical History Surgical History History of bilateral cataract extraction History of hysterectomy (1978) History of left mastoidectomy History
[2022-03-01] MEDS: oxyCODONE HCL (*CRX) 2.5 MG TAB IR PO ×2 (17:36→20:21)
[2022-03-01] MEDS: SENNA/DOCUSATE SODIUM TABLET 2 TAB PO (17:36)
[2022-03-01] MEDS: carvediloL 12.5 MG TABLET PO (17:37)
[2022-03-01] MEDS: ENOXAPARIN 30 MG/0.3 ML SYRINGE SUB-Q (20:21)
[2022-03-02] MEDS: ACETAMINOPHEN 500 MG TABLET 1000 MG PO ×3 (00:38→11:31)
[2022-03-02] MEDS: oxyCODONE HCL (*CRX) 2.5 MG TAB IR PO ×3 (00:39→08:00)
[2022-03-02 01:35] VITALS: BP 133/48; PULSE 62; RESP 16; TEMP 36.2; O2SAT 94
[2022-03-02 05:16] LABS: Basophils Percent Auto 0.6 % (0.2-1.2); Eosinophils Percent Auto 0.1 % (0-4.4); Hematocrit 36.3 % (37.0-47.0); Hemoglobin 11.3 g/dL (12.0-15.0); Immature Granulocyte Absolute 0.03 K/mm3 (0.00-0.031); Immature Granulocyte Percent A 0.4 % (0-0.5); Lymphocytes Absolute Auto 0.66 K/mm3 (0.9-3.2); Lymphocytes Percent Auto 9.1 % (18.3-44.2); Mean Corpuscular HGB Conc 31.1 g/dl (32-36); Mean Corpuscular Volume 90.1 fl (80-100); Mean Platelet Volume 11.4 fl (7.4-10.4); Monocytes Absolute Auto 0.4 K/mm3 (0.1-0.6); Monocytes Percent Auto 5.4 % (2.6-8.5); Neutrophils Absolute Auto 6.1 K/mm3 (1.3-6.7); Neutrophils Percent Auto 84.4 % (45.5-73.1); Platelet Count Result 224 k/mm3 (150-375); Red Blood Count 4.03 M/mm3 (4.2-5.4); Red Cell Distribution Width 14.3 % (11.5-14.5); White Blood Count 7.2 K/mm3 (4.5-10.0)
[2022-03-02 05:25] LABS: INR 1.4; Prothrombin Time 16.4 Seconds (11.1-14.7)
[2022-03-02 05:33] LABS: Anion Gap 3 mmol/L (8-16); Blood Urea Nitrogen 17 mg/dL (7-17); Calcium 8.5 mg/dL (8.4-10.2); Carbon Dioxide 26 mmol/L (22-30); Chloride 107 mmol/L (98-107); Estimated CRCL calculation 65 ml/min; Estimated Glomerular Filt Rate > 60; Glucose 118 mg/dL (65-110); Potassium 3.6 mmol/L (3.4-5.0); Sodium 136 mmol/L (137-145)
[2022-03-02 05:41] VITALS: BP 139/47; PULSE 56; RESP 18; TEMP 36.3; O2SAT 97
[2022-03-02 07:58] VITALS: BP 158/60; PULSE 57; RESP 16; TEMP 36.2; O2SAT 97
[2022-03-02 08:00] VITALS: PULSE 60
[2022-03-02] MEDS: CHOLECALCIFEROL 1,000 UNITS TABLET 4000 UNITS PO (08:00)
[2022-03-02] MEDS: CELECOXIB 200 MG CAPSULE PO (08:00)
[2022-03-02] MEDS: carvediloL 12.5 MG TABLET PO (08:00)
[2022-03-02] MEDS: SENNA/DOCUSATE SODIUM TABLET 2 TAB PO (08:00)
[2022-03-02] MEDS: ENOXAPARIN 30 MG/0.3 ML SYRINGE SUB-Q (08:00)
--- NOTE | 2022-03-02 08:13 | PM.PNORT ---
Progress Note: A&P Assessment and Plan (1) S/P right knee surgery: Code(s): Z98.890 - Other specified postprocedural states Status: Acute Assessment and Plan: Patient underwent removal of a loose screw in her right knee yesterday afternoon in surgery. The screw was impinging on the inferior pole of the patella and she had been complaining of infrapatellar knee pain. We did not use any local anesthetic. She states that she had the best night sleep she has had a long time last night. She was able to allow the leg to go out all the way straight without discomfort and this would seem to land optimism to the hope that removal of that screw will indeed alleviate her chief complaint of the infrapatellar pain she was having. The loose screw's location was quite consistent with her location of pain. There is no bloody drainage on the dressing. She can remove that after 7 days and let it be open to the air. She received her 1st dose of Lovenox last night 30 mg subQ q.12 hours which we plan to continue until her INR is therapeutic at 2.0. One week before surgery her INR was 1.7 on [address] Marie was planning to increase her daily dose to 4.5 mg. She takes her Coumadin the morning. I am going to give her 7 mg this morning have her take 6 mg tomorrow morning and then 5 mg on Friday more and she will go to Dr. Moreira's office Friday to have an INR drawn. I would like her to continue on the Lovenox until her INR is 2 or greater and then stop the Lovenox. She does have a prescription for hydrocodone [place] 5/325 at home and will have her just use that for pain control on as-needed basis. Since her narcotic usage will not have changed and will hopefully be decreased compared to preoperatively, I am not going to prescribe additional stool softeners. She will receive a dose of Celebrex and then stop Celebrex. She is afebrile with stable vital signs and she has no complaints today and is cheerful. She has not been out of bed yet and we will make sure that she tolerates ambulation without difficulty prior to discharge hopefully later today. Subjective Subjective Date/Time Seen: 03/02/22 08:13 Objective Data Vital Signs Vital Signs: Vital Signs - 24 hr 03/01/22 10:34 03/01/22 13:44 03/01/22 14:00 Temperature 36.1 C L 36.3 C L Pulse Rate 60 61 57 L Respiratory Rate 16 21 H 14 Blood Pressure 170/86 H 167/74 H 189/90 H Pulse Oximetry 97 100 100 Oxygen Delivery Room Air Simple Face Mask Simple Face Mask Oxygen Flow Rate 10 10 03/01/22 14:15 03/01/22 14:30 03/01/22 14:45 Temperature Pulse Rate 56 L 60 68 Respiratory Rate 12 18 16 Blood Pressure 191/83 H 190/85 H 174/72 H Pulse Oximetry 100 100 94 Oxygen Delivery Simple Face Mask Room Air Room Air Oxygen Flow Rate 10 03/01/22 15:12 03/01/22 15:47 03/01/22 16:38 Temperature 36.3 C L 36.2 C L Pulse Rate 74 78 75 Respiratory Rate 18 14 14 Blood Pressure 171/87 H 156/74 H 151/73 H Pulse Oximetry 95 91 94 Oxygen Delivery Room Air Oxygen Flow Rate 03/01/22 17:37 03/01/22 18:19 03/01/22 21:24 Temperature 36.4 C L 36.3 C L Pulse Rate 90 87 68 Respiratory Rate 16 18 Blood Pressure 128/65 161/58 H Pulse Oximetry 93 95 Oxygen Delivery Oxygen Flow Rate 03/01/22 20:00 03/02/22 01:35 03/02/22 05:41 Temperature 36.2 C L 36.3 C L Pulse Rate 62 56 L Respiratory Rate 16 18 Blood Pressure 133/48 L 139/47 L Pulse Oximetry 94 97 Oxygen Delivery Room Air Oxygen Flow Rate 03/02/22 07:58 03/02/22 08:00 03/02/22 08:00 Temperature 36.2 C L Pulse Rate 57 L 60 Respiratory Rate 16 Blood Pressure 158/60 H Pulse Oximetry 97 Oxygen Delivery Room Air Oxygen Flow Rate Intake/Output Intake/Output: Intake & Output 02/27/22 02/28/22 03/01/22 03/02/22 23:59 23:59 23:59 23:59 Intake Total 890 850 Balance 890 850 Meds/Results Medications: Active Medications Generic Name Dose Route Start Last
--- NOTE | 2022-03-02 08:45 | PM.IMPN ---
Progress Note: A&P Assessment and Plan (1) S/P right knee surgery: Code(s): Z98.890 - Other specified postprocedural states Status: Acute Assessment and Plan: POD 1 Post-op care per ortho Pain medications: Oxycodone 2.5mg PO Q4H EMILY, Tylenol 1000mg PO Q6H EMILY, oxycodone 5mg Q4H PRN, Morphine 2mg IV Q1H PRN Cefazolin X3 bags, vanco x 2 bags Bowel: Miralax and Senna Ice pack DVT coumadin 5mg PO daily PT/OT POD 1 Post op care per ortho (2) Factor 5 Leiden mutation, heterozygous: Code(s): D68.51 - Activated protein C resistance Status: Acute Assessment and Plan: With significant hx of DVT. Will require anticoagulation. Coumadin restarted by ortho Appears they are giving her 7mg today 6mg tomorrow, and 5mg on Friday with a follow up with primary on Friday Agree with concurrent SCD's in the post-operative setting. Monitor for any bleeding and/or s/s of DVT especially in operative extremity (3) Chronic anticoagulation: Code(s): Z79.01 - intermediate (current) use of anticoagulants Status: Chronic Assessment and Plan: Warfarin restart Trend INR Therapeutic range being 2-3 (4) Hypertension: Code(s): I10 - Essential (primary) hypertension Status: Acute Assessment and Plan: BP currently 139/47 Carvedilol 12.5 mg po BID. Trend BP Adjust therapy as indicated Hold on hydralizine as some elevation will be related to pain Time Spent With Patient Time with patient: Greater than 35 minutes Subjective Date/time seen: 03/02/22 08:45 Interval history: 03/02/22 0845 patient seems to be doing okay today. She did stated that she has been very the and has not slept in like 6 months. She stated that she will cry sleep after this. She denies any pain, chest pain, shortness of breath, nausea, vomiting, diarrhea, constipation, weakness or fatigue. She does take warfarin gets her INR checked about monthly. She seems to be doing well from medical standpoint. INR is still low at 1.4 however she stated that she is going to see Dr. Moreira on Friday for further evaluation of that and her Coumadin has just been restarted. Consult date: 03/01/22 Reva Pan is a 81 year old female? with significant past medical history of factor 5 laden deficiency, previous DVT, hypertension, stress incontinence, arthritis and chronic anti coagulopathy who hospitalist Service is signing on for medical management? status post removal of right knee screw by Orthopedics today.? One year ago patient had revision of a right total knee replacement? it over time she began having increased knee pain prompting further evaluation that showed a screw that is normally used to hold the stem to the femoral component was now inside the joint.? She was taken to the operating room today for removal of that screw.? Surgical intervention was without complication according to operative notes and hospitalist Service is consulted again for management of chronic medical conditions. ? Patient has no acute complaints at this time.? She reports that her pain is well controlled.? There are no signs of acute bleeding.? Labs prior to operating room today significant for INR 1.3 in the setting of her having factor 5 laden deficiency chronically managed with Coumadin.? She has been ordered Lovenox 30 mg subQ q.12 hours for anticoagulation postoperatively.? Prior to discharge she will need to have her Coumadin re-initiated with at least close to therapeutic INR.? In addition we are consulted for patient's hypertension management.? her home regimen consists of carvedilol 12.5 mg p.o. b.i.d. and as her BP is currently running on the higher end of the spectrum, we will continue this dose and monitor. Further management per Orthopedics.? Hospitalist Medicine Service does appreciate you allowing us to participate in patient's care. Review of Systems Review of Systems: All
--- NOTE | 2022-03-02 08:46 | PM.DS ---
DS: Admitting Diagnosis Discharge Date 03/02/2022 Admitting Diagnosis Loose screw right knee, status post revision knee replacement DS: Discharge Diagnosis Discharge Diagnosis Plan Patient underwent percutaneous removal of loose right screw right knee yesterday afternoon without complication. She will have physical therapy today and if she tolerates this well she will be discharged home. She has factor 5 Leiden and so we have started her on Lovenox last night 30 mg q.12 hours and she will be maintained on this regimen until her INR is greater than or equal to 2.0. DS: Summary Hospital Course Hospital Course: Patient has had an uneventful hospital course. Her labs are stable vital signs have been stable she does have hypertension chronically. The pain that she noted before surgery anterior infrapatellar region of her right knee is gone this morning. Status at Discharge Cognitive/behavioral status at discharge: Good. The for Time Spent with Patient Time attestation: Total time spent providing and/or coordinating discharge services: DS: Data Data Completed and Pending Labs on day of discharge: Labs from last 24 hours 03/02/22 03/02/22 03/02/22 04:35 04:35 04:35 WBC 7.2 RBC 4.03 L Hgb 11.3 L Hct 36.3 L MCV 90.1 MCH 28.0 MCHC 31.1 L RDW 14.3 Plt Count 224 D MPV 11.4 H Immature Gran % (Auto) 0.4 Neut % (Auto) 84.4 H Lymph % (Auto) 9.1 L Kent % (Auto) 5.4 Eos % (Auto) 0.1 Baso % (Auto) 0.6 Lymph # (Auto) 0.66 L Kent # (Auto) 0.4 Eos # (Auto) 0.0 Baso # (Auto) 0.0 Abs Immat Gran (auto) 0.03 Absolute Neuts (auto) 6.1 Absolute Nucleated RBC 0.0 Nucleated RBC % 0.0 PT 16.4 H INR 1.4 Sodium 136 L Potassium 3.6 Chloride 107 Carbon Dioxide 26 Anion Gap 3 L BUN 17 Creatinine 0.60 L Estim Creat Clear Calc 65 Estimated GFR > 60 Glucose 118 H Calcium 8.5 03/01/22 11:34 WBC RBC Hgb Hct MCV MCH MCHC RDW Plt Count MPV Immature Gran % (Auto) Neut % (Auto) Lymph % (Auto) Kent % (Auto) Eos % (Auto) Baso % (Auto) Lymph # (Auto) Kent # (Auto) Eos # (Auto) Baso # (Auto) Abs Immat Gran (auto) Absolute Neuts (auto) Absolute Nucleated RBC Nucleated RBC % PT 15.9 H D INR 1.3 Sodium Potassium Chloride Carbon Dioxide Anion Gap BUN Creatinine Estim Creat Clear Calc Estimated GFR Glucose Calcium Discharge Plan Discharge Patient Disposition: Home, Self-Care Discharge Instructions: Remove dressing on 03/08/2020 to and after that, wound may be open to air. You may shower now. You are weight-bearing as tolerated with a walker as you have been. Work on range of motion of her knee as her comfort allows as you have done previously. You will take Lovenox 30 mg subQ every 12 hours until your INR is greater than or equal to 2.0 and then the Lovenox can be stopped. We have given you 7 mg of warfarin at 9:00 a.m. on 03/02/2022. On 03/03/2022 please take 6 mg of warfarin. We have given you 1 mg tablets so that you can take 6 X 1 mg tablets. On Friday03/04/2022 please take 5 mg of warfarin. (5 X 1 mg tablets) Please go to Dr. Alexis's office Friday to have an INR protime drawn and either Dr. Moreira or my office can advise on further warfarin dosing. We would like you to stop the Lovenox when the INR is greater or equal to 2.0. Patient Instructions: Warfarin (By mouth) Follow-up/Referrals: Sabas Moreira MD [Primary Care Provider] - (Please see Dr. Moreira on Friday morning for protime INR test, 03/04/2022. Have Dr. Moreira make recommendations for further dosing or call our office for the same.) Discharge Medications: New warfarin 1 mg tablet 1 mg PO DAILY Qty: 40 0RF warfarin 1 mg tablet 1 mg PO DAILY Qty: 40 0RF Rx Instructions: Follow written instructions on how many 1 mg tabs to take each day. enoxaparin [Lovenox]
[2022-03-02] MEDS: WARFARIN (*PBKC) 2 MG, WARFARIN (*PBKC) 5 MG 7 MG PO (09:06)
[2022-03-02 11:50] VITALS: BP 162/65; PULSE 60; RESP 18; TEMP 36.1; O2SAT 98
[2022-03-02] MEDS: oxyCODONE HCL (*CRX) 5 MG TAB IR PO (14:31)
== END 2022-03-02 15:20 | disposition home or self-care (01) ==
LOC: ANHSURGERY 10:11 → ANH2MED 15:35
PROVIDERS: Anesthesiology; PCP Internal Medicine; Visit Provider Orthopaedic Surgery
PROC: (CPT 20680; principal; 2022-03-01 12:00)
DX: T84.196A Other mechanical complication of internal fixation device of bone of right lower leg, initial encounter (principal); Y83.8 Other surgical procedures as the cause of abnormal reaction of the patient, or of later complication, without mention of misadventure at the time of the procedure; Z96.651 Presence of right artificial knee joint; D68.51 Activated protein C resistance; I10 Essential (primary) hypertension; N39.3 Stress incontinence (female) (male); Z79.01 Long term (current) use of anticoagulants
CPT/HCPCS: 20680; 36415; 73560; 80048; 85025; 85610; 85730; 87070; 87147; 87181; 87186; 97161; 97165; 99199; A9270; J0360; J0690; J1170; J1650; J1885; J3010; J3370; J7120

== ENCOUNTER 2022-06-10 13:54 | Outpatient (CLI) | payer MEDICARE, SELFPAY ==
--- NOTE | ~2022-06-10 | MM_ITS ---
EXAMINATION: MM screening konrad BI w nigel HISTORY: Screening mammogram TECHNIQUE: Craniocaudal and mediolateral oblique 3-D tomosynthesis images were obtained and synthetic 2-D images were generated. CAD analysis was submitted and interpreted. COMPARISON: 06/15/2014 BREAST PARENCHYMAL COMPOSITION: The breasts are almost entirely fatty. FINDINGS: No suspicious mass, calcification, or architectural distortion are identified in either nathalie ast to suggest malignancy. There has been no suspicious interval change. IMPRESSION: 1. No mammographic evidence of malignancy. 2. Recommend routine screening mammography while the patient remains in good health. BI-RADS Category 1: Negative Reviewed, dictated and finalized at location A. IMPRESSION: 1. No mammographic evidence of malignancy. 2. Recommend routine screening mammography while the patient remains in good he alth. BI-RADS Category 1: Negative
== END 2022-06-10 13:55 | disposition home or self-care (01) ==
LOC: CHSIMG 13:56
PROVIDERS: PCP Internal Medicine; Visit Provider Internal Medicine
DX: Z12.31 Encounter for screening mammogram for malignant neoplasm of breast (principal)
CPT/HCPCS: 77063; 77067

== ENCOUNTER 2022-11-08 09:56 | Outpatient (CLI) | payer MEDICARE, SELFPAY ==
--- NOTE | ~2022-11-08 | US_ITS ---
Thyroid ultrasound. Clinical History: Nontoxic goiter COMPARISON: 06/10/2013 Findings: Real-time sonography of the thyroid gland was performed. The right lobe measures 3.7 x 2.0 x 1.9 cm. The left lobe measures 6.4 x 4.5 x 3.6 cm. The isthmus is 18 mm in AP diameter. There is a 0.6 and a cystic nodule in the right upper to midpole. There is a 2.4 x 2.0 cm hypoechoic solid nodule at the posterior aspect of the left midpole. There is a 1.6 x 1.4 cm cystic nodule at th e left lower pole. Impression: Findings most consistent with multinodular goiter, in particular effecting the left thyroid lobe whic h is asymmetrically enlarged and multinodular as compared to the right. Appearance is overall probabl y without significant change since 06/10/2013.. Reviewed, dictated and finalized at location . Impression: Findings most consistent with multinodular goiter, in particular effecting the left thyroid lobe which is asymmetrically enlarged and multinodular as compared to the right. Appearance is overall probably without significant change since 06/10/2013..
== END 2022-11-08 09:57 | disposition home or self-care (01) ==
LOC: CHSIMG 09:58
PROVIDERS: PCP Internal Medicine; Visit Provider Internal Medicine
DX: E04.0 Nontoxic diffuse goiter (principal)
CPT/HCPCS: 76536

== ENCOUNTER 2022-11-11 09:00 | Outpatient (CLI) | payer MEDICARE, SELFPAY ==
--- NOTE | ~2022-11-11 | NM_ITS ---
EXAMINATION: NM thyroid scan w uptake DATE: 11/12/2022 10:37 INDICATION: Nontoxic diffuse goiter. COMPARISON: Ultrasound 11/08/2022, 06/10/13, scintigraphy 06/23/2013 TECHNIQUE: 0.23 mCi I-123 was administered orally. Scintigraphic images of the thyroid gland were ob tained at 24 hours. Thyroid uptake was calculated by the technologist. FINDINGS: The thyroid uptake is 9% (normal 10-30%). There is heterogeneous activity in the thyroid correlating with a multinodular goiter by ultrasound. IMPRESSION: 1. Normal 24-hour iodine uptake. 2. Multinodular goiter with scintigraphy pattern stable from 06/23/2013. Reviewed, dictated and finalized at location A.
== END 2022-11-11 09:01 | disposition home or self-care (01) ==
LOC: CHSIMG 09:02
PROVIDERS: PCP Internal Medicine; Visit Provider Internal Medicine
DX: E04.0 Nontoxic diffuse goiter (principal); E04.2 Nontoxic multinodular goiter
CPT/HCPCS: 78014; A9516

== ENCOUNTER 2022-11-29 14:21 | Outpatient (CLI) | payer MEDICARE, SELFPAY ==
--- NOTE | 2022-11-29 14:25 | ECHO_ITS ---
Patient Info Name: Reva Pan Age: 82 years : 1940 Gender: Female Ht: 65 in Wt: 179 lbs BSA: 1.95 m2 HR: 71 bpm BP: 159 / 92 mmHg Technical Quality: Good Exam Date: 11/29/2022 2:25 PM Exam Location: [facility], [place] Patient Status: Outpatient Admit Date: 11/29/2022 Staff Ordering Physician: Sabas Moreira MD [employer] Supervisor: Bryn Gutierrez RDCS, RT Attending Provider: Sabas Moreira MD Referring Physician: Harish PLUMMER; Exam Type: CA echo doppler color flow Study Info Indications I50.9 - Heart failure, unspecified Complete two-dimensional, color flow and Doppler transthoracic echocardiogram is performed. Strain analysis performed. History/Risk Factors Hypertension: Yes Dyslipidemia: No Peripheral Arterial Disease (PAD): No Myocardial Infarction (MT): No Obesity: Yes Renal Disease: No Congestive Heart Failure (CHF): No Diabetes Mellitus: No Tobacco Use: Never Cerebrovascular Disease: No DVT Treatment: Warfarin Deep Vein Thrombosis (DVT): Acute Dialysis: None Frailty Scale (CSHA): 4: Vulnerable Summary 1. Complete two-dimensional, color flow and Doppler transthoracic echocardiogram is performed. 2. Left ventricular chamber dimension is normal. 3. Left ventricular systolic function is normal, estimated at 55-60%. 4. There is moderate concentric increased left ventricular wall thickness. 5. The left ventricular diastolic function is grade I diastolic dysfunction. 6. E/e' 14 is mildly elevated. 7. Global longitudinal strain is abnormal at -14.3%. 8. Left atrial chamber dimension is mildly enlarged. 9. There is mild aortic valve sclerosis. 10. There is mild aortic valve stenosis with a peak velocity of 145 cm/s, mean gradient of 4 mmHg, and aortic valve area of 1.8 cm2. 11. There is trace aortic valve regurgitation. 12. The mitral valve has moderately calcified annulus. 13. There is mild mitral valve regurgitation. 14. There is mild tricuspid valve regurgitation. 15. No pulmonary hypertension, estimated pulmonary arterial systolic pressure is 31 mmHg. 16. There is mild pulmonic regurgitation. 17. There is trivial pericardial effusion. Left Ventricle E/e' 14 is mildly elevated. Global longitudinal strain is abnormal at -14.3%. Left ventricular chamber dimension is normal. Left ventricular systolic function is normal, estimated at 55-60%. There is moderate concentric increased left ventricular wall thickness. The left ventricular diastolic function is grade I diastolic dysfunction. Right Ventricle Right ventricular systolic function is normal and with normal TAPSE 2.5 cm. Right ventricular chamber dimension is normal. Left Atria Left atrial chamber dimension is mildly enlarged. Right Atria Right atrial chamber dimension is normal. Aortic Valve The aortic valve is trileaflet. There is mild aortic valve sclerosis. There is mild aortic valve stenosis with a peak velocity of 145 cm/s, mean gradient of 4 mmHg, and aortic valve area of 1.8 cm2. There is trace aortic valve regurgitation. Pulmonic Valve There is mild pulmonic regurgitation. Mitral Valve The mitral valve has moderately calcified annulus. There is no mitral valve stenosis. There is mild mitral valve regurgitation. Tricuspid Valve There is mild tricuspid valve regurgitation. No pulmonary hypertension, estimated pulmonary arterial systolic pressure is 31 mmHg. Pericardium/Pleural There is trivial
== END 2022-11-29 14:22 | disposition home or self-care (01) ==
LOC: CHSIMG 14:22
PROVIDERS: PCP Internal Medicine; Visit Provider Internal Medicine
DX: I50.9 Heart failure, unspecified (principal); I08.3 Combined rheumatic disorders of mitral, aortic and tricuspid valves; I31.39 Other pericardial effusion (noninflammatory)
CPT/HCPCS: 93306

== ENCOUNTER 2022-12-03 09:26 | Outpatient (CLI) | payer MEDICARE, SELFPAY ==
--- NOTE | ~2022-12-03 | XR_ITS ---
EXAMINATION: XR barium swallow modified DATE: 12/03/2022 10:08 INDICATION: Dysphagia. TECHNIQUE: The patient was given barium-containing material of multiple consistencies to swallow by t audrey speech pathologist while I performed fluoroscopy. Dose-area product was 3.117 Gy-cm2. 3.1 minutes fluoroscopy time FINDINGS: Oral Stage: Within functional limits Pharyngeal Phase: There is laryngeal penetration without aspiration, with large thin bolus, improved with small bolus and chin tuck Vallecular residue, cleared with multiple swallows Cervical/Esophageal Stage: Within functional limits IMPRESSION: Modified esophagram findings as above. Please refer to the speech [facility] report [facility]. Reviewed, dictated and finalized at Location A. Reviewed, dictated and finalized at location L. IMPRESSION: Modified esophagram findings as above. Please refer to the speech t herapy report for specific recommendations.
--- NOTE | 2022-12-03 15:51 | REHSTMBS ---
Assessment and note entered by Deloris Schmidt, LOG BRANDER Modified Barium Swallow Evaluation Diagnosis Dysphagia Subjective Information Patient reported that she has noticed some coughing/difficulty swallowing primarily with pills over the past month. Patient was referred for an MBS to determine if there is any cause for the difficulty. Feeding Type Recommended Oral Food Consistency Regular, Easy to Chew (7) Liquid Consistency Thin (0) ST Clinical Summary Patient was referred by her primary physician for an MBS due to recent reported difficulty swallowing. Patient reported that she primarily has difficulty swallowing her pills but does not have difficulty every day. Patient was seen with thin barium controlled and uncontrolled, pudding, peaches and alexandre cracker during the MBS. Patient tolerated all trials with no observed aspiration. Patient presented with shallow-deep penetration with thin fluids when drinking consecutive gulps via cup. When modified to single/smaller sips and use of chin tuck no laryngeal penetration was observed. Patient presented with mild vallecular residue post deglutition with all consistencies trialed but was able to clear residue with cued dry swallow. Education with patient and daughter regarding compensatory techniques to improve airway protection, recommended diet, and ways to improve swallowing medication with response in understanding. No ST warranted at this time due to being an evaluation only.
== END 2022-12-03 09:27 | disposition home or self-care (01) ==
LOC: CHSIMG 09:28
PROVIDERS: PCP Internal Medicine; Visit Provider Internal Medicine
DX: I50.9 Heart failure, unspecified (principal); R13.10 Dysphagia, unspecified
CPT/HCPCS: 92611

== ENCOUNTER 2022-12-11 21:45 | Emergency (ER) | payer MEDICARE, SELFPAY ==
[2022-12-11] VITALS (8 sets, daily range): BP systolic 179–190; BP diastolic 73–94; PULSE 76–93; RESP 13–20; TEMP 36.8; O2SAT 95–99
--- NOTE | ~2022-12-11 | CT_ITS ---
EXAMINATION: CT cervical spine wo con DATE: 12/11/2022 22:45 INDICATION: LEFT SIDED NECK PAIN WITH LEFT ARM RADIATION. NKI. TECHNIQUE: Computed tomography (CT) of the cervical spine was performed without intravenous contrast. Automated exposure control and iterative reconstruction technique were employed. The dose-length pro duct was 189.01 mGy-cm. COMPARISON: 01/31/2017. FINDINGS: Vertebral Body Alignment: Intact. Reversed lordosis, centered at C4-5. Craniocervical and atlantoaxial alignment: Severe degenerative change. Alignment intact. Osseous structures/fracture: No evidence of a lytic or blastic process in the visualized spine. No e vidence of acute fracture. ACDF spanning C3-C5, interbody bone plugs in good position. No hardware fr acture or perihilar hardware lucency. Cervical soft tissues: The paraspinal soft tissues planes are maintained. Biapical pleural scarring. Interstitial disease, most evident in the right lung. Multinodular goiter. Degenerative changes: Multilevel severe degenerative disc disease. Multilevel severe facet arthropath y. Multilevel bilateral severe neural foraminal narrowing. Severe central canal stenosis at C4-5. IMPRESSION: No acute fracture or traumatic malalignment in the cervical spine. Pulmonary opacities in the right l hiren may represent asymmetric interstitial edema or chronic interstitial lung disease versus atypical infection. Reviewed, dictated and finalized at location K. IMPRESSION: No acute fracture or traumatic malalignment in the cervical spine. Pulmonary op acities in the right lung may represent asymmetric interstitial edema or chroni c interstitial lung disease versus atypical infection.
--- NOTE | ~2022-12-11 | XR_ITS ---
EXAMINATION: XR chest 1V portable Exam Date/Time: 12/11/2022 22:40 CDT HISTORY: LEFT SIDED NECK AND ARM PAIN. EDEMA OF EXTREMITIES. HX CHF. Comparison: 01/17/2021. RESULT: Lines, tubes, and devices: Incompletely visualized cervical fusion hardware. Lungs and pleura: Worsening diffuse reticular opacities. Cardiomediastinal silhouette: Cardiomegaly. Other: No acute osseous or upper abdominal finding. IMPRESSION: Worsening interstitial lung disease versus mild interstitial edema overlying chronic stable interstit ial changes. Reviewed, dictated and finalized at location K. IMPRESSION: Worsening interstitial lung disease versus mild interstitial edema overlying ch ronic stable interstitial changes.
--- NOTE | 2022-12-11 21:50 | ED.UPPEXIN ---
HPI - Extremity Injury (Upper) General Chief Complaint: Extremity Injury, Upper Stated Complaint: Left Arm Pain Time Seen by Provider: 12/11/22 21:47 Source: patient Mode of arrival: ambulatory Limitations: no limitations History of Present Illness HPI narrative: 82-year-old female with a history of hypertension, factor 5 Leiden heterozygous with DVT on eliquis, diastolic dysfunction, negative stress test in 2017, status post back surgery presents to the ER with, a 1 week history of -- left arm pain which starts at the neck and radiates down to the wrist. unrelated to exercise . no chest pain or shortness of breath. no history of trauma MD complaint: injury to: left Onset (ago): week(s) ( started 1 week ago) Other Extremity Injury: Left: wrist, elbow, arm, shoulder and forearm Other injuries: none Handedness: right Relieving factors: none Exacerbating factors: none Associated symptoms: denies other symptoms Related Data Home Medications Medication Instructions Recorded Confirmed hydrocodone 5 mg-acetaminophen 325 1 tablet Q4H PRN Pain 02/26/22 12/11/22 mg tablet Eliquis DAILY 12/11/22 Allergies Allergy/AdvReac Type Severity Reaction Status Date / Time cyclobenzaprine AdvReac Mild Hallucinati Verified 12/02/22 14:41 ng Review of Systems Review of Systems: All systems reviewed & are unremarkable except as noted in HPI and below Constitutional: Constitutional: Reports as per HPI and Reports no additional constitutional complaints Eyes: Eyes: Reports as per HPI and Reports no additional eye complaints ENT: Reports system reviewed and no additional complaints, except as documented and Reports as per HPI Cardiovascular: Cardiovascular: Reports as per HPI and Reports no additional cardiovascular complaints Respiratory: Respiratory: Reports as per HPI and Reports no additional respiratory complaints Gastrointestinal: Gastrointestinal: Reports as per HPI and Reports no additional gastrointestinal complaints Genitourinary: Genitourinary: Reports no additional female genitourinary complaints and Reports as per HPI Musculoskeletal: Musculoskeletal: Reports no additional musculoskeletal complaints and Reports as per HPI Comments: neck pain which radiates down to left upper extremity Integumentary/Breasts: Skin/Breast: Reports system reviewed and no additional complaints, except as docu Comments: Bilat bilateral leg swelling with chronic venous stasis changes Neurologic: Reports system reviewed and no additional complaints, except as documented Psychiatric: Psychiatric: Reports no additional psychiatric complaints and Reports as per HPI Endocrine: Endocrine: Reports no additional endocrine complaints and Reports as per HPI Hematologic/Lymphatic: Hematologic/Lymphatic: Reports no additional hematologic/lymphatic complaints and Reports as per HPI Allergic/Immunologic: Allergic/Immunologic: Reports no additional allergic/immunologic complaints and Reports as per HPI [facility] Past Medical History Medical History Arthritis Chronic anticoagulation 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 Deep venous thrombosis Factor 5 Leiden mutation, heterozygous Hypertension Stress incontinence Surgical History Surgical History History of bilateral cataract extraction History of hysterectomy (1978) History of left mastoidectomy History of lumbar laminectomy (06/05/20) L3[facility]L4, at [facility]. History of partial thyroidectomy (1980) Thyroid goiter removed. History of tonsillectomy History of total left knee replacement (11/17/17) History of total right knee replacement (01/29/21) Status post right partial knee replacement (08/06/17) Family History Family History Father Family history of emphysema, Onset Age:
--- NOTE | 2022-12-11 22:23 | ECG_ITS ---
Measurements Intervals [place] Rate: 70 P: -5 TN: 173 QRS: -24 QRSD: 133 T: 121 QT: 435 QTc: 470 Interpretive Statements SINUS RHYTHM LEFT BUNDLE BRANCH BLOCK [120+ ms QRS DURATION, 80+ ms Q/S IN V1/V2, 85+ ms R IN I/aVL/V5/V6] ABNORMAL ECG COMPARED TO ECG 05/15/2021 11:43:33 SINUS RHYTHM NOW PRESENT Electronically Signed On 12-12-2022 9:00:18 CDT by Jonathan Enriquez M.D.
[2022-12-11 22:26] LABS: Basophils Absolute Auto 0.05 K/mm3 (0.00-0.10); Basophils Percent Auto 0.8 % (0.0-1.0); Eosinophils Percent Auto 4.8 % (1.0-6.0); Hematocrit 38.8 % (35.0-42.0); Hemoglobin 12.3 g/dL (11.7-13.8); Immature Granulocyte Absolute 0.01 K/mm3 (0.00-0.00); Immature Granulocyte Percent A 0.2 % (0.0-0.0); Lymphocytes Absolute Auto 1.07 K/mm3 (1.10-4.50); Lymphocytes Percent Auto 17.3 % (18.0-42.0); Mean Corpuscular HGB Conc 31.7 g/dL (32.0-36.0); Mean Corpuscular Hemoglobin 28.9 pg (27.0-31.0); Mean Corpuscular Volume 91.3 fL (78.0-102.0); Mean Platelet Volume 11.1 fl (9.2-11.8); Monocytes Absolute Auto 0.56 K/mm3 (0.10-0.90); Neutrophils Absolute Auto 4.2 K/mm3 (1.7-7.2); Neutrophils Percent Auto 67.9 % (50.0-70.0); Platelet Count Result 230 K/mm3 (150-420); Red Blood Count 4.25 M/mm3 (4.20-5.40); Red Cell Distribution Width 16.5 % (11.6-14.4); White Blood Count 6.2 K/mm3 (4.8-10.8)
[2022-12-11 22:39] LABS: INR 1.1; Prothrombin Time 12.2 Seconds (9.50-12.10)
[2022-12-11 22:48] LABS: Lactic Acid Reflex 0.7 mmol/L (0.4-2.0)
[2022-12-11 22:54] LABS: Alanine Aminotransferase 14 U/L (14-59); Albumin Level 3.2 g/dL (3.4-5.0); Alkaline Phosphatase 93 U/L (46-116); Anion Gap 3 mmol/L (8-16); Aspartate Amino Transferase 29 U/L (15-37); Bilirubin,Total 0.3 mg/dL (0.00-1.00); Blood Urea Nitrogen 19 mg/dL (7-18); Calcium 9.3 mg/dL (8.5-10.1); Carbon Dioxide 32 mmol/L (21-32); Chloride 106 mmol/L (98-108); Estimated Glomerular Filt Rate > 60; Glucose 108 mg/dL (70-99); NT Pro B Type Natriuretic Pept 860 pg/mL (0-450); Osmolality Calculated 295 mOsm/kg (285-295); Potassium 4.5 mmol/L (3.5-5.1); Sodium 141 mmol/L (136-145); Total Protein 7.4 g/dL (6.4-8.2)
[2022-12-11 22:56] LABS: Troponin I 170.7 ng/L (0.00-60.4)
[2022-12-11 23:00] LABS: Estimated CRCL calculation 48 ml/min
[2022-12-11] MEDS: ASPIRIN 81 MG CHEWABLE TABLET 324 MG PO (23:26)
[2022-12-11] MEDS: NITROGLYCERIN SL 0.4 MG TABLET SUBLINGUAL (23:31)
[2022-12-11] MEDS: METOPROLOL TARTRATE 25 MG TABLET 12.5 MG PO (23:31)
[2022-12-11] MEDS: ALPRAZolam (*CRX) 0.5 MG TABLET 0.25 MG PO (23:43)
[2022-12-12] VITALS (30 sets, daily range): BP systolic 144–184; BP diastolic 63–135; PULSE 52–69; RESP 18; TEMP 36.7; O2SAT 91–98
[2022-12-12] MEDS: NITROGLYCERIN OINTMENT 1 INCH DOSE TRANSDERM (00:43)
--- NOTE | 2022-12-12 01:37 | PC.NURSE ---
DR Lagunas just spoke with Catrachita from [facility] about the delay in transfer, waiting on accepting hospitalist to call back.
[2022-12-12 02:18] LABS: Troponin I 152.3 ng/L (0.00-60.4)
== END 2022-12-12 03:18 | disposition short-term general hospital (02) ==
PROVIDERS: Emergency Provider Internal Medicine Critical Care Medicine; PCP Internal Medicine
DX: I21.4 Non-ST elevation (NSTEMI) myocardial infarction (principal); D68.51 Activated protein C resistance; I11.0 Hypertensive heart disease with heart failure; I50.33 Acute on chronic diastolic (congestive) heart failure; Z86.718 Personal history of other venous thrombosis and embolism; Z79.01 Long term (current) use of anticoagulants
CPT/HCPCS: 36415; 71045; 72125; 80053; 83605; 83880; 84484; 85025; 85610; 85730; 93005; 99285; A9270

== ENCOUNTER 2022-12-12 03:58 | Observation (INO) | payer MEDICARE, SELFPAY ==
[2022-12-12] VITALS (10 sets, daily range): BP systolic 152–185; BP diastolic 51–72; PULSE 57–88; RESP 16–18; TEMP 36.3–36.7; O2SAT 93–96; BMI 31.5
--- NOTE | 2022-12-12 | EST_ITS ---
Patient Info Name: Reva Pan Age: 82 years : 1940 Gender: Female Ht: 65 in Wt: 189 lbs BSA: 2.01 m2 HR: 65 bpm BP: 192 / 66 mmHg Heart Rhythm: Sinus Rhythm Exam Date: 12/12/2022 12:42 PM Exam Location: [facility] Stress Patient Status: Inpatient Admit Date: 12/12/2022 Staff Ordering Physician: Soy Brown DO Attending Provider: Christopher Gaston MD Exercise Technologist: Lucrecia Knowles CT Nurse: sherry rowell Exam Type: CA stress dorothy w NM Study Info Indications R07.89 - Other chest pain A regadenoson stress test was performed. History/Risk Factors Hypertension: Yes Dyslipidemia: No Peripheral Arterial Disease (PAD): No Myocardial Infarction (AZ): No Obesity: Yes Renal Disease: No Congestive Heart Failure (CHF): No Diabetes Mellitus: No Tobacco Use: Never Cerebrovascular Disease: No DVT Treatment: Warfarin Deep Vein Thrombosis (DVT): Acute Dialysis: None Frailty Scale (CSHA): 4: Vulnerable Summary 1. No abnormal ST-T wave changes with lexiscan. 2. Please correlate with nuclear medicine images, reported separately. 3. Non-diagnostic ECG due to left bundle branch block. Protocol: Lexiscan Stress ECG Details Stage: REST Duration (min): 10 min : 34 sec HR (bpm): 66 SBP (mmHg): 192 DBP (mmHg): 83 Stage: REST Duration (min): 12 min : 23 sec HR (bpm): 70 SBP (mmHg): 192 DBP (mmHg): 83 Stage: STAGE 1 Duration (min): 1 min : 0 sec HR (bpm): 75 SBP (mmHg): 192 DBP (mmHg): 83 Stage: RECOVERY Duration (min): 1 min : 0 sec HR (bpm): 77 SBP (mmHg): 186 DBP (mmHg): 62 Stage: RECOVERY Duration (min): 2 min : 0 sec HR (bpm): 80 SBP (mmHg): 186 DBP (mmHg): 62 Stage: RECOVERY Duration (min): 3 min : 0 sec HR (bpm): 76 SBP (mmHg): 186 DBP (mmHg): 62 Stage: RECOVERY Duration (min): 3 min : 19 sec HR (bpm): 77 SBP (mmHg): 170 DBP (mmHg): 68 Rest HR: 70 bpm Peak HR: 82 bpm Rest Sys BP: 192 mmHg Peak Sys BP: 186 mmHg Max Pred HR: 136 bpm % Max Pred HR: 60 % Target HR: 116 bpm Max RPP: 15,252 bpm*mmHg BP Response: Normal blood pressure response Termination Reason: Completed protocol Cardiac Symptoms: None Total Time: 1 min : 0 sec Rest Escobar BP: 83 mmHg Peak Escobar BP: 62 mmHg Total Dose: 0.4 mg Resting ECG Normal sinus rhythm. Left bundle branch block. Stress ECG Non-diagnostic ECG due to left bundle branch block. Arrhythmias Occasional PVCs. Report Signatures
--- NOTE | ~2022-12-12 | NM_ITS ---
EXAMINATION: NM dorothy stress w perfusion DATE: 12/12/2022 14:04 INDICATION: Chest pain TECHNIQUE: Rest images were obtained following intravenous administration of 10.4 mCi Tc99m tetrofosm in (Myoview). The patient was infused intravenously with Lexiscan (Regadenoson). Then, 33.3 mCi Tc99m tetrofosmin (Myoview) was administered intravenously, and stress images were obtained. Data was migdalia nstructed into short axis and horizontal and vertical long axis SPECT images. Gated SPECT images were also obtained. COMPARISON: None. FINDINGS: Mild nonreversible perfusion defect consistent with infarct involving the mid inferior, mid inferolateral and basilar inferolateral segments. No reversible perfusion defects to suggest ischemi a. There is normal left ventricular chamber size, wall motion and ejection fraction. Left ventricula r ejection fraction measures 54%. IMPRESSION: 1. Small mild nonreversible perfusion defect consistent with infarct along the mid inferior, mid infe rolateral and basilar inferolateral segments. No reversible ischemia. 2. Left ventricular ejection fraction measuring 54%. Reviewed, dictated and finalized at location A. IMPRESSION: 1. Small mild nonreversible perfusion defect consistent with infarct along the mid inferior, mid inferolateral and basilar inferolateral segments. No reversib le ischemia. 2. Left ventricular ejection fraction measuring 54%.
--- NOTE | ~2022-12-12 | US_ITS ---
EXAMINATION: US carotid duplex BI DATE: 12/12/2022 12:00 INDICATION: Carotid bruit TECHNIQUE: Grayscale, color Doppler, and pulsed Doppler images of the cervical carotid arteries were obtained. The degree of vessel stenosis is placed in one of the following categories: normal, <50%, 5 0-69%, >=70% but less than near-occlusion, near-occlusion, or total occlusion. Note that percent sten osis relative to normal distal artery lumen diameter is indirectly measured from velocity measurement s as described by Florin, et al. Radiology 2003; 229:340-346. COMPARISON: 06/08/2007 FINDINGS: RIGHT: The right common carotid artery (CCA) peak systolic velocity (PSV) is 93 cm/s. The right internal car otid artery (ICA) PSV is 81 cm/s. The right ICA end-diastolic velocity (EDV) is 17 cm/s. The right IC A/CCA PSV ratio is 0.9. Grayscale and color Doppler images yield an estimate of <50% diameter reducti on from plaque in the ICA. The external carotid artery (ECA) PSV is 123 cm/s. There is antegrade flow in the right vertebral artery. LEFT: The left CCA PSV is 144 cm/s. The left ICA PSV is 90 cm/s. The left ICA EDV is 22 cm/s. The left ICA/ CCA PSV ratio is 0.6. Grayscale and color Doppler images yield an estimate of <50% diameter reduction from plaque in the ICA. The ECA PSV is 128 cm/s. There is antegrade flow in the left vertebral arter y. IMPRESSION: 1. <50% stenosis in the right internal carotid artery. 2. <50% stenosis in the left internal carotid artery. Reviewed, dictated and finalized at location A.
--- NOTE | ~2022-12-12 | XR_ITS ---
Left Shoulder Technique: AP and scapular Y views were obtained. Clinical History: Pain Findings: No fracture or dislocation is seen. There is [id number] AC joint degenerative change. There is minimal glenohumeral joint degenerative change. Soft tissues are unremarkable. There is pro bable moderate pulmonary edema or chronic interstitial disease. Impression: Degenerative changes, as above. No fracture or dislocation. Probable moderate pulmonary edema versus chronic interstitial disease. Reviewed, dictated and finalized at location . Impression: Degenerative changes, as above. No fracture or dislocation. Probable moderate pulmonary edema versus chronic interstitial disease.
--- NOTE | 2022-12-12 04:13 | ADMGEN ---
This patient, Reva Pan, was admitted to IMU Room 214-01 at 0400 transferred from [facility]. Patient/family oriented to hospital policies and general routines including ID bracelet, bed and alarms, visiting hours, pain management, procedures, bathroom and other care routines, personal items, smoking policy, room service/diet, and visiting hours. Information on how to activate the Rapid Response Team has been discussed. Patient/Family are encouraged to report perceived risks to care and to ask questions if they do not understand what they are told or what they should do.
--- NOTE | 2022-12-12 05:05 | ECG_ITS ---
Measurements Intervals [place] Rate: 82 P: 22 OR: 171 QRS: -19 QRSD: 133 T: 142 QT: 412 QTc: 482 Interpretive Statements SINUS RHYTHM LEFT BUNDLE BRANCH BLOCK [120+ ms QRS DURATION, 80+ ms Q/S IN V1/V2, 85+ ms R IN I/aVL/V5/V6] COMPARED TO ECG 12/11/2022 22:43:36 NO SIGNIFICANT CHANGES Electronically Signed On 12-12-2022 16:06:02 CDT by Horacio Lewis M.D.
[2022-12-12 06:18] LABS: INR 1.3; Prothrombin Time 15.7 Seconds (11.1-14.7)
[2022-12-12 06:19] LABS: Partial Thromboplastin Time 31.6 SECONDS (22.3-36.8)
[2022-12-12 06:21] LABS: Anion Gap 2 mmol/L (8-16); Blood Urea Nitrogen 18 mg/dL (7-17); Calcium 9.3 mg/dL (8.4-10.2); Carbon Dioxide 32 mmol/L (22-30); Chloride 106 mmol/L (98-107); Estimated CRCL calculation 64 ml/min; Estimated Glomerular Filt Rate > 60; Glucose 93 mg/dL (65-110); Phosphorus 3.9 mg/dL (2.5-4.5); Potassium 4.2 mmol/L (3.4-5.0); Sodium 140 mmol/L (137-145)
[2022-12-12 06:33] LABS: Troponin I < 0.012 ng/mL (0.000-0.034)
--- NOTE | 2022-12-12 08:50 | PM.IMHP ---
H&P: HPI History of Present Illness Date/Time: 12/12/22 08:50 Chief Complaint: Left arm pain Narrative: 82yo female with HTN, LBBB, Factor V Leiden and DVT on anticoagulation seen at an outside hospital for left arm pain. Patient has been feeling well up until about a month ago when she has noted increasing dyspnea on exertion. There has been change her symptoms this time.. More recently she had a issue with pill dysphagia underwent a swallow study about a week ago which was negative for aspiration. She also had an echocardiogram about 2 weeks ago showing EF of 55-60% and grade 1 diastolic dysfunction. She had mild valvular disease. About a week ago, patient developed left arm pain in the left upper chest and shoulder radiating to the elbow. Does no fall or trauma. She has no numbness or tingling in the left fingers. No weakness in left hand. The pain is constant better when she takes pain medications. She has hydrocodone that she takes chronically for her chronic knee pains. The arm pain is worse with active range of motion. She can use the right hand and move the left arm but this is less painful. The pain radiates to the left upper back. Pain does not radiate to the jaw. She has no chest pain. No nausea or diaphoresis with the pain. She has trouble lifting the left arm over her head. She had a similar occurrence occur in the right shoulder but the pain has resolved. An MRI was performed for further evaluation and noted ?tears? but she was not a surgical candidate. She cannot lift her right arm over her head as of this reason. She has no history of coronary disease. No history of strokes. No history of peripheral arterial disease. She is lifelong nonsmoker. No recent stress test. She has noted leg edema increasing over the past 3-4 days. No calf pain. No PND. She has nocturia 4-6 times a night but this is without change. No headaches, fever, chills, cough, abdominal pain, nausea, vomiting, diarrhea, constipation, dysuria, hematuria. Patient presented to the outside emergency room for evaluation. In the ED, blood pressure was 153/100. She was afebrile. Pulse rate was normal. He was not hypoxic. EKG showed normal sinus rhythm with left bundle-branch block. The bundle branch block is chronic. Chest x-ray reviewed showing worsening interstitial lung disease versus mild interstitial edema when compared with chest x-ray from 2020. Cervical spine CT showed no acute fractures or traumatic malalignment of the cervical spine. Pulmonary opacities in the right lung may represent asymmetric interstitial edema or chronic interstitial lung disease. CBC, PT, PTT and CMP showed only minor abnormalities. Troponin was elevated at 171 (normal is 0-60). BNP was 860. She was given a dose of metoprolol and sublingual nitroglycerin. Aspirin was started. A dose of Xanax was given and she was placed on nitropaste. She was transferred to [facility] for further management. 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 Deep venous thrombosis Factor 5 Leiden mutation, heterozygous Hypertension Left bundle branch block Stress incontinence Surgical History Surgical History History of bilateral cataract extraction History of cervical spinal surgery May 2021 History of hysterectomy (1978) History of left mastoidectomy History of lumbar laminectomy (06/05/20) L3-L4, at [facility]. History of partial thyroidectomy (1980) Thyroid goiter removed. 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
[2022-12-12] MEDS: APIXABAN 5 MG TABLET BY MOUTH (08:59)
[2022-12-12] MEDS: HYDROcodone/acetaminophen (*CRX) 5-325 MG TABLET 1 TAB PO ×2 (08:59→14:14)
--- NOTE | 2022-12-12 09:43 | PM.CNCAR ---
Assessment and Plan Assessment and plan (1) Hypertension: Code(s): I10 - Essential (primary) hypertension Status: Acute Assessment and Plan: Stable. (2) Factor 5 Leiden mutation, heterozygous: Code(s): D68.51 - Activated protein C resistance Status: Acute Assessment and Plan: Eliquis 5 mg BID. (3) Left bundle branch block: Code(s): I44.7 - Left bundle-branch block, unspecified Status: Acute (4) Left arm pain: Code(s): M79.602 - Pain in left arm Status: Acute Assessment and Plan: Troponin was mildly elevated at [place] lab of 170 but normal here. Obtain lexiscan myoview stress test. If unremarkable may d/c home from cardiology standpoint. History of Present Illness History of Present Illness Consult date/time: 12/12/22 09:43 Reason For Visit: Elevated troponin Narrative: 82 yr old woman who is my regular cardiology patient who's PCP is Dr. Moreira presents to ER for left arm pain. She has a history of hypertension, DVT, Factor V Leiden mutation, heterozygous. Reports she has been having intermittent left arm pain radiating to her shoulder for last 1 week. She thought it was musculoskeletal given she has been pushing herself up in chair. She is limited at walking with a walker very short distances due to knee pains and BROWN. Denies chest pain, sob, orthopnea, PND, edema, dizziness, palpitations. Cardiovascular Procedures Echo/MUGA:: 11/29/22 Echo: EF 55-60%, mod LVH, grade I diastolic dysfunction (E/e' 14), mild LAE, mild (LOTUS 1.8 cm2), trace AI, mild MR/TR/PI. 01/09/21 Echo: EF 55-60%, mild LVH, grade I diastolic dysfunction (E/e' 23), mild LAE, mild MR/TR, RVSP 43 mmHg. Electrophysiology:: 05/21/21 EKG: Sinus rhythm, first degree AV block, LBBB. Stress Tests:: 07/25/17 Lexiscan myoview: Negative. Review of Systems Review of Systems: All systems reviewed & are unremarkable except as noted in HPI and below Constitutional: Constitutional: Reports as per HPI, Denies chills and Denies fever(s) Cardiovascular: Cardiovascular: Reports as per HPI, Denies chest pain, Denies irregular heart rhythm, Denies leg edema and Denies lightheadedness Respiratory: Respiratory: Reports as per HPI and Denies dyspnea Gastrointestinal: Gastrointestinal: Reports as per HPI and Denies abdominal pain Genitourinary: Genitourinary: Reports as per HPI and Denies dysuria Musculoskeletal: Musculoskeletal: Reports as per HPI and Reports arthralgias Neurologic: Reports as per HPI, Denies dizziness and Denies syncope [facility] Past Medical History Medical History Arthritis Chronic anticoagulation 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 Deep venous thrombosis Factor 5 Leiden mutation, heterozygous Hypertension Left bundle branch block Stress incontinence Surgical History Surgical History History of bilateral cataract extraction History of cervical spinal surgery May 2021 History of hysterectomy (1978) History of left mastoidectomy History of lumbar laminectomy (06/05/20) L3[facility]L4, at [facility]. History of partial thyroidectomy (1980) Thyroid goiter removed. 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 Her daughter lives at home with her. They have some c
[2022-12-12 10:28] LABS: Troponin I 0.016 ng/mL (0.000-0.034)
[2022-12-12] MEDS: ASPIRIN 81 MG CHEWABLE TABLET PO (11:04)
--- NOTE | 2022-12-12 11:35 | PC.NURSE ---
Pt to US and then Nuclear Medicine for testing via stretcher
--- NOTE | 2022-12-12 14:02 | PC.NURSE ---
Pt returned from nuclear medicine via stretcher with no issues noted
[2022-12-12] MEDS: FUROSEMIDE INJ 40 MG/4 ML VIAL 20 MG IV PUSH (14:13)
--- NOTE | 2022-12-12 16:48 | PM.DS ---
DS: Admitting Diagnosis Discharge Date 12/12/22 Admitting Diagnosis Left arm pain DS: Discharge Diagnosis Discharge Diagnosis (1) Left arm pain: Code(s): M79.602 - Pain in left arm Status: Acute (2) Elevated troponin: Code(s): R77.8 - Other specified abnormalities of plasma proteins Status: Acute (3) Factor 5 Leiden mutation, heterozygous: Code(s): D68.51 - Activated protein C resistance Status: Acute (4) Left bundle branch block: Code(s): I44.7 - Left bundle-branch block, unspecified Status: Acute (5) Hypertension: Code(s): I10 - Essential (primary) hypertension Status: Acute DS: Summary Hospital Course Reason for hospitalization: 82yo female with HTN, LBBB, Factor V Leiden and DVT on anticoagulation seen at an outside hospital for left arm pain. Please see H&P for details. Hospital Course: Patient presented to the outside emergency room for evaluation. In the ED, blood pressure was 153/100.? She was afebrile.? Pulse rate was normal.? He was not hypoxic.? EKG showed normal sinus rhythm with left bundle-branch block.? The bundle branch block is chronic.? Chest x-ray reviewed showing worsening interstitial lung disease versus mild interstitial edema when compared with chest x-ray from 2020.? Cervical spine CT showed no acute fractures or traumatic malalignment of the cervical spine.? Pulmonary opacities in the right lung may represent asymmetric interstitial edema or chronic interstitial lung disease.? CBC, PT, PTT and CMP showed only minor abnormalities.? Troponin was elevated at 171 (normal is 0-60).? BNP was 860.? She was given a dose of metoprolol and sublingual nitroglycerin.? Aspirin was started.? A dose of Xanax was given and she was placed on nitropaste.? She was transferred to [facility] for further management. EKG here showing NSR with left BBB. Bruit appreciated but carotid doppler showing <50% bilateral internal carotid arteries. Left shoulder xray showing degenerative changes. Troponin negative x2. She underwent Lexiscan stress test which showed small mild nonreversible perfusion defect consistent with infarct along the mid inferior, mid inferolateral and basilar inferolateral segments. No reversible ischemia. Left ventricular ejection fraction measuring 54%. CXR findings probably related to interstitial lung disease. She had elevated BP but it is better controlled at home and may be elevated due to pain. She overall did well and was able to be discharged home on 12/12/22. Status at Discharge Cognitive/behavioral status at discharge: stable Time Spent with Patient Time attestation: Total time spent providing and/or coordinating discharge services: 54 minutes Time spent: Greater than 30 minutes Exam Narrative: AF 97.4 169/51 66 16 94% ra Gen - well-nourished, well-developed female in no acute respiratory distress who is nontoxic-appearing lying semi recumbent in bed HEENT - normocephalic. Atraumatic. Pupils equal round and reactive. Extraocular motions intact. Sclera clear and anicteric. Nares patent. Oropharynx was clear. No oral lesions. Moist mucous membranes. Tongue was midline. Palate sahara symmetrically. No facial asymmetry. Neck - neck was supple. No dominant adenopathy, thyromegaly or masses. 2+ carotid upstrokes with faint right bruits. Chest - lungs with bibasilar inspiratory dry crackles. No wheezes. Breast exam was deferred. CV - heart was regular rate and rhythm. S1-S2. 2/6 systolic murmur loudest upper sternal border. No gallops or rubs. Abd - abdomen was soft. Nontender. Nondistended. Positive bowel sounds. No organomegaly or masses. Ext - no clubbing or cyanosis. 1+ pedal edema. 2+ DP/radial pulses bilaterally. Normal senasation. No weakness with triceps, biceps, wrist flexion extension, or interosseous muscles. Empty can test had pain with minimal weakness. With difficulty, able to internal and externally rotat
== END 2022-12-12 17:50 | disposition home or self-care (01) ==
PROVIDERS: Internal Medicine; Admitting Provider Internal Medicine; PCP Internal Medicine; Visit Provider Internal Medicine
DX: M79.602 Pain in left arm (principal); R77.8 Other specified abnormalities of plasma proteins; D68.51 Activated protein C resistance; I44.7 Left bundle-branch block, unspecified; I10 Essential (primary) hypertension; R07.89 Other chest pain; I82.409 Acute embolism and thrombosis of unspecified deep veins of unspecified lower extremity; R06.09 Other forms of dyspnea; R60.0 Localized edema; R09.89 Other specified symptoms and signs involving the circulatory and respiratory systems; M19.90 Unspecified osteoarthritis, unspecified site; Z82.49 Family history of ischemic heart disease and other diseases of the circulatory system; R93.89 Abnormal findings on diagnostic imaging of other specified body structures; Z79.01 Long term (current) use of anticoagulants; Z79.891 Long term (current) use of opiate analgesic
CPT/HCPCS: 36415; 73030; 78452; 80048; 83735; 84100; 84484; 85610; 85730; 93005; 93017; 93880; 96374; A9270; A9502; G0378; G0379; J1940; J2785

== ENCOUNTER 2023-01-07 10:11 | Outpatient (CLI) | payer MEDICARE, SELFPAY ==
[2023-01-07 11:42] LABS: Anion Gap 8 mmol/L (8-16); Blood Urea Nitrogen 16 mg/dL (7-18); Carbon Dioxide 28 mmol/L (21-32); Chloride 103 mmol/L (98-108); Estimated Glomerular Filt Rate > 60; Glucose 95 mg/dL (70-99); Magnesium 1.9 mg/dL (1.8-2.4); Osmolality Calculated 289 mOsm/kg (285-295); Potassium 4.2 mmol/L (3.5-5.1); Sodium 139 mmol/L (136-145)
== END 2023-01-07 10:12 | disposition home or self-care (01) ==
LOC: CHSLAB 10:13
PROVIDERS: PCP Internal Medicine; Visit Provider Internal Medicine Cardiovascular Disease
DX: I51.89 Other ill-defined heart diseases (principal)
CPT/HCPCS: 36415; 80048; 83735

== ENCOUNTER 2023-11-25 08:01 | Outpatient (CLI) | payer MEDICARE, SELFPAY ==
--- NOTE | ~2023-11-25 | MM_ITS ---
EXAMINATION: MM screening konrad BI w nigel HISTORY: Screening mammogram TECHNIQUE: Craniocaudal and mediolateral oblique 3-D tomosynthesis images were obtained and synthetic 2-D images were generated. CAD analysis was submitted and interpreted. COMPARISON: 06/06/2022 bilateral screening mammogram BREAST PARENCHYMAL COMPOSITION: The breasts are almost entirely fatty. FINDINGS: Prominent bilateral arterial calcifications are noted; this may be associated with increase d risk for clinically significant coronary artery disease. There is no evidence of suspicious mass, c alcification, or architectural distortion to suggest malignancy in either breast. There has been no s uspicious interval change. IMPRESSION: 1. No mammographic evidence of malignancy. 2. Recommend routine screening mammography in one year. 3. Prominent bilateral enteric calcifications may be associated with increased risk for clinically si gnificant coronary artery disease. BI-RADS Category 2: Benign finding(s). Reviewed, dictated and finalized at location A. IMPRESSION: 1. No mammographic evidence of malignancy. 2. Recommend routine screening mammography in one year. 3. Prominent bilateral enteric calcifications may be associated with increased risk for clinically significant coronary artery disease. BI-RADS Category 2: Benign finding(s).
[2023-11-25 09:13] LABS: Basophils Absolute Auto 0.04 K/mm3 (0.00-0.10); Basophils Percent Auto 0.6 % (0.0-1.0); Eosinophils Absolute Auto 0.19 K/mm3 (0.02-0.50); Eosinophils Percent Auto 2.8 % (1.0-6.0); Hematocrit 40.9 % (35.0-42.0); Immature Granulocyte Absolute 0.02 K/mm3 (0.00-0.00); Immature Granulocyte Percent A 0.3 % (0.0-0.0); Lymphocytes Absolute Auto 1.11 K/mm3 (1.10-4.50); Lymphocytes Percent Auto 16.6 % (18.0-42.0); Mean Corpuscular HGB Conc 31.8 g/dL (32-36); Mean Corpuscular Hemoglobin 30.5 pg (27.0-31.0); Mean Platelet Volume 10.8 fl (9.2-11.8); Monocytes Absolute Auto 0.52 K/mm3 (0.10-0.90); Monocytes Percent Auto 7.8 % (2.0-11.0); Neutrophils Absolute Auto 4.81 K/mm3 (1.70-7.20); Neutrophils Percent Auto 71.9 % (50.0-70.0); Platelet Count Result 223 K/mm3 (150-420); Red Blood Count 4.26 M/mm3 (4.20-5.40); Red Cell Distribution Width 12.8 % (11.6-14.4); White Blood Count 6.7 K/mm3 (4.8-10.8)
[2023-11-25 09:17] LABS: Appearance Urine Clear (Clear); Bilirubin Urine Negative (Negative); Blood Urine Negative (Negative); Color Urine Yellow (Yellow); Glucose Urine UA Negative (Negative); Ketones Urine Negative (Negative); Leukocyte Esterase Ur 1+ (Negative); Nitrate Urine Negative (Negative); Protein Urine Negative (Negative); Specific Grav Ur >= 1.030 (1.010-1.020)
[2023-11-25 09:22] LABS: Hemoglobin A1C 5.2 % (<5.7)
[2023-11-25 09:39] LABS: Add Urine Microscopic? NO; RBC Urine 0-2 /hpf (0-2); WBC Urine 0-3 /hpf (0-3)
[2023-11-25 09:40] LABS: Bacteria Urine 1+ /hpf; Mucus Urine Few /lpf; Squamous Epithelial Cell Urine Moderate /hpf (Few)
[2023-11-25 10:18] LABS: Alanine Aminotransferase 7 U/L (14-59); Albumin Level 3.6 g/dL (3.4-5.0); Alkaline Phosphatase 122 U/L (46-116); Anion Gap 8 mmol/L (4-12); Aspartate Amino Transferase 15 U/L (15-37); Bilirubin,Total 0.6 mg/dL (0.00-1.00); Blood Urea Nitrogen 24 mg/dL (7-18); Calcium 9.4 mg/dL (8.5-10.1); Carbon Dioxide 29 mmol/L (21-32); Chloride 105 mmol/L (98-108); Cholesterol 200 mg/dL (0-200); Estimated Glomerular Filt Rate 54; Free T3 3.08 pg/mL (2.18-3.98); Free T4 Free Thyroxine 1.34 ng/dL (0.76-1.46); Glucose 96 mg/dL (70-99); HDL Direct 57 mg/dL (40-60); LDL Cholesterol Calculated 129 mg/dL (<130); Osmolality Calculated 298 mOsm/kg (285-295); Potassium 4.5 mmol/L (3.5-5.1); Sodium 142 mmol/L (136-145); Thyroid Stimulating Hormone 0.02 uIU/mL (0.36-3.74); Total Protein 6.7 g/dL (6.4-8.2); Triglycerides 70 mg/dL (0-150)
[2023-11-25 11:02] LABS: Vitamin B12 454 pg/mL (193-986)
== END 2023-11-25 08:02 | disposition home or self-care (01) ==
LOC: CHSLAB 08:06
PROVIDERS: PCP Internal Medicine; Visit Provider Internal Medicine
DX: E78.2 Mixed hyperlipidemia (principal); I10 Essential (primary) hypertension; G60.3 Idiopathic progressive neuropathy; R73.01 Impaired fasting glucose; E04.0 Nontoxic diffuse goiter; Z12.31 Encounter for screening mammogram for malignant neoplasm of breast
CPT/HCPCS: 36415; 77063; 77067; 80053; 80061; 81003; 82607; 83036; 84439; 84443; 84481; 85025

== ENCOUNTER 2023-12-01 11:18 | Outpatient (CLI) | payer MEDICARE, SELFPAY ==
--- NOTE | ~2023-12-01 | XR_ITS ---
EXAMINATION: XR knee RT 3V DATE: 12/01/2023 11:38 INDICATION: Right knee pain. TECHNIQUE: 3 views of right knee were obtained. COMPARISON: None. FINDINGS: There is a total right knee arthroplasty with patellar resurfacing in near-anatomic alignme nt. No periprosthetic lucency to suggest loosening or infection. No fracture. No knee joint effusion. IMPRESSION: 1. Total right knee arthroplasty in near-anatomic alignment. Reviewed, dictated and finalized at location E.
== END 2023-12-01 11:19 | disposition home or self-care (01) ==
LOC: CHSIMG 11:19
PROVIDERS: PCP Internal Medicine; Visit Provider Internal Medicine
DX: M25.561 Pain in right knee (principal); Z96.651 Presence of right artificial knee joint
CPT/HCPCS: 73562

== ENCOUNTER 2023-12-29 09:22 | Outpatient (CLI) | payer MEDICARE, SELFPAY ==
[2023-12-29 10:23] LABS: Anion Gap 7 mmol/L (4-12); Blood Urea Nitrogen 25 mg/dL (7-18); Calcium 9.6 mg/dL (8.5-10.1); Carbon Dioxide 31 mmol/L (21-32); Chloride 101 mmol/L (98-108); Estimated Glomerular Filt Rate 52; Glucose 90 mg/dL (70-99); Osmolality Calculated 292 mOsm/kg (285-295); Potassium 4.5 mmol/L (3.5-5.1); Sodium 139 mmol/L (136-145)
== END 2023-12-29 09:23 | disposition home or self-care (01) ==
PROVIDERS: PCP Internal Medicine; Visit Provider Internal Medicine
DX: I10 Essential (primary) hypertension (principal)
CPT/HCPCS: 36415; 80048

== ENCOUNTER 2024-06-07 09:17 | Outpatient (CLI) | payer MEDICARE, SELFPAY ==
[2024-06-07 09:32] LABS: Basophils Absolute Auto 0.05 K/mm3 (0.00-0.10); Basophils Percent Auto 0.7 % (0.0-1.0); Eosinophils Absolute Auto 0.24 K/mm3 (0.02-0.50); Eosinophils Percent Auto 3.2 % (1.0-6.0); Hematocrit 36.7 % (35.0-42.0); Immature Granulocyte Absolute 0.01 K/mm3 (0.00-0.00); Immature Granulocyte Percent A 0.1 % (0.0-0.0); Lymphocytes Absolute Auto 1.36 K/mm3 (1.10-4.50); Lymphocytes Percent Auto 17.9 % (18.0-42.0); Mean Corpuscular HGB Conc 32.7 g/dL (32-36); Mean Corpuscular Hemoglobin 31.5 pg (27.0-31.0); Mean Corpuscular Volume 96.3 fL (78.0-102.0); Mean Platelet Volume 10.8 fl (9.2-11.8); Monocytes Absolute Auto 0.61 K/mm3 (0.10-0.90); Neutrophils Absolute Auto 5.31 K/mm3 (1.70-7.20); Neutrophils Percent Auto 70.1 % (50.0-70.0); Platelet Count Result 214 K/mm3 (150-420); Red Blood Count 3.81 M/mm3 (4.20-5.40); Red Cell Distribution Width 12.5 % (11.6-14.4); White Blood Count 7.6 K/mm3 (4.8-10.8)
[2024-06-07 10:34] LABS: Alanine Aminotransferase 21 U/L (14-59); Albumin Level 3.4 g/dL (3.4-5.0); Alkaline Phosphatase 112 U/L (46-116); Anion Gap 6 mmol/L (4-12); Aspartate Amino Transferase 17 U/L (15-37); Bilirubin,Total 0.6 mg/dL (0.00-1.00); Blood Urea Nitrogen 20 mg/dL (7-18); Calcium 9.8 mg/dL (8.5-10.1); Carbon Dioxide 30 mmol/L (21-32); Chloride 105 mmol/L (98-108); Cholesterol 190 mg/dL (0-200); Creatine Kinase 33 U/L (26-192); Estimated Glomerular Filt Rate 50; Free T3 3.31 pg/mL (2.18-3.98); Free T4 Free Thyroxine 1.35 ng/dL (0.76-1.46); Glucose 90 mg/dL (70-99); HDL Direct 59 mg/dL (40-60); LDL Cholesterol Calculated 109 mg/dL (<130); NT Pro B Type Natriuretic Pept 304 pg/mL (0-450); Osmolality Calculated 294 mOsm/kg (285-295); Potassium 4.4 mmol/L (3.5-5.1); Sodium 141 mmol/L (136-145); Thyroid Stimulating Hormone 0.02 uIU/mL (0.36-3.74); Total Protein 6.8 g/dL (6.4-8.2); Triglycerides 108 mg/dL (0-150); Vitamin B12 1174 pg/mL (193-986)
== END 2024-06-07 09:18 | disposition home or self-care (01) ==
LOC: CHSLAB 09:18
PROVIDERS: PCP Internal Medicine; Visit Provider Internal Medicine
DX: E04.0 Nontoxic diffuse goiter (principal); I10 Essential (primary) hypertension; E78.2 Mixed hyperlipidemia; K29.70 Gastritis, unspecified, without bleeding; I50.42 Chronic combined systolic (congestive) and diastolic (congestive) heart failure; G60.3 Idiopathic progressive neuropathy
CPT/HCPCS: 36415; 80053; 80061; 82550; 82607; 83880; 84439; 84443; 84481; 85025

== ENCOUNTER 2025-02-15 08:58 | Outpatient (CLI) | payer MEDICARE, SELFPAY ==
--- NOTE | ~2025-02-15 | US_ITS ---
EXAMINATION: US thyroid DATE: 02/15/2025 09:40 INDICATION: Goiter TECHNIQUE: Multiple ultrasound images of the thyroid were obtained. COMPARISON: 11/08/2022 FINDINGS: The right thyroid lobe measures 3.1 x 1.7 x 1.5 cm. The left thyroid lobe measures 6.3 x 4.4 x 4.2 c m. Thyroid isthmus measures 1.1 cm in thickness. Again seen are multiple bilateral thyroid nodules. 2 .9 cm solid wider than tall hypoechoic nodule with smooth margins and without echogenic foci in the d eep mid left thyroid lobe (TI-RADS 4, moderately suspicious , FNA if >=1.5 cm, annual followup is >=1 cm). There is a second 2.7 cm Ti RADS 4 nodule with similar imaging features at the medial inferior left thyroid lobe. 1.8 cm anechoic TI RADS 1 cystic lesion at the more lateral lower pole the left th yroid. 2.1 cm predominantly solid hypoechoic TI RADS 4 nodule at the superior left thyroid lobe. Obvi ous nodules are without significant interval change. 1.3 cm solid hypoechoic TI RADS 4 nodule with sm ooth margins and without echogenic foci in the superior right thyroid. 1.5 cm predominant solid wider than tall TI RADS 4 nodule at the inferior right thyroid with isoechoic solid component and a few pu nctate echogenic foci. Is also appear without significant interval change since the prior study. Suzanne neal there is similar size and appearance to the largest nodules on ultrasound dated 06/10/2013. IMPRESSION: 1. Stable appearance of a multinodular goiter, several of which meet criteria for ultrasound-guided b iopsy but given the long-term interval could consider continued ultrasound follow-up. Reviewed, dictated and finalized at location A. IMPRESSION: 1. Stable appearance of a multinodular goiter, several of which meet criteria f or ultrasound-guided biopsy but given the long-term interval could consider con tinued ultrasound follow-up.
--- OUTSIDE RECORDS SUMMARY | 2025-02-15 09:05 | XMS_ITS | Clinical Summary ---
Author Organization [facility] Address [address] [place] [address] Phone Care Team Providers Care Office Rep Name Role Phone Sabas Moreira MD Primary Care Provider + Allergies Active Allergy Reactions Criticality Noted Date Comments Clindamycin Rash Low 02/13/2018 Levofloxacin Shortness of Breath/Wheezing High 02/13 Medications warfarin (COUMADIN) 4 mg tablet Take 4 mg by mouth daily. Active losartan (COZAAR) 100 mg tablet Take 100 mg by mouth daily. Active docusate sodium (COLACE) 100 mg capsule Take 1 Capsule (100 mg) by mouth 2 times daily. 60 Capsule 1 06/06/2020 1:38 PM CDT 0 Active HYDROcodone-aceta minophen (NORCO) 10-325 mg TabletIndications :Lumbar stenosis with neurogenic claudication Take 1 Tablet by mouth every 4 hours as needed for Pain. Max Daily Amount: 6 Tablets 40 Tablet 06/06/2020 1:38 PM CDT 0 Active Social History Tobacco Use Types Packs/Day Years Used Date Smoking Tobacco: Never Smokeless Tobacco: Never Alcohol Use Standard Drinks/Week Comments Yes 0 (1 standard drink = 0.6 oz pur e alcohol) socially Comments No Sex and Gender Information Value Date Recorded Sex Assigned at Not on file Legal Sex Female 2:52 PM CDT Gender Identity Not on file Sexual Orientation Not on file Last Filed Vital Signs Vital Sign Reading Time Taken Comments Blood Pressure 138/49 06/06/2020 1:26 PM CDT Pulse 72 06/06/2020 1:26 PM CDT Temperature 36.4 C (97.6 F) 06/06/2020 1:26 PM CDT Respiratory Rate 16 06/06/2020 1:26 PM CDT Oxygen Saturation 100% 06/06/2020 1:26 PM CDT Inhaled Oxygen Concentration - - Weight 90.7 kg (200 lb) 06/05/2020 10:20 AM CDT Height 167.6 cm (5' 6) 06/05/2020 10:20 AM CDT Body Mass Index 32.28 06/05/2020 10:20 AM CDT Plan of Treatment Health Maintenance Due Date Last Done Comments DTAP/TDAP/TD VACCINES (1 - Tdap) 1959 PNEUMOCOCCAL VACCINE 50+ YEARS (1 of 1 - PCV) 06/30/19 88 ZOSTER VACCINE (1 of 2) 1988 OSTEOPOROSIS SCREENING 2003 RSV VACCINE (60+ or ) (1 - 1-dose 75+ series) 2013 INFLUENZA VACCINE (#1) 2024 Medical Devices Implanted Type Area Financial Director Device Identifier Shelf Expiration Date Model / Serial / Lot Hemostatic Surgiflo 8ml W/Thrombin 2994 - [id number] Implanted:Qty: 1 on 06/05/2020 by Randy Moran [facility] at [facility] Hemostatic N/A: Spine Lumbar [employer]- [employer] 05/17/2021 2994 / / [id number] Hemostatic Surgiflo 8ml W/Thrombin 2994 - [id number] Implanted:Qty: 1 on 06/05/2020 by Randy Moran MD at [facility] Hemostatic N/A: Spine Lumbar [employer] 05/17/2021 2994 / / [id number] Sealant Fibrin Evicel 5ml 3905 - [id number] Implanted:Qty: 1 on 06/05/2020 by Randy Moran MD at [facility] Other N/A: Spine Lumbar [employer]- [employer] 10/15/2021 3905 / / [id number] Insurance [facility] [id number] RX [employer] RX Member Subscriber Plan / Payer (Ef fective 2019-Present) Name:Reva Pan Relation to Subscriber:Self Name:Reva Pan Payer ID:Not on file Group ID:[id number] Type:RX Medicare Part D Address: [place] Advance Directives For more information, please contact: [phone] * Full Code (Latest Code Status on File) Date Activated Date Inactivated Comments 06/05/2020 6:58 PM 06/06/2020 4:00 PM Care Teams Office Rep Relationship Specialty Start Date End Date Sabas Moreira MD [address] [place] [address] PCP - General Internal Medicine 05/29/20
--- OUTSIDE RECORDS SUMMARY | 2025-02-15 09:05 | XMS_ITS | Clinical Summary ---
Author Organization [facility] Address Pending sale to [facility] [place] [address] Care Team Providers Care Craft Coordinator Name Role Phone Sabas Moreira MD Primary Care Provider [phone] Ernie Pearson MD Unavailable Allergies Active Allergy Reactions Criticality Noted Date Comments Clindamycin Rash Low 02/13/2018 Levofloxacin Other (see comment) 02/13/2018 dyspnea Medications losartan 100 MG tablet Take 100 mg by mouth daily. Active vitamin D3, cholecalciferol , 400 units tablet Take 400 Units by mouth daily. Active metroNIDAZOLE 0.75 % cream 8 Active COMPRESSION STOCKINGS 20-30 MMHg Compression Stocking Knee High open or closed toe Dx I83.893 1 Container 6 8 Active celecoxib 100 MG capsule 8 Active metoprolol tartrate 100 MG tablet 7 Active hydrocodone-fahad taminophen 5-325 MG tablet Take 1 tablet by mouth as needed for Pain. Active warfarin 5 MG tablet Take 5 mg by mouth daily. Active Active Problems Problem Noted Date Diagnosed Date Chronic venous insufficiency 03/05/2018 Leg edema 03/05/2018 History of DVT (deep vein thrombosis) 03/05/2018 Family History Relation Status Comments Father Maternal Grandfather Maternal Grandmother Mother Paternal Grandfather Paternal Grandmother Social History Tobacco Use Types Packs/Day Years Used Date Smoking Tobacco: Never Smokeless Tobacco: Never Alcohol Use Standard Drinks/Week Comments No 0 (1 standard drink = 0.6 oz pur e alcohol) Comments Unknown Sex and Gender Information Value Date Recorded Sex Assigned at Not on file Legal Sex 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 Gender Identity Not on file Sexual Orientation Not on file Last Filed Vital Signs Vital Sign Reading Time Taken Comments Blood Pressure 136/80 05/12/2018 2:40 PM CDT Pulse 60 05/12/2018 2:39 PM CDT Temperature - - Respiratory Rate 18 05/12/2018 2:39 PM CDT Oxygen Saturation - - Inhaled Oxygen Concentration - - Weight 100.7 kg (222 lb) 05/12/2018 2:39 PM CDT Height 162.6 cm (5' 4) 05/12/2018 2:39 PM CDT Body Mass Index 38.11 05/12/2018 2:39 PM CDT Plan of Treatment Health Maintenance Due Date Last Done Comments DTaP, Tdap and Td Vaccines ( 1 - Tdap) 1957 Pneumococcal Vaccine: 50+ Ye ars (1 of 1 - PCV) 1988 Zoster Vaccines (1 of 2) 1988 Annual Medicare Wellness Visit 2003 RSV Immunization or 60+ Years (1 - 1-dose 75+ series) 2013 COVID-19 Vaccine ( - 2023-2 5 season) 2024 Meningococcal B Vaccine Aged Out No l onger eligible based on patient's age to complete this topic Meningococcal Vaccine Aged Out No jacqueline jessica eligible based on patient's age to complete this topic RSV Immunizations Under 20 Months Aged Out No longer eligible based on patient's age to complete this topic Insurance MEDICARE [address] [place], [place] [id number] [facility] MEDICARE Care Teams Craft Coordinator Relationship Specialty Start Date End Date Sabas Moreira MD [address] [place] [address] PCP - General INTERNAL MEDICINE 02/12/18 Ernie Pearson MD [address] [place] [address] Vascular/[employer] INTERNAL MEDICINE 02/12/18
--- OUTSIDE RECORDS SUMMARY | 2025-02-15 09:05 | XMS_ITS | Data Portability ---
Author Organization [facility] Main Office Address [address] [place] [address] Care Team Providers Care Billing Clerk Name Role Phone KRISTIE SIFUENTES Primary Care Provider KRISTIE SIFUENTES Referring Provider Assessment No assessment recorded. Plan of Treatment Reminders Order Date Submit Date Provider Last Modified By Organization Details Last Modified Time Details Appointments None record ed. Lab None record ed. Referral None record ed. Procedures None record ed. Surgeries None record ed. Imaging None record ed. Medication Orders None record ed. Patient TargetsNo targets recorded. Patient Instructions Encounter Date Encounter Id Patient Instructions Last Modified By Organization Details Last Modified Time 05/31/2024 [id number] Discussed with patient and her daughter that she is cleared by ENT to trial hearing aids to aid in improvement of hearing. [email or web address] Not available 05/31/2024 14:45:13 Reason for Referral None Reported. Results Created Date Observation Date Name Description Value Unit Range Abnormal Flag Note LastModifiedBy Organization Detail LastModifiedTime 07/06/20 21 04/27/2021 MRI, lumba r spine , w/o contr ast No observ ation record ed. [id number] Not Available 10/16/2022 19:28:42 07/06/20 21 04/27/2021 MRI, shoul candelaria, w/o contr ast No observ ation record ed. [id number] Not Available 10/16/2022 19:28:42 07/06/20 21 04/27/2021 MRI, cervi jarrett spine , w/o contr ast No observ ation record ed. [id number] Not Available 10/16/2022 19:28:42 02/07/20 22 02/07/2022 XR, knee No observ ation record ed. [id number] [facility] [place] [address], [place], [address], 10/16/2022 19:28:42 03/01/20 22 03/01/2022 XR, knee No observ ation record ed. [id number], [place], [address], 10/16/2022 19:28:42 03/01/20 22 03/01/2022 XR, knee No observ ation record ed. [id number], [place], [address], 10/16/2022 19:28:42 03/01/20 22 03/01/2022 XR, knee No observ ation record ed. [id number], [place], [address], 10/16/2022 19:28:42 Result Notes None recorded. Problems Name Problem SNOMED Code Status Onset Date Resolution Date Notes Provider Name and Address Organization Details Recorded Time Radiotherapy follow-up 538050123 Active Not Available [facility] 3 19:27:36 Localized, primary osteoarthriti s of the pelvic region and thigh 914777202 Active Not Available [facility] 3 19:27:36 Osteoarthriti s 937381603 Active Not Available [facility] 3 19:27:36 Mixed conductive and sensorineural hearing loss, bilateral 799368402 Active 2023 VAN Mathur [address] [facility] [address], [place], [address] , [facility] [employer] [facility] 4 14:44:21 Problem Notes None recorded. Medical Equipment None Reported. Allergies No known drug allergies Medications Name Sig Start Date Stop Date Status Note LastModified by Organization Details LastModified Time losartan 50 mg tablet 12/05 completed Not Available Not Available Not Available carvedilol 6.25 mg tablet Take 1 tablet twice a day by oral route. 05/31 completed Not Available Not Available Not Available prednisone 10 mg tablet 12/05 completed Not Available Not Available Not Available Tylenol 500 mg capsule Take 2 tablets every 6 hours by oral route. 02/26 completed Not Available Not Available Not Available clindamycin HCl 300 mg capsule 12/05 completed Not Available Not Available Not Available metoprolol tartrate 100 mg tablet 12/05 completed Not Available Not Available Not Available hydrocodone 5 mg-acetamin ophen 325 mg tablet Take 1 tablet every 6 hours by oral route. active Not Available Not Available No t Available amlodipine 5 mg tablet 03/13 completed Not Available Not Available Not Available hydrocodone 10 mg-acetamin ophen 325 mg tablet 07/06 completed Not Available Not Available Not Available spironolact one 25 mg tablet active Not Available Not Available Not Available warfarin 4 mg tablet 05/31 completed Not Available Not Available Not Available ketorolac 0.5 % eye drops 12/05 completed Not Available Not Available Not Available oxycodone-a cetaminophe n 5 mg-325 mg tablet 12/05 completed Not Available Not Available Not Available prednisolon e acetate 1 % eye drops,suspe nsion 12/05 completed Not Available Not Available Not Available pravastatin 10 mg tablet 12/05 completed Not Available Not Available Not Available ciprofloxac in 0.3 % eye drops 12/05 completed Not Available Not Available Not Available amlodipine 10 mg tablet 05/31 completed Not Available Not Available Not Available doxycycline monohydrate 100 mg capsule Take 1 capsule twice a day by oral route for 10 days. 05/02 completed Not Available Not Available Not Available hydrocodone 7.5 mg-acetamin ophen 325 mg tablet 12/05 completed Not Available Not Available Not Available cephalexin 500 mg capsule TAKE 1 CAPSULE BY MOUTH EVERY 6 HOURS 05/31 completed Not Available Not Available Not Available warfarin 5 mg tablet 12/11 completed Not Available Not Available Not Available metronidazo le 0.75 % topical cream 12/11 completed Not Available Not Available Not Available gabapentin 300 mg capsule 12/05 completed Not Available Not Available Not Available mupirocin 2 % topical ointment 12/05 completed Not Available Not Available Not Available furosemide 20 mg tablet 05/31 completed Not Available Not Available Not Available gabapentin 100 mg capsule 12/05 completed Not Available Not Available Not Available warfarin 1 mg tablet TAKE 1 TABLET BY MOUTH ONCE DAILY 05/31 completed Not Available Not Available Not Available polyethylen e glycol 3350 17 gram/dose oral powder 12/05 completed Not Available Not Available Not Available levofloxaci n 500 mg tablet 12/05 completed Not Available Not Available Not Available celecoxib 100 mg capsule 12/05 completed Not Available Not Available Not Available losartan 100 mg tablet active Not Available Not Available Not Available tobramycin 0.3 %-dexametha sone 0.1 % eye drops,suspe nsion 12/05 completed Not Available Not Available Not Available oxycodone 5 mg tablet 02/12 completed Not Available Not Available Not Available enoxaparin 30 mg/0.3 mL subcutaneou s syringe INJECT 30MG (0.3ML) SUBCUTANE OUSLY EVERY 12 HOURS AND STOP THE LOVENOX WHEN INR IS GREATER THAN OR EQUAL TO 2.0 05/31 completed Not Available Not Available Not Available Eliquis 5 mg tablet active Not Available Not Available No t Available Vitals Date Recorded Body height Provider Name an d Address Organization Details Last Updated DateTime 02/06/2022 162.56 cm Not Available [facility] 3 19:27:11 Date Recorded Body height Provider Name an d Address Organization Details Last Updated DateTime 02/13/2022 162.56 cm Not Available [facility] 3 19:27:11 Date Recorded Body mass index (BMI) Body height Body weight Provider Name and Address Organization Details Last Updated DateTime 03/13/2022 31.1 kg/m2 165.1 cm 55256.77 g Not Available [facility] 10/16/2022 19:27:11 Date Recorded Body height Body temperature Provider N mylene and Address Organization Details Last Updated DateTime 05/31/2024 165.1 cm 97.9 [degF] Arlin Pina RN [place] [facility] [place] [facility] 05/31/2024 14:30:07 Date Recorded Body height Provider Name an d Address Organization Details Last Updated DateTime 07/06/2021 162.56 cm Not Available [facility] 19:27:11 Social History Question Answer Notes LastModified by Organizat ion Details LastModified Time Tobacco Smoking Status Never Smoker Not Available [facility] 10/16/2022 19:26:52 What Was The Date Of Your Most Recent Tobacco Screening? 12/25/2020 [id number] Information not available 10/16/2022 Sex: Unknown Functional Status Question Answer Note LastModified by Organizat ion Details LastModified Time What is your level of alcohol consumption? Occasional [email or web address] Information not available 05/31/2024 Mental Status None recorded. Family History Relationship Description Onset Age of this Age Resolved Age Notes LastModified by Organization Details LastModified Time Unspecified Relation Family history of malignant neoplasm [id number] Not available 10/16/2022 19:27:02 Notes:NO ENT Medical History Condition Response BLINDNESS N KIDNEY STONES N MRSA N CARPAL TUNNEL SYNDROME N LUNG DISEASE/DISORDER N HISTORY OF DRUG ABUSE N RADIATION / CHEMOTHERAPY N COPD N SPORTS INJURY N ANKLE PAIN N BLOOD DISEASES N SCHIZOPHRENIA N SHINGLES N BOWEL PROBLEMS N SHOULDER PAIN N DEPRESSION (INCLUDING POST ) N STROKE/TIA N KNEE PAIN N ULCERS N BENIGN PROSTATIC HYPERPLASIA N OBESITY N GERD/NAUSEA N ANEURYSM N URINARY/BLADDER/KIDNEY PROBLEMS N CORONARY ARTERY DISEASE (CAD) N ADDICTION CONCERNS N USE OF BLOOD THINNERS Y SKIN PROBLEMS N EMPHYSEMA N MUSCLE,JOINT OR BONE PROBLEMS N DVT N STOMACH ULCERS N BLOOD CLOTS N USE OF NSAIDS N CONCUSSION OR SPINAL TRAUMA N NEUROPATHY N AIDS/HIV N FRACTURES N ELBOW PAIN N HYPERTENSION N TOURETTE'S N ANXIETY DISORDER N Metal allergy N BLOOD TRANSFUSION N ANEMIA/BLOOD DISORDER N BIPOLAR DISORDER N BRONCHITIS N OSTEOARTHRITIS N TUBERCULOSIS N FOOT PROBLEM N HEART VALVE DISORDERS N ALLERGIES/HAYFEVER N SOFT TISSUE INJURY N INFECTIOUS DISEASE N HEART ARRHYTHMIA N INSOMNIA N RHEUMATOID ARTHRITIS N HIGH CHOLESTEROL / HYPERLIPIDEMIA N EDEMA N CHRONIC PAIN SYNDROME N CAROTID BLOCKAGE N BACK / NECK PROBLEMS N HAVE YOU BEEN HOSPITALIZED OR SEEN IN [facility] IN THE PAST YEAR ? N BURSITIS N HERNIATED DISC N DIALYSIS N FIBROMYALGIA N OSTEOPOROSIS N ARTHRITIS N NO SIGNIFICANT PAST MEDICAL HISTORY N PERIPHERAL NEUROPATHY N DIABETES, TYPE Y HEARTBURN / REFLUX N HEPATITIS / LIVER DISEASE N GOUT N SLEEP DISORDER N ALZHEIMER'S DISEASE N HERPES N SEIZURES/EPILEPSY N HEADACHES/MIGRAINES N VASCULAR DISEASE N HIP PAIN N Blood Disorder N DIZZINESS N HEAD TRAUMA OR INJURY N HEART DISEASE/HEART PROBLEMS N MULTIPLE SCLEROSIS N CARDIAC ARRHYTHMIA N CANCER: SPECIFY N ANESTHESIA COMPLICATIONS N ATRIAL FIBRILLATION N AUTOIMMUNE DISEASE N Gynecological HistoryNo gynecological history recorded. Obstetrics History GPAL:G 0 P 0 0 0 0 Past Encounters Encounter ID Performer Location Encounter Start Date Encounter Closed Date Diagnosis/Indication Diagnosis SNOMED-CT Code Diagnosis ICD10 Code Diagnosis Note [id number] Josue Vaca MD [facility] [place] [address] [facility] [address] [place] [address] 12/11/2020 00:00:00 12/13/2020 08:37:36 [id number] Josue Vaca MD [facility] [place] [address] [facility] [address] [place], [place] [address] 12/25/2020 00:00:00 12/25/2020 16:36:04 [id number] Josue Vaca MD [facility] [place] [address] [facility] [address] [place], [place] [address] 02/12/2021 00:00:00 02/12/2021 16:50:17 [id number] Josue Vaca MD [facility] [place] [address] [facility] [address] [place], [place] [address] 02/26/2021 00:00:00 02/26/2021 15:48:34 [id number] Josue Vaca MD [facility] [place] [address] [facility] [address] [place], [place] [address] 03/12/2021 00:00:00 03/12/2021 15:27:04 [id number] Josue Vaca MD [facility] [place] [address] [facility] [address] [place] [address] 04/09/2021 00:00:00 04/15/2021 20:57:34 [id number] Josue Vaca MD [facility] [place] [address] [place] [address] 05/02/2021 00:00:00 05/02/2021 12:01:53 [id number] Josue Vaca MD [facility] [place] [address] [facility] [address] [place] [address] 07/06/2021 00:00:00 07/09/2021 13:47:44 [id number] Josue Vaca MD [facility] [place] [address] [place] [address] 02/06/2022 00:00:00 02/18/2022 13:01:50 [id number] Josue Vaca MD [facility] [place] [address] [place] [address] 02/13/2022 00:00:00 02/18/2022 12:23:01 [id number] Josue Vaca MD [facility] [place] [address] [facility] [address] [place] [address] 03/13/2022 00:00:00 03/13/2022 12:00:22 [id number] Valentin Carlos MD [facility] [place] [address] [place] [address] 05/31/2024 14:13:33 05/31/2024 14:45:47 Mixed conductive and sensorineural hearing loss, bilateral 135716054 H90.6 audiogram completed at [facility] on 04/22/2024 revealing conductive hearing loss right greater than the left. Health Concerns Section Related Observation LastModified by Organization Detai ls LastModified Time None Recorded Concern Status LastModified by Organization Details LastModified Time None Recorded Advance Directives Directive None Recorded Payers Insurance Date Sequence Insurance Name Policy Number Policy Mercado Covered Member ID Mercado Member ID Guarantor Name 05/31/2024 1 [facility] (MEDICARE REPLACEMENT/ ADVANTAGE - PPO) [id number] Reva Pan [id number] Reva Pan Notes Date Note Type Note Provider Name and Address Organization Details Recorded Time 05/31/2024 text/html This patient has a past medical history significant for diabetes and osteoarthritis who presents to the office with a complaint of bilateral hearing loss. She states that her hearing has worsened over the past 3 months. She had had a an audiogram completed at [facility] on 04/22/2024 revealing conductive hearing loss Right greater than the left. She presents by the recommendations of [facility] for an ENT clearance for hearing aids. She denies any exposures to loud noises throughout her lifetime. She does reports right tinnitus. Arlin Cleveland, CLINICAL SCIENCE CONSULTANT [address] [address], [place], [address], [place] [facility] 05/31/2024 14:45:16 OBGyn Episode No OBEpisode recorded.
--- OUTSIDE RECORDS SUMMARY | 2025-02-15 09:05 | XMS_ITS | Encounter Summary ---
Author Organization [facility] Address [address] [place] [address] Care Team Providers Care Flakeboard Line Tender Name Role Phone Sabas Moreira MD Primary Care Provider Ernie Pearson MD Unavailable Encounter Details Date Type Department Care Team (Late st Contact Info) Description 01/23/2019 Abstract [facility]FL CONVERSION [address] [place] [address] , Generic Conversion, Social History Tobacco Use Types Packs/Day Years Used Date Smoking Tobacco: Never Smokeless Tobacco: Never Alcohol Use Standard Drinks/Week Comments No 0 (1 standard drink = 0.6 oz pur e alcohol) Comments Unknown Sex and Gender Information Value Date Recorded Sex Assigned at Not on file 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
--- OUTSIDE RECORDS SUMMARY | 2025-02-15 09:05 | XMS_ITS | Referral Summary ---
Author Organization [facility] [address] Address [address] [place] [address] Care Team Providers Care Rn Relief Charge Name Role Phone Sabas Moreira MD Primary Care Provider [phone] Allergies No known active allergies Medications warfarin (COUMADIN) 5 mg tablet Take 5 mg by mouth daily 07/07/2017 Active HYDROcodone-acet aminophen (NORCO) 10-325 mg per tablet Take 1 tablet by mouth every 4 (four) hours as needed 06/06/2020 Active cholecalciferol (cholecalciferol ) 400 unit capsule Take 400 Units by mouth daily Active losartan (COZAAR) 100 mg tablet 01/01/2021 Active calcium carbonate (CALCIUM 500 ORAL) Take by mouth Active magnesium gluconate 200 mg tabletIndication s:hypomagnesemia 200 mg Act dao apixaban (Eliquis) 5 mg tablet Active Active Problems Problem Noted Date Diagnosed Date LBBB (left bundle branch block) 01/01/2021 Hypertension 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 Preop cardiovascular exam Social History Tobacco Use Types Packs/Day Years Used Date Smoking Tobacco: Never Smokeless Tobacco: Never Comments Unknown Sex and Gender Information Value Date Recorded Sex Assigned at Not on file 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 Gender Identity Not on file Sexual Orientation Not on file Last Filed Vital Signs Vital Sign Reading Time Taken Comments Blood Pressure 122/70 01/01/2021 10:34 AM CDT Pulse 57 01/01/2021 10:34 AM CDT Temperature - - Respiratory Rate - - Oxygen Saturation 95% 01/01/2021 10:34 AM CDT Inhaled Oxygen Concentration - - Weight 92.5 kg (204 lb) 09/01/2024 12:34 PM WELLNESS SPA MANAGER Height 165.1 cm (5' 5) 09/01/2024 12:34 PM WELLNESS SPA MANAGER Body Mass Index 33.95 09/01/2024 12:34 PM WELLNESS SPA MANAGER Plan of Treatment Not on file Insurance [facility] MEDICARE ADVANTAGE [facility] Address: [address] [address] MEDICARE ADVANTAGE [facility] Address: [id number] [place] [address] Care Teams Rn Relief Charge Relationship Specialty Start Date End Date Sabas Moreira MD [address] [place] [address] PCP - General 03/12/07
--- OUTSIDE RECORDS SUMMARY | 2025-02-15 09:05 | XMS_ITS | Clinical Summary ---
Author Organization [facility] [address] Address [address] [place] [address] Care Team Providers Care Powder Coater Name Role Phone Sabas Moreira MD Primary Care Provider + [phone] Allergies No known active allergies Medications warfarin [...] vein of lower extremity Preop cardiovascular exam Surgical History Surgery Date Site/Laterality Comments SECTION x3 KNEE SURGERY Medical History Medical History Date Comments Hypertension Arthritis Family History Medical History Relation Name Comments Stomach cancer Brother 1 Emphysema Father Heart attack Mother Cancer Sister 1 Cancer Sister 2 Relation Name Status Comments Brother 1 (Age 65) Brother 2 (Age 84) Father (Age 87) Mother Alive Sister 1 (Age 69) Sister 2 (Age 62) Social History Tobacco Use Types Packs/Day Years Used Date Smoking Tobacco: Never Smokeless Tobacco: Never Comments Unknown Sex and Gender Information Value Date Recorded Sex Assigned at Not on file Legal Sex Female 12:26 AM BUSINESS INTELLIGENCE DIRECTOR Gender Identity Not on file Sexual Orientation Not on file Obstetrics History Last Filed Vital Signs Vital Sign Reading Time Taken Comments Blood Pressure 122/70 01/01/2021 10:34 AM CDT Pulse 57 01/01/2021 10:34 AM CDT Temperature - - Respiratory Rate - - Oxygen Saturation 95% 01/01/2021 10:34 AM CDT Inhaled Oxygen Concentration - - Weight 92.5 kg (204 lb) 09/01/2024 12:34 PM BUSINESS INTELLIGENCE DIRECTOR Height 165.1 cm (5' 5) 09/01/2024 12:34 PM BUSINESS INTELLIGENCE DIRECTOR Body Mass Index 33.95 09/01/2024 12:34 PM BUSINESS INTELLIGENCE DIRECTOR Plan of Treatment Health Maintenance Due Date Last Done Comments Depression Screening 1938 Fall Risk Assessment 1938 Osteoporosis Screening-Bone Density Scan 1938 DTaP/Tdap/Td Vaccine (1 - Tdap) 1949 Hepatitis B Screening 1956 Zoster Vaccine (1 of 2) 1988 Well Visit 65+ 2003 Pneumococcal vaccine 65+ (2 of 2 - PPSV23) 07/06/2019 07/06/2018 Influenza Vaccine (Season Ended) 2025 07/07/20 17, 05/13/[address] [facility] MEDICARE ADVANTAGE Care Teams Powder Coater Relationship Specialty Start Date End Date Sabas Moreira MD [address] [place] [address] PCP - General 03/12/07
== END 2025-02-15 08:59 | disposition home or self-care (01) ==
LOC: CHSIMG 09:00
PROVIDERS: PCP Internal Medicine; Visit Provider Internal Medicine
DX: E04.2 Nontoxic multinodular goiter (principal)
CPT/HCPCS: 76536

== ENCOUNTER 2025-03-01 13:29 | Outpatient (CLI) | payer MEDICARE, SELFPAY ==
--- OUTSIDE RECORDS SUMMARY | 2025-03-01 13:33 | XMS_ITS | Clinical Summary ---
Author Organization [facility] [address] Address [address] [place] [address] Care Team Providers Care Information Assoc Name Role Phone Sabas Moreira MD Primary Care Provider [phone] Allergies No known active allergies Medications warfarin [...] on file Legal Sex Female 12:26 AM OSTEOLOGY TEACHER Gender Identity Not on file Sexual Orientation Not on file Obstetrics History Last Filed Vital Signs Vital Sign Reading Time Taken Comments Blood Pressure 122/70 01/01/2021 10:34 AM CDT Pulse 57 01/01/2021 10:34 AM CDT Temperature - - Respiratory Rate - - Oxygen Saturation 95% 01/01/2021 10:34 AM CDT Inhaled Oxygen Concentration - - Weight 92.5 kg (204 lb) 09/01/2024 12:34 PM OSTEOLOGY TEACHER Height 165.1 cm (5' 5) 09/01/2024 12:34 PM OSTEOLOGY TEACHER Body Mass Index 33.95 09/01/2024 12:34 PM OSTEOLOGY TEACHER Plan of Treatment Health Maintenance Due Date Last Done Comments Depression Screening 1938 Fall Risk Assessment 1938 Osteoporosis Screening-Bone Density Scan 1938 DTaP/Tdap/Td Vaccine (1 - Tdap) 1949 Hepatitis B Screening 1956 Zoster Vaccine (1 of 2) 1988 Well Visit 65+ 2003 Pneumococcal vaccine 65+ (2 of 2 - PPSV23) 07/06/2019 07/06/2018 Influenza Vaccine (Season Ended) 2025 07/07/20 17, 05/13/2017 Insurance [facility] MEDICARE ADVANTAGE Care Teams Information Assoc Relationship Specialty Start Date End Date Sabas Moreira MD [address] [place] [address] PCP - General 03/12/07
--- OUTSIDE RECORDS SUMMARY | 2025-03-01 13:33 | XMS_ITS | Clinical Summary ---
Author Organization [facility] Address [facility] [place] [address] Care Team Providers Care Servicing Rep Name Role Phone Sabas Moreira MD Primary Care Provider [phone] Ernie Pearson MD Unavailable Allergies Active Allergy [...] on file Legal Sex Female 3:23 PM VARNISH MELTER Gender Identity Not on file Sexual Orientation [...] age to complete this topic Insurance MEDICARE [facility] Care Teams Servicing Rep Relationship Specialty Start Date End Date Sabas Moreira MD [address] [place] [address] PCP - General INTERNAL MEDICINE 02/12/18 Ernie Pearson MD [address] [place] [address] Vascular/Membership Sales Advisor INTERNAL MEDICINE 02/12/18
--- OUTSIDE RECORDS SUMMARY | 2025-03-01 13:33 | XMS_ITS | Data Portability ---
Author Organization [facility], Main Office Address [address] [place] [address] Care Team Providers Care Camp Attendant Name Role Phone KRISTIE SIFUENTES Primary Care Provider [phone] KRISTIE SIFUENTES Referring Provider Assessment No assessment [...] By Organization Details Last Modified Time 05/31/2024 [id number] Discussed with patient and her daughter that she is cleared by ENT to trial hearing aids to aid in improvement of hearing. Not available 05/31/2024 14:45:13 Reason for Referral None Reported. Results Created Date Observation Date Name Description Value Unit Range Abnormal Flag Note LastModifiedBy Organization Detail LastModifiedTime 07/06/20 21 04/27/2021 MRI, lumba r spine , w/o contr ast No observ ation record ed. [id number] Not Available 10/16/2022 19:28:42 07/06/20 21 04/27/2021 MRI, shoul candelaria, w/o contr ast No observ ation record ed. [id number] Not Available 10/16/2022 19:28:42 07/06/20 21 04/27/2021 MRI, cervi jarrett spine , w/o contr ast No observ ation record ed. [id number] Not Available 10/16/2022 19:28:42 02/07/20 22 02/07/2022 XR, knee No observ ation record ed. [id number] [facility] [address], [place], [address], 10/16/2022 19:28:42 03/01/20 22 03/01/2022 XR, knee No observ ation record ed. [id number], [place], [address], 10/16/2022 19:28:42 03/01/20 22 03/01/2022 XR, knee No observ ation record ed. [id number], [place], [address], 10/16/2022 19:28:42 03/01/20 22 03/01/2022 XR, knee No observ ation record ed. [id number], [place], [address], 10/16/2022 19:28:42 Result Notes None recorded. Problems Name Problem SNOMED Code Status Onset Date Resolution Date Notes Provider Name and Address Organization Details Recorded Time Radiotherapy follow-up 391228928 Active Not Available [facility] 3 19:27:36 Localized, primary osteoarthriti s of the pelvic region and thigh 039338495 Active Not Available [facility] 3 19:27:36 Osteoarthriti s 890996639 Active Not Available [facility] 3 19:27:36 Mixed conductive and sensorineural hearing loss, bilateral 040228042 Active 2023 VAN Mathur [address] [facility] [address], [place], [address] , [facility] [employer] [facility] 4 14:44:21 Problem Notes None recorded. Medical [...] Updated DateTime 02/06/2022 162.56 cm Not Available [facility] 3 19:27:11 Date Recorded Body height Provider Name an d Address Organization Details Last Updated DateTime 02/13/2022 162.56 cm Not Available [facility] 3 19:27:11 Date Recorded Body mass index (BMI) Body height Body weight Provider Name and Address Organization Details Last Updated DateTime 03/13/2022 31.1 kg/m2 165.1 cm 06020.77 g Not Available [facility] 10/16/2022 19:27:11 Date Recorded Body height Body temperature Provider N mylene and Address Organization Details Last Updated DateTime 05/31/2024 165.1 cm 97.9 [degF] Arlin Pina RN [place] [facility] [place] [employer] [facility] 05/31/2024 14:30:07 Date Recorded Body height Provider Name an d Address Organization Details Last Updated DateTime 07/06/2021 162.56 cm Not Available [facility] 19:27:11 Social History Question Answer Notes LastModified by Organizat ion Details LastModified Time Tobacco Smoking Status Never Smoker Not Available [facility] 10/16/2022 19:26:52 What Was The Date Of Your Most Recent Tobacco Screening? 12/25/2020 [id number] Information not available 10/16/2022 Sex: Unknown Functional Status Question Answer Note LastModified by Organizat ion Details LastModified Time What is your level of alcohol consumption? Occasional [email or web address] Information not available 05/31/2024 Mental Status None recorded. Family History Relationship Description Onset Age of this Age Resolved Age Notes LastModified by Organization Details LastModified Time Unspecified Relation Family history of malignant neoplasm [id number] Not available 10/16/2022 19:27:02 Notes:NO ENT Medical [...] HAVE YOU BEEN HOSPITALIZED OR SEEN IN [facility] IN THE PAST YEAR ? N BURSITIS [...] SNOMED-CT Code Diagnosis ICD10 Code Diagnosis Note [id number] Josue Vaca MD [facility] [address] [facility] [address] [place] [address] 12/11/2020 00:00:00 12/13/2020 08:37:36 [id number] Josue Vaca MD [facility] [address] [facility] [address] [place], [place] [address] 12/25/2020 00:00:00 12/25/2020 16:36:04 [id number] Josue Vaca MD [facility] [address] [facility] [address] [place], [place] [address] 02/12/2021 00:00:00 02/12/2021 16:50:17 [id number] Josue Vaca MD [facility] [address] [facility] [address] [place], [place] [address] 02/26/2021 00:00:00 02/26/2021 15:48:34 [id number] Josue Vaca MD [facility] [address] [facility] [address] [place], [place] [address] 03/12/2021 00:00:00 03/12/2021 15:27:04 [id number] Josue Vaca MD [facility] [address] [facility] [address] [place] [address] 04/09/2021 00:00:00 04/15/2021 20:57:34 [id number] Josue Vaca MD [facility] [address] [place] [address] 05/02/2021 00:00:00 05/02/2021 12:01:53 [id number] Josue Vaca MD [facility] [address] [facility] [address] [place] [address] 07/06/2021 00:00:00 07/09/2021 13:47:44 [id number] Josue Vaca MD [facility] [address] [place] [address] 02/06/2022 00:00:00 02/18/2022 13:01:50 [id number] Josue Vaca MD [facility] [address] [place] [address] 02/13/2022 00:00:00 02/18/2022 12:23:01 [id number] Josue Vaca MD [facility] [address] [facility] [address] [place] [address] 03/13/2022 00:00:00 03/13/2022 12:00:22 [id number] Valentin Carlos MD [facility] [address] [place] [address] 05/31/2024 14:13:33 05/31/2024 14:45:47 Mixed conductive and sensorineural hearing loss, bilateral 071205571 H90.6 audiogram completed at [facility] on 04/22/2024 revealing conductive hearing loss right greater than the left. Health Concerns Section Related Observation LastModified by Organization Detai ls LastModified Time None Recorded Concern Status LastModified by Organization Details LastModified Time None Recorded Advance Directives Directive None Recorded Payers Insurance Date Sequence Insurance Name Policy Number Policy Mercado Covered Member ID Mercado Member ID Guarantor Name 05/31/2024 1 [facility] (MEDICARE REPLACEMENT/ ADVANTAGE - PPO) [id number] Reva Pan [id number] Reva Pan Notes Date Note Type Note Provider Name and Address Organization Details Recorded Time 05/31/2024 text/html This patient has a past medical history significant for diabetes and osteoarthritis who presents to the office with a complaint of bilateral hearing loss. She states that her hearing has worsened over the past 3 months. She had had a an audiogram completed at [facility] on 04/22/2024 revealing conductive hearing loss Right greater than the left. She presents by the recommendations of [facility] for an ENT clearance for hearing aids. She denies any exposures to loud noises throughout her lifetime. She does reports right tinnitus. Arlin Cleveland, FLEA MARKET SELLER [address] [address], [place], [address], [place] [facility] 05/31/2024 14:45:16 OBGyn Episode No OBEpisode recorded.
--- OUTSIDE RECORDS SUMMARY | 2025-03-01 13:33 | XMS_ITS | Encounter Summary ---
Author Organization [facility] Address [address] [place] [address] Care Team Providers Care Double Reamer Operator Name Role Phone Sabas Moreira MD Primary Care Provider [phone] Ernie Pearson MD Unavailable Encounter Details Date Type Department Care Team (Late st Contact Info) Description 01/23/2019 Abstract [facility] CONVERSION [address] [place] [address] , Generic Conversion, Social History Tobacco Use Types Packs/Day Years Used Date Smoking Tobacco: Never Smokeless Tobacco: Never Alcohol Use Standard Drinks/Week Comments No 0 (1 standard drink = 0.6 oz pur e alcohol) Comments Unknown Sex and Gender Information Value Date Recorded Sex Assigned at Not on file Legal Sex Female 3:23 PM ROTARY PUMP OPERATOR Gender Identity Not on file Sexual Orientation Not on file documented as of this encounter Plan of Treatment Not on file documented as of this encounter Visit Diagnoses Not on filedocumented in this encounter Care Teams Double Reamer Operator Relationship Specialty Start Date End Date Sabas Moreira MD [address] [place] [address] PCP - General INTERNAL MEDICINE 02/12/18 Ernie Pearson MD [address] [place] [address] Vascular/Tumbling Instructor INTERNAL MEDICINE 02/12/18 documented as of this encounter
--- OUTSIDE RECORDS SUMMARY | 2025-03-01 13:33 | XMS_ITS | Clinical Summary ---
Author Organization [facility] Address [address] [place] [address] Phone Care Team Providers Care Echo Technologist Name Role Phone Sabas Moreira MD Primary [...] 1-dose 75+ series) 2013 INFLUENZA VACCINE (#1) 2025 Medical Devices Implanted Type Area Hyperion Essbase Developer Device Identifier Shelf Expiration Date Model / Serial / Lot Hemostatic Surgiflo 8ml W/Thrombin 2994 - [id number] Implanted:Qty: 1 on 06/05/2020 by Randy Moran MD at [facility] Hemostatic N/A: Spine Lumbar [employer]- [employer] 05/17/2021 2994 / / [id number] Hemostatic Surgiflo 8ml W/Thrombin 2994 - [id number] Implanted:Qty: 1 on 06/05/2020 by Randy Moran MD at [facility] Hemostatic N/A: Spine Lumbar [employer] 05/17/2021 2994 / / [id number] Sealant Fibrin Evicel 5ml 3905 - [id number] Implanted:Qty: 1 on 06/05/2020 by Randy Moran MD at [facility] Other N/A: Spine Lumbar [employer] 10/15/2021 3905 / / [id number] Insurance [facility] [id number] RX [employer] RX Member Subscriber Plan / Payer (Ef fective 2019-Present) Name:Reva Pan Relation to Subscriber:Self Name:Reva Pan Payer ID:Not on file Group ID:[id number] Type:RX Medicare Part D Address: [address] Advance Directives For more information, please contact: [phone] * Full Code (Latest Code Status on File) Date Activated Date Inactivated Comments 06/05/2020 6:58 PM 06/06/2020 4:00 PM Care Teams Echo Technologist Relationship Specialty Start Date End Date Sabas Moreira MD [address] [place] [address] PCP - General Internal Medicine 05/29/20
--- OUTSIDE RECORDS SUMMARY | 2025-03-01 13:33 | XMS_ITS | Referral Summary ---
Author Organization [facility] [address] Address [address] [place] [address] Care Team Providers Care Afterschool Name Role Phone Sabas Moreira MD Primary Care Provider [phone] Allergies No known active allergies Medications warfarin [...] on file Legal Sex Female 12:26 AM ADJUNCT SPANISH INSTRUCTOR Gender Identity Not on file Sexual Orientation Not on file Last Filed Vital Signs Vital Sign Reading Time Taken Comments Blood Pressure 122/70 01/01/2021 10:34 AM CDT Pulse 57 01/01/2021 10:34 AM CDT Temperature - - Respiratory Rate - - Oxygen Saturation 95% 01/01/2021 10:34 AM CDT Inhaled Oxygen Concentration - - Weight 92.5 kg (204 lb) 09/01/2024 12:34 PM ADJUNCT SPANISH INSTRUCTOR Height 165.1 cm (5' 5) 09/01/2024 12:34 PM ADJUNCT SPANISH INSTRUCTOR Body Mass Index 33.95 09/01/2024 12:34 PM ADJUNCT SPANISH INSTRUCTOR Plan of Treatment Not on file Insurance [facility] MEDICARE ADVANTAGE [facility] MEDICARE Address: [address] [address] MEDICARE ADVANTAGE [facility] MEDICARE Address: [id number] [place] [address] Care Teams Afterschool Relationship Specialty Start Date End Date Sabas Moreira MD [address] [place] [address] PCP - General 03/12/07
--- NOTE | 2025-03-01 13:34 | ECHO_ITS ---
Patient Info Name: Reva Pan Age: 84 years : 1940 Gender: Female Ht: 65 in Wt: 200 lbs BSA: 2.07 m2 HR: 60 bpm BP: 150 / 99 mmHg Technical Quality: Good Exam Date: 03/01/2025 1:40 PM Patient Status: O Admit Date: 03/01/2025 Exam Type: CA echo doppler color flow Complete two-dimensional, color flow and Doppler transthoracic echocardiogram is performed. Rn Liaison: Melissa Gamboa Attending Provider: Soy Brown DO Summary 1. Complete two-dimensional, color flow and Doppler transthoracic echocardiogram is performed. 2. Left ventricular chamber dimension is normal. 3. Left ventricular systolic function is normal, estimated at 60-65. 4. The left ventricular diastolic function is grade I diastolic dysfunction. 5. E/e' 15 is elevated. 6. Left atrial chamber dimension is mildly enlarged. 7. There is mild aortic valve sclerosis. 8. There is trace aortic valve regurgitation. 9. The mitral valve has a mildly calcified annulus. 10. There is mild mitral valve regurgitation. 11. There is mild tricuspid valve regurgitation. 12. No pulmonary hypertension, estimated pulmonary arterial systolic pressure is 34 mmHg. Left Ventricle E/e' 15 is elevated. Left ventricular chamber dimension is normal. Left ventricular systolic function is normal, estimated at 60-65. The left ventricular diastolic function is grade I diastolic dysfunction. Right Ventricle Right ventricular chamber dimension is normal. Right ventricular systolic function is normal and with normal TAPSE 2.3 cm. Left Atria Left atrial chamber dimension is mildly enlarged. Right Atria Right atrial chamber dimension is normal. Aortic Valve The aortic valve is trileaflet. There is mild aortic valve sclerosis. There is no aortic valve stenosis. There is trace aortic valve regurgitation. Pulmonic Valve There is no pulmonic regurgitation. Mitral Valve The mitral valve has a mildly calcified annulus. There is no mitral valve stenosis. There is mild mitral valve regurgitation. Tricuspid Valve There is mild tricuspid valve regurgitation. No pulmonary hypertension, estimated pulmonary arterial systolic pressure is 34 mmHg. Pericardium/Pleural There is no pericardial effusion. Inferior Vena Cava Normal inferior vena cava with >50% collapse upon inspiration consistent with normal right atrial pressure, 5 mmHg. Aorta The aortic root size at the sinus of Valsalva is normal. Left Ventricular Outflow Tract Name Value Normal LVOT 2D LVOT Diameter 2.0 cm LVOT Doppler LVOT Peak Velocity 99 cm/s LVOT Peak Gradient 4 mmHg LVOT Mean Gradient 2 mmHg LVOT VTI 24 cm LVOT VTI/AV VTI Ratio 0.5 LVOT Stroke Volume 75 ml LVOT CO 4.2 l/min LVOT CI 2.0 l/min/m2 Pulmonic Valve Name Value Normal PV Doppler PV Peak Velocity 109 cm/s PV Peak Gradient 5 mmHg Mitral Valve Name Value Normal MV Doppler MV Peak Gradient 8 mmHg MV Mean Gradient 2 mmHg MV Area (Cont Eq VTI) 1.8 cm2 MV Regurgitation Doppler MR Peak Gradient 119 mmHg MV Diastolic Function MV E Peak Velocity 83 cm/s MV A Peak Velocity 112 cm/s MV E/A 0.7 MV Decel Time (PW) 327 ms MV Annular TDI MV E/e' (Septal) 19.6 MV E/e' (Lateral) 12.4 MV E/e' (Average) 16.0 Tricuspid Valve Name Value Normal TV Regurgitation Doppler TR Peak Velocity 272 cm/s TR Peak Gradient 29 mmHg Estimated PAP/RSVP RA Pressure 5 mmHg <=5 PA Systolic Pressure 34 mmHg <36 RV Systolic Pressure 34 mmHg <36 TV Annular TDI TV Lateral Gloria s' Velocity 7.8 cm/s >=9.5 Aortic Valve Name Value Normal AV 2D/MM AV Area (Planimetry) 1.8 cm2 AV Doppler AV Peak Velocity 212 cm/s AV Peak Gradient 17 mmHg AV Mean Gradient 9 mmHg AV VTI 48 cm AV Area (Cont Eq VTI) 1.6 cm2 >=3.0 AV Area (Cont Eq Angel) 1.5 cm2 AV DI (Angel) 0.47 AV Regurgitation 2D LVOT Area 3.1 cm2 Ventricles Name Value Normal LV Dimensions 2D/MM IVS Diastolic Thickness (2D) 1.1 cm 0.6-1.0 LVID Diastole (2D) 4.2 cm 3.8-5.2 LVIW Diastolic Thickness (2D) 1.0 cm 0.6-0.9 LVID Systole (2D) 3.0 cm 2.2-3.5 LVOT Diameter 2.0 cm LV Mass (2D Cubed) 141.68 g 67.00-162.00 LV Mass Index (2D Cubed) 68 g/m2 43-95 Relative Wall Thickness (2D) 0.46 <=0.42 LV Fractional Shortening/Ejection Fraction 2D/MM LV Fractional Shortening (2D) 28 % 27-45 LV EF (2D Teichadamz) 55 % LV Diastolic Volume (4C MOD) 93 ml LV EF (4C MOD) 66 % LV Diastolic Volume (2C MOD) 93 ml LV EF (2C MOD) 62 % LV Diastolic Volume (BP MOD) 93 ml 46-106 LV Diastolic Volume Index (BP MOD) 45 ml/m2 29-61 LV Systolic Volume (BP MOD) 34 ml 14-42 LV Systolic Volume Index (BP MOD) 17 ml/m2 8-24 LV EF (BP MOD) 63 % 54-74 LV Diastolic Length (4C) 8.2 cm LV Systolic Length (4C) 6.5 cm LV Stroke Volume (4C MOD) 62 ml Atria Name Value Normal LA Dimensions LA Volume (4C A-L) 68 ml LA Volume (BP A-L) 66 ml RA Dimensions RA Systolic Major [place] Length (4C) 5.4 cm 2.2-2.8 RA Area (4C) 15.3 cm2 <=18.0 Report Signatures
== END 2025-03-01 13:30 | disposition home or self-care (01) ==
PROVIDERS: PCP Internal Medicine; Visit Provider Internal Medicine Cardiovascular Disease
DX: I35.0 Nonrheumatic aortic (valve) stenosis (principal); I08.1 Rheumatic disorders of both mitral and tricuspid valves
CPT/HCPCS: 93306

== ENCOUNTER 2025-05-24 13:01 | Outpatient (CLI) | payer MEDICARE, SELFPAY ==
--- NOTE | ~2025-05-24 | MM_ITS ---
EXAMINATION: MM screening konrad BI w nigel HISTORY: Screening TECHNIQUE: Craniocaudal and mediolateral oblique 3-D tomosynthesis images were obtained and synthetic 2-D images were generated. CAD analysis was submitted and interpreted. COMPARISON: Comparison to multiple prior studies sequentially, with oldest reviewed study dated , 06/10/2013 BREAST PARENCHYMAL COMPOSITION: The breasts are almost entirely fatty. FINDINGS: There is no evidence of suspicious mass, calcification, or architectural distortion to suggest malignancy in either breast. IMPRESSION: 1. No mammographic evidence of malignancy. 2. Recommend routine screening mammography in one year. BI-RADS Category 1: Negative Reviewed, dictated and finalized at location B.
--- OUTSIDE RECORDS SUMMARY | 2025-05-24 13:54 | XMS_ITS | Clinical Summary ---
Author Organization [facility] Address [address] [place] [address] Phone Care Team Providers Care Cloth Neutralizer Name Role Phone Sabas Moreira MD Primary [...] (#1) 2025 Medical Devices Implanted Type Area Websphere Consultant Device Identifier Shelf Expiration Date Model / Serial / Lot Hemostatic Surgiflo 8ml W/Thrombin 2994 - [id number] Implanted:Qty: 1 on 06/05/2020 by Randy Moran MD at [facility] Hemostatic N/A: Spine Lumbar [employer]- [employer] 05/17/2021 2994 / / [id number] Hemostatic Surgiflo 8ml W/Thrombin 2994 - [id number] Implanted:Qty: 1 on 06/05/2020 by Randy Moran MD at [facility] Hemostatic N/A: Spine Lumbar [employer] 05/17/2021 2994 / / [id number] Sealant Fibrin Evicel 5ml 3905 - [id number] Implanted:Qty: 1 on 06/05/2020 by Randy Moran MD at [facility] Other N/A: Spine Lumbar [employer]- [employer] 10/15/2021 3905 / / [id number] Insurance [facility] [id number] RX [employer] RX Member Subscriber Plan / Payer (Ef fective 2019-Present) Name:Reva Pan Relation to Subscriber:Self Name:Reva Pan Payer ID:Not on file Group ID:[id number] Type:RX Medicare Part D Address: [address] Advance Directives For more information, please contact: [phone] * Full Code (Latest Code Status on File) Date Activated Date Inactivated Comments 06/05/2020 6:58 PM 06/06/2020 4:00 PM Care Teams Cloth Neutralizer Relationship Specialty Start Date End Date Sabas Moreira MD [address] [place] [address] PCP - General Internal Medicine 05/29/20
--- OUTSIDE RECORDS SUMMARY | 2025-05-24 13:55 | XMS_ITS | Clinical Summary ---
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 MEDICARE Care Teams Tool Straightener Relationship Specialty Start Date End Date Sabas Moreira MD [address] [place] [address] PCP - General INTERNAL MEDICINE 02/12/18 Ernie Pearson MD [address] [place] [address] Vascular/Dinkey Engine Mechanic INTERNAL MEDICINE 02/12/18
--- OUTSIDE RECORDS SUMMARY | 2025-05-24 13:55 | XMS_ITS | Encounter Summary ---
Author Organization [facility] Address [address] [place] [address] Care Team Providers Care A&P Technician Name Role Phone Sabas Moreira MD Primary Care Provider [phone] Ernie Pearson MD Unavailable Encounter Details Date Type Department Care Team (Late st Contact Info) Description 01/23/2019 Abstract SFL CONVERSION [address] [place] [address] , Generic Conversion, Social History Tobacco Use Types Packs/Day Years Used Date Smoking Tobacco: Never Smokeless Tobacco: Never Alcohol Use Standard Drinks/Week Comments No 0 (1 standard drink = 0.6 oz pur e alcohol) Comments Unknown Sex and Gender Information Value Date Recorded Sex Assigned at Not on file 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
--- OUTSIDE RECORDS SUMMARY | 2025-05-24 13:55 | XMS_ITS | Clinical Summary ---
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 Gender Identity Not on file Sexual Orientation Not on file Obstetrics History Last Filed Vital Signs Vital Sign Reading Time Taken Comments Blood Pressure 122/70 01/01/2021 10:34 AM CDT Pulse 57 01/01/2021 10:34 AM CDT Temperature - - Respiratory Rate - - Oxygen Saturation 95% 01/01/2021 10:34 AM CDT Inhaled Oxygen Concentration - - Weight 92.5 kg (204 lb) 09/01/2024 12:34 PM REDUCING SYSTEM OPERATOR Height 165.1 cm (5' 5) 09/01/2024 12:34 PM REDUCING SYSTEM OPERATOR Body Mass Index 33.95 09/01/2024 12:34 PM REDUCING SYSTEM OPERATOR Plan of Treatment Health Maintenance Due Date Last Done Comments Depression Screening 1940 Fall Risk Assessment 1940 Osteoporosis Screening-Bone Density Scan 1940 DTaP/Tdap/Td Vaccine (1 - Tdap) 1949 Hepatitis B Screening 1956 Zoster Vaccine (1 of 2) 1988 Well Visit 65+ 2003 Pneumococcal vaccine 65+ (2 of 2 - PCV20 or PCV21) 07/06/2019 07/06/2018 Influenza Vaccine (#1) 2025 07/07/2017, 2016 Insurance [facility] MEDICARE ADVANTAGE Care Teams Cell Lead Relationship Specialty Start Date End Date Sabas Moreira MD [address] [place] [address] PCP - General 03/12/07
== END 2025-05-24 13:02 | disposition home or self-care (01) ==
LOC: CHSIMG 13:02
PROVIDERS: PCP Internal Medicine; Visit Provider Internal Medicine
DX: Z12.31 Encounter for screening mammogram for malignant neoplasm of breast (principal)
CPT/HCPCS: 77063; 77067